=== PATIENT | female | born 1995 | race African-American/Black ===

== ENCOUNTER 2022-04-14 11:13 | Emergency (ER) | payer OTHER, SELFPAY ==
[2022-04-14] VITALS (8 sets, daily range): BP systolic 106–123; BP diastolic 63–79; PULSE 63–99; RESP 12–20; TEMP 37; O2SAT 98–100
--- NOTE | ~2022-04-14 | CT_ITS ---
EXAMINATION: CT brain wo con INDICATION: Head injury COMPARISON: None TECHNIQUE: Standard unenhanced head CT. The dose-length product (DLP) was 605.33 mGy-cm. The mA was a djusted according to patient size. Iterative reconstruction technique was employed. FINDINGS: There is no intracranial hemorrhage, acute infarction, or abnormal mass lesion. The ventric les are normal. There is no abnormal mass effect or midline shift. The jett-white matter differentiat ion is normal. The basal cisterns are patent. The orbits are normal. The paranasal sinuses, mastoids and calvarium are normal. IMPRESSION: 1. No acute intracranial abnormality. Reviewed, dictated and finalized at location A.
--- NOTE | ~2022-04-14 | XR_ITS ---
EXAMINATION: XR hip BI 2V w AP pelvis DATE: 04/14/2022 14:53 INDICATION: Pelvic pain post fall TECHNIQUE: Anteroposterior view of the pelvis and anteroposterior and frog-leg lateral views of the l eft hip and anteroposterior and frog-leg lateral views of the right hip and were obtained. COMPARISON: None. FINDINGS: Bone alignment is normal. Sacral arches are intact. No fracture. Joint spaces are normal. Soft tissue s are unremarkable. IMPRESSION: 1. Negative pelvis and bilateral hip radiographs. Reviewed, dictated and finalized at location B.
--- NOTE | ~2022-04-14 | XR_ITS ---
EXAMINATION: XR chest 2V DATE: 04/14/2022 14:53 INDICATION: Fall TECHNIQUE: frontal and lateral views of the chest were obtained. COMPARISON: None FINDINGS: The lungs are clear with no focal airspace opacities, pulmonary edema, pleural effusion or pneumothor ax. The cardiomediastinal silhouette is normal. Visualized bones and soft tissues are unremarkable. IMPRESSION: 1. Normal chest radiograph. Reviewed, dictated and finalized at location B. IMPRESSION: 1. Normal chest radiograph.
--- NOTE | ~2022-04-14 | CT_ITS ---
EXAMINATION: CT cervical spine wo con DATE: 04/14/2022 14:43 INDICATION: Neck injury. TECHNIQUE: Computed tomography (CT) of the cervical spine was performed without intravenous contrast. Automated exposure control and iterative reconstruction technique were employed. The dose-length pro duct was 218.76 mGy-cm. COMPARISON: None FINDINGS: There is kyphosis of cervical spine. Vertebral body heights and intervertebral disc heights are normal. At C7-T1, there is mild bilateral facet joint osteoarthritis. No neural foraminal stenos is or central canal stenosis. IMPRESSION: 1. No fracture. Reviewed, dictated and finalized at location A. IMPRESSION: 1. No fracture.
--- NOTE | ~2022-04-14 | CT_ITS ---
EXAMINATION: CT thoracic lumbar wo con DATE: 04/14/2022 14:43 INDICATION: Back injury and pain. TECHNIQUE: Computed tomography (CT) of the thoracic and lumbar spine was performed without intravenou s contrast. Automated exposure control and iterative reconstruction technique were employed. The dose -length product was 1732.56 mGy-cm. COMPARISON: None FINDINGS: CT THORACIC SPINE: There is 3 degrees dextrocurvature of upper thoracic spine. There are Schmorl's no bhavana from T2-T3 through T8-T9. There is multilevel mild facet joint osteoarthritis. No neural foramina l stenosis or central canal stenosis. CT LUMBAR SPINE: Bone alignment is normal. There is mild chronic anterior wedging of T12 and L1 verte bral bodies. Intervertebral disc heights are normal. The following disc levels are specifically discu ssed: L1-L2: The disc does not extend beyond the endplate margin. There is mild bilateral facet joint osteo arthritis. There is no neural foraminal stenosis. There is no central canal stenosis. L2-L3: The disc is mildly bulging. There is mild bilateral facet joint osteoarthritis. There is mild bilateral neural foraminal stenosis. There is mild central canal stenosis. L3-L4: The disc is bulging. There is no facet joint osteoarthritis. There is mild bilateral neural fo raminal stenosis. There is mild central canal stenosis. L4-L5: The disc is bulging. There is no facet joint osteoarthritis. There is mild bilateral neural fo raminal stenosis. There is mild central canal stenosis. L5-S1: The disc is bulging. There is mild bilateral facet joint osteoarthritis. There is mild bilater al neural foraminal stenosis. There is mild central canal stenosis. IMPRESSION: 1. No acute fracture. 2. Mild thoracic and lumbar spondylosis. Reviewed, dictated and finalized at location A.
--- NOTE | 2022-04-14 12:19 | ED.GENADULT ---
HPI - General Adult General Chief complaint: Unspecified Stated complaint: bodyaches, light sensitivity (has MS) Time Seen by Provider: 04/14/22 12:00 Source: patient Mode of arrival: ambulatory Limitations: no limitations History of Present Illness HPI narrative: The patient is a 26-year-old female with a history of multiple sclerosis presenting to the emergency department for evaluation of allover body pain, myalgias following a fall 2 days ago. Patient states that she struggles with chronic myalgias and body pain that she believes is secondary to her MS diagnosis. Patient is followed with neurology at [facility], has recently been referred to Dr. Michelle Rodrigues, neurologist at [facility] for her multiple sclerosis. Patient states that 2 days ago she fell after tripping over her dog in her house, causing her to fall backwards. She does not recall if there is specific head trauma or loss of consciousness. Patient reports that she has chronic headache but does have a history of migraine headache. She has been taking sumatriptan with some improvement in her symptoms. She also did initiate Tylenol the past 2 mornings which has mildly improved her symptoms. Patient reports pain throughout her entire spine, in the center of the spine described as aching, worse with movement. She has had difficulty ambulating secondary to the pain. She reports chest wall pain and hip pain. She denies frontal chest pain, shortness of breath, palpitations, prodromal symptoms prior to the fall. She denies bruising, deformities. She has been ambulatory with a cane which is her baseline. She does report headache over her forehead without vision changes. She does report mild light sensitivity, denies nausea or vomiting. Related Data Home Medications Medication Instructions Recorded Confirmed acetaminophen 500 mg capsule 500 mg PO Q6H PRN Pain 10/07/21 10/07/21 cholecalciferol (vitamin D3) 50 50 mcg PO DAILY 10/07/21 10/07/21 mcg (2,000 unit) capsule cyclobenzaprine 5 mg tablet 5 mg PO TID PRN Pain 10/07/21 10/07/21 dimethyl fumarate 240 mg 240 mg PO BID 10/07/21 10/07/21 capsule,delayed release (Tecf[employer]) gabapentin 300 mg capsule 300 mg PO DAILY 10/07/21 10/07/21 nortriptyline 25 mg capsule 25 mg PO QHS 10/07/21 10/07/21 sumatriptan succinate 100 mg tablet mg PO 04/14/22 Allergies Allergy/AdvReac Type Severity Reaction Status Date / Time dimethyl fumarate Allergy Intermediate hot flashes Verified 04/14/22 11:38 [From [facility]] Review of Systems Review of Systems: CONSTITUTIONAL: Denies fever, chills, or sweats. EYES: Denies visual changes, redness, or discharge. Reports light sensitivity ENT: Denies rhinorrhea, congestion, sore throat, or otalgia. CARDIOVASCULAR: Reports chest wall pain on the right side of her chest worse with movement, denies palpitations or edema RESPIRATORY: Denies cough or dyspnea. GASTROINTESTINAL: Denies abdominal pain, nausea, vomiting, or diarrhea. GENITOURINARY: Denies dysuria or hematuria. SKIN: Denies rash or itching. MUSCULOSKELETAL: Reports back and shoulder pain, reports hip pain, reports myalgias NEUROLOGIC: Reports headache without focal numbness, reports chronic extremity weakness PMFSH Past Medical History Medical History (Updated 04/14/22 @ 15:22 by Yocasta Yanez MD) Anxiety Headache Hypertension Social History Social History (Updated 04/14/22 @ 12:22 by Yocasta Yanez MD) Smoking status: Never smoker Alcohol intake: never Substance use: never Living arrangements: with family Gender identity (if verbalized by the patient): Female Exam Narrative: GENERAL: Awake, alert, conversant HEAD: Normocephalic, atraumatic. EYES: PERRLA and EOMI. ENT: Nares clear, no rhinorrhea or epistaxis. Mucous membranes moist. NECK: Supple. CHEST: No respiratory distress, breathing even and non labored HEART: Regular rate, sinus rhythm ABDOMEN:Non
[2022-04-14] MEDS: SODIUM CHLORIDE 0.9% IV 1,000 ML 999 ML IV CONT (12:45)
[2022-04-14] MEDS: ACETAMINOPHEN 500 MG TABLET 1000 MG PO (12:45)
[2022-04-14 13:13] LABS: Anion Gap 6 mmol/L (8-16); Blood Urea Nitrogen 5 mg/dL (7-17); Calcium 8.9 mg/dL (8.4-10.2); Carbon Dioxide 27 mmol/L (22-30); Chloride 104 mmol/L (98-107); Estimated CRCL calculation 113 ml/min; Estimated Glomerular Filt Rate > 60; Glucose 89 mg/dL (65-110); Potassium 4.1 mmol/L (3.4-5.0); Sodium 137 mmol/L (137-145)
[2022-04-14 13:17] LABS: CRP < 0.5 mg/dL (<1.0); Creatine Kinase 59 U/L (30-135)
[2022-04-14 13:38] LABS: Basophils Absolute Auto 0.1 K/mm3 (0.0-0.1); Basophils Percent Auto 0.7 % (0.2-1.2); Eosinophils Absolute Auto 0.2 K/mm3 (0-0.3); Hematocrit 38.9 % (37.0-47.0); Hemoglobin 12.6 g/dL (12.0-15.0); Immature Granulocyte Absolute 0.02 K/mm3 (0.00-0.031); Immature Granulocyte Percent A 0.3 % (0-0.5); Lymphocytes Absolute Auto 1.67 K/mm3 (0.9-3.2); Lymphocytes Percent Auto 22.3 % (18.3-44.2); Mean Corpuscular HGB Conc 32.4 g/dl (32-36); Mean Corpuscular Hemoglobin 30.4 pg (26-34); Mean Platelet Volume 8.8 fl (7.4-10.4); Monocytes Absolute Auto 0.6 K/mm3 (0.1-0.6); Monocytes Percent Auto 7.5 % (2.6-8.5); Neutrophils Absolute Auto 5.1 K/mm3 (1.3-6.7); Neutrophils Percent Auto 67.2 % (45.5-73.1); Platelet Count Result 386 k/mm3 (150-375); Red Blood Count 4.14 M/mm3 (4.2-5.4); Red Cell Distribution Width 12.2 % (11.5-14.5); White Blood Count 7.5 K/mm3 (4.5-10.0)
[2022-04-14 13:43] LABS: Erythrocyte Sedimentation Rate 18 mm/hr (0-20)
== END 2022-04-14 17:25 | disposition home or self-care (01) ==
PROVIDERS: Emergency Provider Emergency Medicine; PCP Family Medicine
DX: M79.10 Myalgia, unspecified site (principal); M47.816 Spondylosis without myelopathy or radiculopathy, lumbar region; G35 Multiple sclerosis; M47.814 Spondylosis without myelopathy or radiculopathy, thoracic region; I10 Essential (primary) hypertension; F41.9 Anxiety disorder, unspecified
CPT/HCPCS: 36415; 70450; 71046; 72125; 72128; 72131; 73521; 80048; 81025; 82550; 85025; 85652; 86140; 96360; 99284; A9270; J7030

== ENCOUNTER 2022-05-16 10:01 | Emergency (ER) | payer OTHER, SELFPAY ==
--- NOTE | ~2022-05-16 | XR_ITS ---
EXAMINATION:XR_[id number] DATE: 05/16/2022 11:58 INDICATION: Neck pain TECHNIQUE: AP, lateral, and odontoid views of the cervical spine are provided. COMPARISON: None FINDINGS: Alignment is normal. The odontoid is intact. No fracture is identified. Vertebral body heig hts and disk spaces are normal. Prevertebral soft tissues are normal. IMPRESSION: 1. No acute osseous abnormality. Reviewed, dictated and finalized at location A. ING ANALYST
[2022-05-16 10:05] VITALS: BP 105/66; PULSE 87; RESP 12; TEMP 37.2; O2SAT 100
--- NOTE | 2022-05-16 11:54 | ED.GENADULT ---
HPI - General Adult General Chief complaint: Back Pain/Injury Stated complaint: unresolved pain Time Seen by Provider: 05/16/22 10:58 History of Present Illness HPI narrative: 26-year-old female history of multiple sclerosis say likely try to try who sees our neurologist at [facility] and an MS specialist through [facility] presents to the emergency room with unresolving neck and mid back pain stemming from ground-level fall 5 weeks ago. Patient was seen here in the emergency room on April 14 after tripping over her dog causing her to fall backwards. Reports had extensive imaging performed at that time which showed no acute bony abnormalities. Patient states that she has been experiencing pain since an injury and has not followed up with her neurologist or her MS specialist. Patient states her pain is primarily located in her neck that radiates into her shoulders, worsening with movement. Denies any vision changes. Denies any changes to her baseline weakness. Has been taking her nortriptyline and Flexeril with minimal relief. Related Data Home Medications Medication Instructions Recorded Confirmed acetaminophen 500 mg capsule 500 mg PO Q6H PRN Pain 10/07/21 10/07/21 cholecalciferol (vitamin D3) 50 50 mcg PO DAILY 10/07/21 10/07/21 mcg (2,000 unit) capsule cyclobenzaprine 5 mg tablet 5 mg PO TID PRN Pain 10/07/21 10/07/21 dimethyl fumarate 240 mg 240 mg PO BID 10/07/21 10/07/21 capsule,delayed release (Tecf[employer]a) gabapentin 300 mg capsule 300 mg PO DAILY 10/07/21 10/07/21 nortriptyline 25 mg capsule 25 mg PO QHS 10/07/21 10/07/21 sumatriptan succinate 100 mg tablet mg PO 04/14/22 Allergies Allergy/AdvReac Type Severity Reaction Status Date / Time dimethyl fumarate Allergy Intermediate hot flashes Verified 05/16/22 11:17 [From [employer]] Review of Systems Review of Systems: CONSTITUTIONAL: Denies fever, chills, or sweats. EYES: Denies visual changes, redness, or discharge. ENT: Denies rhinorrhea, congestion, sore throat, or otalgia. CARDIOVASCULAR: Denies chest pain, palpitations, or edema. RESPIRATORY: Denies cough or dyspnea. GASTROINTESTINAL: Denies abdominal pain, nausea, vomiting, or diarrhea. GENITOURINARY: Denies dysuria or hematuria. SKIN: Denies rash or itching. MUSCULOSKELETAL: Reports neck and back pain, myalgias NEUROLOGIC: Denies headache, numbness, dizziness, or weakness. PSYCHIATRIC: Denies anxiety or depression. [facility] Past Medical History Medical History Anxiety Headache Hypertension Social History Social History Smoking status: Never smoker Alcohol intake: never Substance use: never Gender identity (if verbalized by the patient): Female Exam Narrative: GENERAL: Well-appearing, well-nourished, no physical limitations, and in no acute distress. HEAD: Normocephalic, atraumatic. EYES: Conjunctivae normal, PERRLA and EOMI. ENT: External nose normal, Nares clear, no rhinorrhea or epistaxis. Mucous membranes moist. Oropharynx without tonsillar hypertrophy exudate or other lesions. External ears normal, bilateral TMs normal bilaterally NECK: Supple. No meningeal signs. No adenopathy or masses. No carotid bruits or JVD CHEST: Clear to auscultation. No respiratory distress. No wheezes rales or rhonchi. No tenderness. HEART: Regular rate and rhythm. No murmur heard. Normal peripheral pulses. BACK: Midline cervical/thoracic/lumbar tenderness, no step-offs, no bony abnormalities, full range of motion. MS: Tenderness to bilateral trap muscles with noted muscle spasms SKIN: Warm, dry, no rash. No noted wounds NEURO: No focal deficits. Alert and oriented x3. MAEW. CN's II-XI intact bilaterally, normal gait PSYCH: Cooperative. Normal mood and affect. Course Vital Signs Vital signs: Vital Signs Temperature 37.2 C 05/16/22 10:05 Pulse Rate 87 05/16/22 1
[2022-05-16 12:16] LABS: Basophils Absolute Auto 0.1 K/mm3 (0.0-0.1); Basophils Percent Auto 0.7 % (0.2-1.2); Eosinophils Absolute Auto 0.1 K/mm3 (0-0.3); Eosinophils Percent Auto 1.6 % (0-4.4); Hematocrit 37.5 % (37.0-47.0); Hemoglobin 12.5 g/dL (12.0-15.0); Immature Granulocyte Absolute 0.02 K/mm3 (0.00-0.031); Immature Granulocyte Percent A 0.3 % (0-0.5); Lymphocytes Absolute Auto 1.85 K/mm3 (0.9-3.2); Lymphocytes Percent Auto 24.5 % (18.3-44.2); Mean Corpuscular HGB Conc 33.3 g/dl (32-36); Mean Corpuscular Hemoglobin 30.4 pg (26-34); Mean Corpuscular Volume 91.2 fl (80-100); Mean Platelet Volume 8.8 fl (7.4-10.4); Monocytes Absolute Auto 0.5 K/mm3 (0.1-0.6); Monocytes Percent Auto 6.6 % (2.6-8.5); Neutrophils Percent Auto 66.3 % (45.5-73.1); Platelet Count Result 375 k/mm3 (150-375); Red Blood Count 4.11 M/mm3 (4.2-5.4); Red Cell Distribution Width 11.9 % (11.5-14.5); White Blood Count 7.6 K/mm3 (4.5-10.0)
[2022-05-16 12:26] VITALS: BP 106/64; PULSE 84; RESP 18; O2SAT 100
[2022-05-16 12:26] LABS: Anion Gap 10 mmol/L (8-16); Blood Urea Nitrogen 3 mg/dL (7-17); Calcium 8.9 mg/dL (8.4-10.2); Carbon Dioxide 28 mmol/L (22-30); Chloride 101 mmol/L (98-107); Estimated CRCL calculation 114 ml/min; Estimated Glomerular Filt Rate > 60; Glucose 85 mg/dL (65-110); Potassium 3.9 mmol/L (3.4-5.0); Sodium 139 mmol/L (137-145)
[2022-05-16 13:29] VITALS: BP 101/74; PULSE 86; RESP 17; O2SAT 100
== END 2022-05-16 13:31 | disposition home or self-care (01) ==
PROVIDERS: Emergency Provider Nurse Practitioner Family; PCP Family Medicine
DX: M54.2 Cervicalgia (principal); G35 Multiple sclerosis; M79.10 Myalgia, unspecified site; I10 Essential (primary) hypertension; W01.0XXA Fall on same level from slipping, tripping and stumbling without subsequent striking against object, initial encounter
CPT/HCPCS: 36415; 72040; 80048; 85025; 99283

== ENCOUNTER 2023-02-28 16:04 | Emergency (ER) | payer OTHER, SELFPAY ==
[2023-02-28] VITALS (9 sets, daily range): BP systolic 93–112; BP diastolic 70–81; PULSE 90; RESP 18; O2SAT 98–100
--- NOTE | ~2023-02-28 | XR_ITS ---
EXAMINATION: XR chest 2V DATE: 02/28/2023 16:43 INDICATION: Chest pain TECHNIQUE: frontal and lateral views of the chest were obtained. COMPARISON: Chest radiograph dated 04/14/2022 FINDINGS: The lungs remain clear with no focal airspace opacities, pulmonary edema, pleural effusion or pneumot horax. The cardiomediastinal silhouette is normal. Visualized bones and soft tissues are unremarkable . IMPRESSION: 1. No acute cardiopulmonary disease. Reviewed, dictated and finalized at location A.
--- NOTE | 2023-02-28 16:10 | ECG_ITS ---
Measurements Intervals [place] Rate: 100 P: 54 IL: 137 QRS: 15 QRSD: 83 T: 8 QT: 320 QTc: 413 Interpretive Statements SINUS TACHYCARDIA NONSPECIFIC T-WAVE ABNORMALITY ABNORMAL ECG NO PREVIOUS ECG AVAILABLE FOR COMPARISON Electronically Signed On 03-01-2023 11:57:52 CDT by Dave Lutz M.D.
[2023-02-28 16:44] LABS: Basophils Absolute Auto 0.1 K/mm3 (0.0-0.1); Basophils Percent Auto 0.7 % (0.2-1.2); Eosinophils Absolute Auto 0.1 K/mm3 (0-0.3); Eosinophils Percent Auto 1.5 % (0-4.4); Hematocrit 38.8 % (37.0-47.0); Hemoglobin 12.7 g/dL (12.0-15.0); Immature Granulocyte Absolute 0.01 K/mm3 (0.00-0.031); Immature Granulocyte Percent A 0.1 % (0-0.5); Lymphocytes Absolute Auto 2.72 K/mm3 (0.9-3.2); Lymphocytes Percent Auto 33.5 % (18.3-44.2); Mean Corpuscular HGB Conc 32.7 g/dl (32-36); Mean Corpuscular Hemoglobin 29.3 pg (26-34); Mean Corpuscular Volume 89.6 fl (80-100); Mean Platelet Volume 8.9 fl (7.4-10.4); Monocytes Absolute Auto 0.6 K/mm3 (0.1-0.6); Monocytes Percent Auto 6.8 % (2.6-8.5); Neutrophils Absolute Auto 4.7 K/mm3 (1.3-6.7); Neutrophils Percent Auto 57.4 % (45.5-73.1); Platelet Count Result 448 k/mm3 (150-375); Red Blood Count 4.33 M/mm3 (4.2-5.4); Red Cell Distribution Width 12.6 % (11.5-14.5); White Blood Count 8.1 K/mm3 (4.5-10.0)
[2023-02-28 16:57] LABS: Partial Thromboplastin Time 29.1 SECONDS (22.3-36.8); Prothrombin Time 14.1 Seconds (11.1-14.7)
[2023-02-28 16:58] LABS: Alanine Aminotransferase 14 U/L (6-35); Albumin Level 4.3 g/dL (3.5-5.1); Alkaline Phosphatase 60 U/L (38-126); Anion Gap 8 mmol/L (8-16); Aspartate Amino Transferase 21 U/L (14-36); Bilirubin,Total 0.3 mg/dL (0.2-1.3); Blood Urea Nitrogen 2 mg/dL (7-17); Calcium 9.1 mg/dL (8.4-10.2); Carbon Dioxide 23 mmol/L (22-30); Chloride 108 mmol/L (98-107); Estimated Glomerular Filt Rate > 60; Glucose 94 mg/dL (65-110); Lipase 70 U/L (23-300); Potassium 3.6 mmol/L (3.4-5.0); Sodium 139 mmol/L (137-145)
[2023-02-28 17:09] LABS: Troponin I < 0.012 ng/mL (0.000-0.034)
[2023-02-28] MEDS: ASPIRIN 81 MG CHEWABLE TABLET 324 MG PO (17:13)
--- NOTE | 2023-02-28 17:45 | ED.CHESTPAIN ---
HPI - Chest Pain General Chief Complaint: Chest Pain Stated Complaint: cp x 2 months Time Seen by Provider: 02/28/23 16:16 History of Present Illness HPI narrative: Patient is a 27-year-old female who presents ER with chest pain. Ongoing for 2 months. Last 5 minutes at a time. Aching and central. Occasionally sharp. No exertional component. She does not believe it is related to anxiety. She has been seen by her PCP and referred to a cfa. She has had no additional testing for this. She does struggle with a mass in is undergoing a lot of testing next week. This has increased her anxiousness but she does not feel necessarily that that is causing her chest discomfort. No fevers or chills or sweats. No productive cough. Cannot identify any alleviating factors Related Data Home Medications Medication Instructions Recorded Confirmed acetaminophen 500 mg capsule 500 mg PO Q6H PRN Pain 10/07/21 10/07/21 cholecalciferol (vitamin D3) 50 50 mcg PO DAILY 10/07/21 10/07/21 mcg (2,000 unit) capsule cyclobenzaprine 5 mg tablet 5 mg PO TID PRN Pain 10/07/21 10/07/21 dimethyl fumarate 240 mg 240 mg PO BID 10/07/21 10/07/21 capsule,delayed release (Tecf[employer]) gabapentin 300 mg capsule 300 mg PO DAILY 10/07/21 10/07/21 nortriptyline 25 mg capsule 25 mg PO QHS 10/07/21 10/07/21 sumatriptan succinate 100 mg tablet mg PO 04/14/22 Allergies Allergy/AdvReac Type Severity Reaction Status Date / Time dimethyl fumarate Allergy Intermediate hot flashes Verified 05/16/22 11:17 [From [employer]] Review of Systems Review of Systems: All systems reviewed & are unremarkable except as noted in HPI and below Constitutional: Constitutional: Denies chills, Denies fatigue and Denies fever(s) ENT: Denies nasal congestion and Denies sore throat Cardiovascular: Cardiovascular: Reports chest pain, Denies rapid heart rate and Denies radiating jaw, neck or arm pain Respiratory: Respiratory: Denies cough, Denies dyspnea and Denies wheezing Gastrointestinal: Gastrointestinal: Denies abdominal pain, Denies diarrhea, Denies nausea and Denies vomiting Genitourinary: Genitourinary: Denies dysuria and Denies flank pain Neurologic: Reports system reviewed and no additional complaints, except as documented Psychiatric: Psychiatric: Denies anxiety and Denies depression [facility] Past Medical History Medical History (Updated 02/28/23 @ 17:57 by Jaden Coello MD) Anxiety Headache Hypertension Multiple sclerosis Surgical History Surgical History (Updated 02/28/23 @ 17:57 by Jaden Coello MD) No history of previous surgery Social History Social History Smoking status: Never smoker Alcohol intake: never Substance use: never Living arrangements: with family Gender identity (if verbalized by the patient): Female Exam Narrative: GENERAL: Well-appearing, well-nourished, and in no acute distress. HEAD: Normocephalic, atraumatic. ENT: Mucous membranes moist. NECK: Supple. CHEST: Clear to auscultation. No respiratory distress. HEART: Regular rate and rhythm. Normal peripheral pulses. ABDOMEN: Soft, nontender, nondistended. EXTREMITIES: Normal range of motion. No edema. SKIN: Warm, dry, no rash. NEURO: Alert and oriented x3. PSYCH: Normal mood and affect but with pressured speech. MDM - Chest Pain MDM Narrative Medical decision making narrative: -Presentation: 47-year-old female presented ER with chest pain x2 months. -DDX includes but is not limited to: ACS, anxiety, pneumonia -Co-morbidities complicating care: MS -Social determinants of health: None -External Chart Review: None -Hx from independent Sources: Patient -Independent interpretation of studies: Negative troponin. Renal function electrolytes normal. Normal CBC and coagulation studies. Chest x-ray without acute process. EKG with nonspecific T wave changes without ST elevat
== END 2023-02-28 18:19 | disposition home or self-care (01) ==
PROVIDERS: Emergency Medicine; Emergency Provider Emergency Medicine; PCP Family Medicine
DX: R07.89 Other chest pain (principal); I10 Essential (primary) hypertension
CPT/HCPCS: 36415; 71046; 80053; 83690; 84484; 85025; 85610; 85730; 93005; 99284; A9270

== ENCOUNTER 2023-06-04 18:26 | Emergency (ER) | payer OTHER, SELFPAY ==
--- NOTE | ~2023-06-04 | CT_ITS ---
EXAMINATION: CT brain wo con DATE: 06/04/2023 21:33 INDICATION: Pain with extraocular movements TECHNIQUE: Computed tomography (CT) of the head was performed without intravenous contrast. Sagittal and coronal reconstructions were performed. The mA was adjusted according to patient size. Iterative reconstruction technique was employed. The dose-length product was 605.33 mGy-cm. COMPARISON: head CT dated 04/14/2022 FINDINGS: No acute intracranial hemorrhage, acute infarction or abnormal extra axial fluid collection. Ventricl es are normal and symmetric. No mass/mass effect. The orbits, paranasal sinuses and mastoid air cells are normal. IMPRESSION: 1. Normal head CT. Reviewed, dictated and finalized at location A. TION CLERK IMPRESSION: 1. Normal head CT.
[2023-06-04 18:29] VITALS: BP 99/66; PULSE 108; RESP 18; TEMP 37.5; O2SAT 99
--- NOTE | 2023-06-04 21:04 | ED.GENADULT ---
HPI - General Adult General Chief complaint: Headache Stated complaint: migrane Time Seen by Provider: 06/04/23 20:49 Source: patient Mode of arrival: ambulatory Limitations: no limitations History of Present Illness HPI narrative: This is a 27-year-old female with PMH of MS, migraines who presents to the ED with chief complaint of headache onset yesterday. Reports that this headache is more severe than her normal migraines. Reports the headache is diffuse. She reports that she has had intermittent feelings of paresthesias in all 4 extremities as well as body aches throughout the body. endorses nausea but no vomiting. Endorses pain with eye movements, bilaterally. Denies any recent illness. Denies fevers, chills, syncope, vision change, speech change, seizure, abdominal pain, chest pain, shortness of breath, cough, sore throat, UA. Related Data Home Medications Medication Instructions Recorded Confirmed acetaminophen 500 mg capsule 500 mg PO Q6H PRN Pain 10/07/21 10/07/21 cholecalciferol (vitamin D3) 50 50 mcg PO DAILY 10/07/21 10/07/21 mcg (2,000 unit) capsule cyclobenzaprine 5 mg tablet 5 mg PO TID PRN Pain 10/07/21 10/07/21 dimethyl fumarate 240 mg 240 mg PO BID 10/07/21 10/07/21 capsule,delayed release (Tecf[employer]) gabapentin 300 mg capsule 300 mg PO DAILY 10/07/21 10/07/21 nortriptyline 25 mg capsule 25 mg PO QHS 10/07/21 10/07/21 sumatriptan succinate 100 mg tablet mg PO 04/14/22 Allergies Allergy/AdvReac Type Severity Reaction Status Date / Time dimethyl fumarate Allergy Intermediate hot flashes Verified 05/16/22 11:17 [From [employer]] Review of Systems Review of Systems: All systems as dictated in [facility] Past Medical History Medical History (Updated 06/04/23 @ 22:50 by Tonio Baldwin PA-C) Anxiety Headache Hypertension Multiple sclerosis Surgical History Surgical History (Updated 02/28/23 @ 17:57 by Jaden Coello MD) No history of previous surgery Social History Social History Smoking status: Never smoker Alcohol intake: never Substance use: never Living arrangements: with family Gender identity (if verbalized by the patient): Female Exam Narrative: GENERAL: Well-appearing, well-nourished, and in no acute distress. HEAD: Normocephalic, atraumatic. EYES: PERRLA and EOMI. ENT: Nares clear, no rhinorrhea or epistaxis. Mucous membranes moist. Oropharynx without tonsillar hypertrophy exudate or other lesions. NECK: Supple. No adenopathy or masses. CHEST: No respiratory distress. Clear to auscultation. No wheezes rales or rhonchi HEART: Regular rate and rhythm. No murmur heard. Normal peripheral pulses. ABDOMEN: Soft, nontender, nondistended, normal active bowel sounds. MSK: Normal range of motion. No edema. SKIN: Warm, dry, no rash. NEURO: Alert and oriented x4. No focal deficits. PSYCH: Normal mood and affect. Course Vital Signs Vital signs: Vital Signs Temperature 99.5 F 06/04/23 18:29 Pulse Rate 108 H 06/04/23 18:29 Respiratory Rate 18 06/04/23 18:29 Blood Pressure 99/66 L 06/04/23 18:29 Pulse Oximetry 99 06/04/23 18:29 Oxygen Delivery Room Air 06/04/23 18:29 Temperature 99.5 F 06/04/23 18:29 Pulse Rate 108 H 06/04/23 18:29 Respiratory Rate 18 06/04/23 18:29 Blood Pressure 99/66 L 06/04/23 18:29 Pulse Oximetry 99 06/04/23 18:29 Oxygen Delivery Room Air 06/04/23 18:[address] [facility] Narrative Medical decision making narrative: This is a 27-year-old female who presents to the ED with chief complaint of body aches and headache for the past 2 days. Vitals show initial slight tachycardia but hemodynamically stable. Mild temperature of 99.5? F. lab work is overall unremarkable. Urinalysis negative. Head CT negative. Viral swabs positive for COVID. Symptoms consistent with viral syndrome due to COVID. Pt will be discharged
[2023-06-04] MEDS: ONDANSETRON INJ 4 MG/2 ML VIAL IV PUSH (21:43)
[2023-06-04] MEDS: KETOROLAC 15 MG/ML VIAL (*BKC) IV PUSH (21:43)
[2023-06-04 21:51] LABS: Basophils Absolute Auto 0.1 K/mm3 (0.0-0.1); Basophils Percent Auto 0.5 % (0.2-1.2); Eosinophils Percent Auto 0.1 % (0-4.4); Hemoglobin 11.6 g/dL (12.0-15.0); Immature Granulocyte Absolute 0.03 K/mm3 (0.00-0.031); Immature Granulocyte Percent A 0.3 % (0-0.5); Lymphocytes Percent Auto 5.1 % (18.3-44.2); Mean Corpuscular HGB Conc 33.1 g/dl (32-36); Mean Corpuscular Hemoglobin 29.8 pg (26-34); Mean Platelet Volume 9.1 fl (7.4-10.4); Monocytes Absolute Auto 1.1 K/mm3 (0.1-0.6); Monocytes Percent Auto 11.6 % (2.6-8.5); Neutrophils Absolute Auto 8.1 K/mm3 (1.3-6.7); Neutrophils Percent Auto 82.4 % (45.5-73.1); Platelet Count Result 356 k/mm3 (150-375); Red Blood Count 3.89 M/mm3 (4.2-5.4); Red Cell Distribution Width 12.7 % (11.5-14.5); White Blood Count 9.8 K/mm3 (4.5-10.0)
[2023-06-04 21:56] LABS: Influenza A QL RT-PCR Negative (Negative); Influenza B QL RT-PCR Negative (Negative); RSV RNA, RT-PCR Negative (Negative); SARS-CoV-2 RNA PCR Positive (Negative)
[2023-06-04 21:56] LABS: Appearance Urine Clear (Clear); Bilirubin Urine Negative (Negative); Blood Urine Negative (Negative); Color Urine Yellow (Yellow); Glucose Urine UA Negative (Negative); Ketones Urine Negative (Negative); Leukocyte Esterase Ur Negative LEU/UL (Negative); Nitrate Urine Negative (Negative); Protein Urine Negative (Negative); Specific Grav Ur 1.003 (1.001-1.035); Urobilinogen Urine 0.2 mg/dL (<2.0); pH Urine 6.5 (5.0-9.0)
[2023-06-04 22:02] LABS: Alanine Aminotransferase 12 U/L (6-35); Albumin Level 4.2 g/dL (3.5-5.1); Alkaline Phosphatase 63 U/L (38-126); Anion Gap 12 mmol/L (8-16); Aspartate Amino Transferase 21 U/L (14-36); Bilirubin,Total 0.4 mg/dL (0.2-1.3); Blood Urea Nitrogen 4 mg/dL (7-17); Calcium 9.1 mg/dL (8.4-10.2); Carbon Dioxide 20 mmol/L (22-30); Chloride 102 mmol/L (98-107); Estimated CRCL calculation 131 ml/min; Estimated Glomerular Filt Rate > 60; Glucose 99 mg/dL (65-110); Potassium 3.5 mmol/L (3.4-5.0); Sodium 134 mmol/L (137-145)
[2023-06-04 22:03] LABS: Add Urine Microscopic? NO
[2023-06-04] MEDS: ACETAMINOPHEN 500 MG TABLET 1000 MG PO (22:42)
== END 2023-06-04 23:18 | disposition home or self-care (01) ==
PROVIDERS: Emergency Provider Physician Assistant; PCP Family Medicine
DX: U07.1 COVID-19 (principal); G35 Multiple sclerosis; I10 Essential (primary) hypertension; F41.9 Anxiety disorder, unspecified
CPT/HCPCS: 36415; 70450; 80053; 81003; 85025; 87637; 96374; 96375; 99284; A9270; J1885; J2405

== ENCOUNTER 2024-09-18 17:13 | Emergency (ER) | payer OTHER, SELFPAY ==
[2024-09-18 17:23] VITALS: BP 104/68; PULSE 86; RESP 16; TEMP 36.7; O2SAT 100
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
[2024-09-18 17:46] LABS: EDCOVIDSCREEN Negative (Negative); EDINFLUASCREEN Negative (Negative); EDINFLUBSCREEN Negative (Negative)
== END 2024-09-18 18:29 | disposition home or self-care (01) ==
PROVIDERS: Emergency Provider Nurse Practitioner Family; PCP Family Medicine
DX: J06.9 Acute upper respiratory infection, unspecified (principal); Z20.822 Contact with and (suspected) exposure to COVID-19; G35 Multiple sclerosis; I10 Essential (primary) hypertension
CPT/HCPCS: 87426; 87804; 99213; G0463

== ENCOUNTER 2024-09-23 01:11 | Emergency (ER) | payer OTHER, SELFPAY ==
--- OUTSIDE RECORDS SUMMARY | 2024-09-23 01:14 | XMS_ITS | Encounter Summary ---
Author Organization [facility] Address [address] [place] [address] Care Team Providers Care Seo Coordinator Name Role Phone Unavailable Primary Care Provider Unavailabl e Encounter Details Date Type Department Care Team (Late st Contact Info) Description 03/10/2023 Abstract [facility] Neurology [place] [id number] [place] [address] Alba Pappas Social History Tobacco Use Types Packs/Day Years Used Date Smoking Tobacco: Never Smokeless Tobacco: Never Alcohol Use Standard Drinks/Week Comments Never 0 (1 standard drink = 0.6 oz pur e alcohol) Comments Unknown Sex and Gender Information Value Date Recorded Sex Assigned at Not on file Legal Sex Female 12:01 PM CDT Gender Identity Not on file Sexual Orientation Not on file documented as of this encounter Plan of Treatment Not on file documented as of this encounter Visit Diagnoses Not on filedocumented in this encounter
--- OUTSIDE RECORDS SUMMARY | 2024-09-23 01:14 | XMS_ITS | Clinical Summary ---
Author Organization [facility] [employer] Address [address] [place] [address] Care Team Providers Care Release And Technical Records Clerk Name Role Phone Romeo Mcqueen MD Primary Care Provider [phone] Source Comments [facility] [employer],non-owned Affiliates and Associated Physician Practices is amultiple site organization consisting of ambulatory clinics and hospital sitesin [place], [place], [place] and [place]. This disclosure is being madepursuant to the Care Everywhere program and may not contain all information available regarding this patient. Last updated 18.[facility] [employer] Allergies Active Allergy Reactions Criticality Noted Date Comments Glatiramer Rash Medium 02/15/2023 Medications * Be aware that medications may not be up to date on this document. Alwaysverify current medications with the patient. Medication Sig Dispensed Refills Start Date End Date Status VITAMIN D PO Active TECFIDERA kitIndications:M S (multiple sclerosis) (FORMERLY [facility]) Take 1 (one) kit by mouth as directed Take one 120 mg capsule twice daily for 7 days then take one 240 mg capsule twice daily thereafter. 1 kit 2 Active Additional Information Patient not taking.Reported on 03/10/2022 cyclobenzaprine (FLEXERIL) 5 MG tabletIndication s:Intractable migraine without aura and without status migrainosus Take 1 (one) tablet by mouth once daily as needed (Muscle spasms) 30 tablet 5 2 Active Additional Information Patient not taking.Reported on 07/23/2023 Tecfidera 240 MG capsuleIndicatio ns:MS (multiple sclerosis) (HCC) Take 1 (one) capsule by mouth 2 times daily 60 capsule 11 3 Active Additional Information Patient not taking.Reported on 06/07/2023 clindamycin (Cleocin) 1 % lotionIndication s:Other acne Apply to affected areas on face once daily. 30 day supply. 60 mL 3 3 Active onabotulinumtoxi n A (BOTOX) 100 units injectionIndicat ions:Migraine Inject 200 (two hundred) Units into muscle Every 90 days Reasons: Migraine Headache 2 Each 3 3 Active Additional Information Patient not taking.Reported on 06/07/2023 DULoxetine (Cymbalta) 30 MG capsule Take 1 (one) capsule by mouth 2 times daily 60 capsule 13 3 Active acetaminophen (Tylenol) 500 MG tablet Take 2 (two) tablets by mouth Active Linzess 145 MCG capsule 3 Active mupirocin (Bactroban) 2 % ointmentIndicati ons:Wound of skin Apply to affected area three times daily until lesion resolves. 30 ds. 15 g 4 Active Atogepant (Qulipta) 60 MG TABSIndications: Intractable chronic migraine without aura and without status migrainosus Take 1 (one) tablet by mouth once daily 30 tablet 5 4 Active Ajovy 225 MG/1.5ML injectionIndicat ions:Intractable chronic migraine without aura and without status migrainosus INJECT 225 MG SUBCUTANEOUSLY EVERY 30 DAYS 1.5 mL 2 4 Active indomethacin (Indocin) 50 MG capsule Take 1 (one) capsule by mouth 2 times daily 4 Active Kesimpta 20 MG/0.4ML SOAJ Inject 1 mg every month by subcutaneous route. 4 Active 27-1 MG TABS 4 Active tretinoin (Retin-A) 0.025 % creamIndications :Other acne APPLY A PEA SIZED AMOUNT TO ENTIRE FACE AT NIGHT. 45 g 4 4 Active ketoconazole (Nizoral) 2 % shampoo APPLY TO WET HAIR, LEAVE ON FOR THREE MINUTES, THEN RINSE, THREE TIMES WEEKLY. 120 mL 2 5 Active clobetasol (Temovate) 0.05 % solution APPLY TO SCALP DAILY NEEDED FOR ITCHING. 50 mL 2 5 Active ciclopirox (Loprox) 1 % shampooIndicatio ns:Other seborrheic dermatitis WASH AND RINSE TWICE WEEKLY 120 mL 1 5 Active clobetasol (Temovate) 0.05 % solution APPLY TO SCALP DAILY NEEDED FOR ITCHING. 50 mL 2 4 08/29/19 25 Discontinued ciclopirox (Loprox) 1 % shampooIndicatio ns:Other seborrheic dermatitis WASH AND RINSE TWICE WEEKLY 120 mL 1 5 09/14/19 25 Discontinued Active Problems Problem Noted Date Diagnosed Date Thoracic compression fracture 07/27/2023 Overview (09/08/2023): Last Assessment & Plan: Given ongoign pain in the Ts will get updated XR. Chronic migraine with aura w ithout status migrainosus, not intractable 07/12/2023 09/08/2023 Dizziness 03/18/2023 06/07/2023 Shortness of breath 03/18/2023 06/07/2023 Class 1 obesity due to exces s calories without serious comorbidity with body mass index (BMI) of 32.0 to 32.9 in adult 02/19/2023 03/05/2023 Overview (03/05/2023): Last Assessment & Plan: Recommended aggressive Lifestyle modification and weight loss for improving overall weight related health conditions. Follow up in 1 or 3 months for continuing Lifestyle Medicine education and management visit. Recommend Lifestyle Seminar on Wednesdays @ 5pm. Abnormal weight gain 01/07/2023 03/05/2023 Low TSH level 01/07/2023 03/05/2023 Chronic midline low back pain without sciatica 0 10/16/2022 11/20/2022 Overview (11/20/2022): Last Assessment & Plan: Ordered MRI. Added baclofen. Following with neuro as well. Referred to PT. Numbness and tingling of right arm 10/16/2022 11/20/2022 Overview (11/20/2022): Last Assessment & Plan: Possibly related to multiple sclerosis. Given positive tinels and ulnar dist numbness will get EMG. Increase notriptyline. Lumbar spondylosis 10/16/2022 03/05/2023 Overview (03/05/2023): MRI 12/2022 Last Assessment & Plan: Consider MBB but facetogenic pain seems lesser issue - more diffuse sx. Other seborrheic dermatitis 10/09/2022 Other acne 10/09/2022 Neoplasm of uncertain behavior of skin Dysfunction of both eustachian tubes 05/06/2021 Overview (07/23/2021): Last Assessment & Plan: Overall Condition: New Acute Problem Treatment: New Medication: Prednisone Follow up PRN HARMONIC ANALYST demyelination 02/18/2021 Acute vaginitis 02/12/2021 Tonsillitis 01/28/2021 Overview (02/10/2021): Last Assessment & Plan: Overall Condition New Acute Problem. Treatment: New Medication: as prescribed. Follow up in 6 months High risk heterosexual behavior 10/24/2020 03/05/2023 Overview (03/05/2023): High risk heterosexual behavior; Progress: Stable Added By: Stephania Macias Add to Current Problems: NO ProblemStatus: Resolve Acute recurrent pansinusitis 09/30/2020 Overview (10/11/2020): Last Assessment & Plan: Overall Condition Chronic Condition: Uncontrolled. Treatment: New Medication: Recommend Claritin. Flonase and Netipot Follow up PRN Dysuria 09/11/2020 03/05/2023 Overview (03/05/2023): Dysuria; Progress: Stable Added By: Michelle Saleem Add to Current Problems: NO ProblemStatus: Resolve Dysuria; Progress: Stable Added By: Michelle Saleem Add to Current Problems: NO ProblemStatus: Resolve Pain 09/11/2020 03/05/2023 Overview (03/05/2023): Lower abdominal pain, unspecified; Progress: Stable Added By: Michelle Saleem Add to Current Problems: NO ProblemStatus: Resolve Hallucinations 07/20/2020 Encounter for annual health examination 04/17/20 20 Abnormal brain MRI 04/10/2020 Headache 04/10/2020 Overview (06/03/2020): Last Assessment & Plan: Overall Condition: New Acute Problem and unclear diagnosis Treatment: New Medication: T3. Acylovir per hospital recommedation till 04/24. and Referral: neurology Follow up PRN Female genital symptoms 06/06/2017 03/05/20 Overview (03/05/2023): pelvic pain; Location: None Progress: Stable Added By: Yaa Long Add to Current Problems: YES ProblemStatus: Resolve; Start Date : 09/24/2014 Pelvic pain; Location: None Progress: Stable Added By: Maria Esther White Add to Current Problems: YES ProblemStatus: Resolve Pelvic pain; Location: None Progress: Stable Added By: Cynthia Trujillo Add to Current Problems: YES ProblemStatus: Resolve; Start Date : 07/07/2016 pelvic pain; Location: None Progress: Stable Added By: Yaa Long Add to Current Problems: YES ProblemStatus: Resolve; Start Date : 09/24/2014 Pelvic pain; Location: None Progress: Stable Added By: Maria Esther White Add to Current Problems: YES ProblemStatus: Resolve Pelvic pain; Location: None Progress: Stable Added By: Cynthia Trujillo Add to Current Problems: YES ProblemStatus: Resolve; Start Date : 07/07/2016 Abdominal pain 06/06/2017 03/05/2023 Overview (03/05/2023): Abdominal pain, NOS; Location: None Progress: Stable Added By: Maria Esther White Add to Current Problems: YES ProblemStatus: Resolve Abdominal pain, NOS; Location: None Progress: Stable Added By: Maria Esther White Add to Current Problems: YES ProblemStatus: Resolve Pelvic and perineal pain 07/06/2016 023 Overview (03/05/2023): Pelvic and perineal pain; Progress: Stable Added By: Nadeen Elliott Add to Current Problems: NO ProblemStatus: Resolve Pelvic and perineal pain; Progress: Stable Added By: Nadeen Elliott Add to Current Problems: NO ProblemStatus: Resolve Menorrhagia 06/25/2016 03/05/2023 Overview (03/05/2023): Menorrhagia; Location: None Progress: Stable Added By: Navya King Add to Current Problems: YES ProblemStatus: Resolve Menorrhagia; Location: None Progress: Stable Added By: Navya King Add to Current Problems: YES ProblemStatus: Resolve Follicular cyst of ovary 09/24/2014 023 Overview (03/05/2023): Ovarian cyst; Location: None Progress: Stable Added By: Loni Boss Add to Current Problems: YES ProblemStatus: Current Ovarian cyst; Progress: Stable Added By: Loni Boss Add to Current Problems: NO ProblemStatus: Resolve Ovarian cyst; Location: None Progress: Stable Added By: Loni Boss Add to Current Problems: YES ProblemStatus: Current Ovarian cyst; Progress: Stable Added By: Loni Boss Add to Current Problems: NO ProblemStatus: Resolve Presence of subdermal contraceptive implant 05/0503/05/2023 Overview (03/05/2023): Patient with subdermal contraceptive implant (Norplant); Location: None Progress: Stable Added By: Kayla Gonzalez Add to Current Problems: YES ProblemStatus: Resolve Abnormal uterine bleeding 07/30/20132022 Overview (03/05/2023): Abnormal uterine bleeding; Progress: Stable Added By: Eric Maldonado Add to Current Problems: NO ProblemStatus: Resolve Abnormal uterine bleeding; Progress: Stable Added By: Eric Maldonado Add to Current Problems: NO ProblemStatus: Resolve Resolved Problems Problem Noted Date Diagnosed Date Resolved Date Constipation 04/12/2022 08/17/2022 Overview (07/20/2022): Last Assessment & Plan: Acute-started on 17 g of Miralax in 8 oz of beverage of choice daily until BMs are soft and start to lose form, then advised to cut back to every other day or PRN if stools become too loose. Recommended follow-up with PCP if constipation persists, ER if abdominal discomfort worsens, or notices blood in stool, blood with wiping, painful BMs, fever, lethargy, or loss of appetite. Encounters Date Type Department Care Team Description 09/12/2024 Refill [facility] - Dermatology [facility] [facility], [place] [phone] Nga Mccullough MD Refill Request 09/08/2024 1:44 PM MARKETING AUTOMATION MANAGER - 09/08/2024 11:59 PM MARKETING AUTOMATION MANAGER Hospital Encounter [facility] [address] [place] [address] Kelly Stafford MD Discharge Disposition: Home or Self Care 09/08/2024 1:23 PM MARKETING AUTOMATION MANAGER - 09/08/2024 1:43 PM MARKETING AUTOMATION MANAGER Hospital Encounter [facility] - Laboratory [address] [place] [address] Kelly Stafford MD Strzembosz, Andre S, MD Discharge Disposition: Home or Self Care 08/29/2024 Refill [facility] - Dermatology [address] [place] [address], [place] [address] Nga Mccullough MD Refill Request 08/03/2024 Refill [facility] - Dermatology [address] [place] [address], [place] [address] Nga Mccullough MD Refill Request 07/07/2024 Refill [facility] - General Dermatology [address] [facility] [address] [place] [address] Nga Mccullough MD MEDICATION REFILL 07/06/2024 Refill [facility] - Dermatology [address] [place] [address], [place] [address] Nga Mccullough MD Refill Request from Last 3 Months Immunizations Name Administration Dates Next Due DTP HIB, HISTORIC VACCINE 1997 DTaP VACCINE IM (6wk-6yrs) 01/02/2002,12/23/2000 ,04/23/2000 HEP A PEDS 2 DOSE 12/31/2005,04/21/2005 HEP B VACCINE, PED/ADOL 12/23/2000,1997 HIB Hep B 04/23/2000 Human Papilloma Virus Nineva lent Vaccine 08/07/2015 Human Papilloma Virus Emy valent Vaccine 09/03/2014 MENINGOCOCCAL CONJUGATE (MCV4P) 01/08/2014 MMR 01/02/2002,04/23/2000 POLIO IPV 01/02/2002, 1,12/23/2000,04/23,1997 TDAP (7yrs+) 01/09/2019,08/07/2015 VARICELLA 08/07/2015,04/23/2000 Family History Medical History Relation Name Comments Hypertension Paternal Grandmother Glaucoma Neg Hx Macular Degeneration Neg Hx Relation Name Status Comments Paternal Grandmother Social History Tobacco Use Types Packs/Day Years Used Date Smoking Tobacco: Never Smokeless Tobacco: Never Tobacco Cessation:Counseling Given: Not Answered Alcohol Use Standard Drinks/Week Comments No 0 (1 standard drink = 0.6 oz pur e alcohol) AUDIT-C Answer Date Recorded Q1: How often do you have a drink containing alc ohol? Never 08/01/2021 Average Number of Drinks Not on file 022 Frequency of Binge Drinking Not on file 07/06 PHQ-2 Answer Date Recorded PHQ2 TOTAL SCORE 4 09/03/2021 Sex and Gender Information Value Date Recorded Sex Assigned at Not on file Gender Identity Not on file Sexual Orientation Not on file Last Filed Vital Signs Vital Sign Reading Time Taken Comments Blood Pressure 116/80 09/08/2023 1:06 PM MARKETING AUTOMATION MANAGER Pulse 80 09/08/2023 1:06 PM MARKETING AUTOMATION MANAGER Temperature 36.1 C (97 F) 06/07/2023 11:12 AM MARKETING AUTOMATION MANAGER Respiratory Rate 14 08/11/2023 11:57 AM MARKETING AUTOMATION MANAGER Oxygen Saturation 100% 08/11/2023 11:57 AM MARKETING AUTOMATION MANAGER Inhaled Oxygen Concentration - - Weight 80.6 kg (177 lb 9.6 oz) 09/08/2023 1:06 P M MARKETING AUTOMATION MANAGER Height 154.9 cm (5' 1 ) 01/12/2024 12:59 PM CDT Body Mass Index 33.56 09/08/2023 1:06 PM MARKETING AUTOMATION MANAGER Plan of Treatment Upcoming Encounters Date Type Department Care Team (Late st Contact Info) Description 04/20/2025 9:00 AM CDT Office Visit [facility] - Dermatology [address] [place] [address], [place] [phone] Nga Mccullough MD [address] [place] [address] [address] [place] [phone] Health Maintenance Due Date Last Done Comments PAP SMEAR 1997 HPV VACCINE (3 - 3-dose series) 10/30/2015 08/07/2015, 09/03/2014 COVID-19 VACCINE ( season) 2024 INFLUENZA VACCINE (#1) 2024 DEPRESSION SCREENING 07/05/2024 12/08/2021 DTAP/TDAP/TD VACCINES (7 - Td or Tdap) 01/09/2029 01/09/2019, 08/07/2015, 01/02/2002, Additional history exists ZOSTER VACCINE (1 of 2) 2047 HIB VACCINE Completed 04/23/2000, 1997 HEPATITIS B VACCINE Completed 12/23/2000, 04/23/2000, 1997 MENINGOCOCCAL GROUPS A/C/Y/W VACCINE Completed 01/08/2014 HEPATITIS C SCREENING Completed 11/07/2020 HIV SCREENING Completed 11/07/2020, 07/05, 02/28/2014 MENINGOCOCCAL (Group B) VACCINE SHARED DECISION-MAKING Aged Out No longer eligible based on patient's age to complete this topic PNEUMOCOCCAL VACCINE Aged Out No long er eligible based on patient's age to complete this topic Procedures Procedure Name Priority Date/Time Associated Diagnosis Comments FL HYSTEROSALPINGOGRAM Routine 3:11 PM MARKETING AUTOMATION MANAGER Female infertility HCG BLOOD QUALITATIVE STAT 09/08/2024 1:24 PM MARKETING AUTOMATION MANAGER Female infertility HEPATITIS C ANTIBODY Routine 11/07/2020 12:13 PM CDT HARMONIC ANALYST demyelination Encephalitis Need for hepatitis C screening test HIV-1 HIV-2 ANTIGEN/ANTIBODY Routine 11/07/2020 12:13 PM CDT Abnormal brain MRI HARMONIC ANALYST demyelination Encephalitis from Last 3 Months or Most Recently Relevant to Health Maintenance Results * [place] HYSTEROSALPINGOGRAM [id number] (09/08/2024 3:11 PM MARKETING AUTOMATION MANAGER) Anatomical Region Laterality Modality Abdomen, Pelvis Computed Radiogr aphy 09/08/2024 5:06 PM MARKETING AUTOMATION MANAGER Impressions 09/08/2024 5:08 PM MARKETING AUTOMATION MANAGER IMPRESSION: NORMAL HYSTEROSALPINGOGRAM. THERE IS BILATERAL FALLOPIAN TUBE PATENCY. NO ENDOMETRIAL CAVITY CONTOUR ABNORMALITIES ARE SEEN. > Interpreting Provider: Zane Sykes MD on 09/08/2024 5:08 PM Narrative 09/08/2024 5:08 PM MARKETING AUTOMATION MANAGER PROCEDURE: FL HYSTEROSALPINGOGRAM, DATE/TIME OF EXAM: 09/08/2024 3:14 PM, LOCATION [facility] INDICATION: N97.9: Female infertility ADDITIONAL CLINICAL INFORMATION: Ordering Provider Reason For Exam: Technologist Note: Additional: COMPARISON: None. HYSTEROSALPINGOGRAM FLUOROSCOPY DOSE: 12.28 mGy Reference air kerma (ka,r). 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 She states her last menses began about 9 days ago. Serum test this afternoon was negative. TECHNIQUE: The examination was performed by Dr. Sykes. The procedure was explained to Ms. Tejeda, and all of her questions were answered. A time out was performed. With a speculum in place, the vagina and cervix were prepped with a Betadine solution. The balloon tipped catheter was flushed, and then passed through the cervix, into the uterine cavity. 1 cc of air was injected into the balloon catheter and it was gently retracted against the cervix. About 6 cc of Isovue-300 were injected under fluoroscopic monitoring. After bilateral fallopian tube patency was confirmed, images to evaluate the uterine contour were made in different obliquities. The balloon was then deflated and images were made as the catheter was withdrawn. . FLUOROSCOPY DOSE: 1 2.28 mGy Reference air kerma (ka,r). FINDINGS: The uterine cavity is normal. There is no evidence of intraluminal filling defect or mass. Patency of both fallopian tubes is confirmed. I do not see any evidence of hydrosalpinx or obstruction. There is free peritoneal spill, bilaterally. The images were reviewed with the patient, in the examination room, at the completion of the examination. Procedure Note Zane Sykes MD - 09/08/2024 PROCEDURE: FL HYSTEROSALPINGOGRAM, DATE/TIME OF EXAM: 09/08/2024 3:14PM, LOCATION [facility] INDICATION: N97.9: Female infertility ADDITIONAL CLINICAL INFORMATION: Ordering Provider Reason For Exam: Technologist Note: Additional: COMPARISON: None. HYSTEROSALPINGOGRAM FLUOROSCOPY DOSE: 12.28 mGy Reference air kerma (ka,r). 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 She states her last menses began about 9 days ago. Serum test this afternoonwas negative. TECHNIQUE: The examination was performed by Dr. Sykes. Theprocedure was explained to Ms. Tejeda, and all of her questions were answered. Atime out was performed. With a speculum in place, the vagina and cervix were prepped with a Betadine solution. The balloon tipped catheter was flushed, and then passed through the cervix, into the uterine cavity. 1 cc of air was injected into the balloon catheter and it was gently retracted againstthe cervix. About 6 cc of Isovue-300 were injected under fluoroscopic monitoring.After bilateral fallopian tube patency was confirmed, images to evaluate the uterine contour were made in different obliquities. The balloon was then deflated and images were made as the catheter was withdrawn. . FLUOROSCOPY DOSE: 1 2.28 mGy Reference air kerma (ka,r). FINDINGS: The uterine cavity is normal. There is no evidence of intraluminal filling defect or mass. Patency of both fallopian tubes is confirmed. I do not see any evidenceof hydrosalpinx or obstruction. There is free peritoneal spill, bilaterally. The images were reviewed with the patient, in the examination room, atthe completion of the examination. IMPRESSION: NORMAL HYSTEROSALPINGOGRAM. THERE IS BILATERAL FALLOPIANTUBE PATENCY. NO ENDOMETRIAL CAVITY CONTOUR ABNORMALITIES ARE SEEN. > Interpreting Provider: Zane Sykes MD on 09/08/2024 5:08 PM Kelly Stafford MD FLUOROSCOPY ORDERABL ES * HCG BLOOD QUALITATIVE (09/08/2024 1:24 PM MARKETING AUTOMATION MANAGER) HCG Qual Serum Negative Negative 09/08/2024 2:06 PM MARKETING AUTOMATION MANAGER [facility] Blood BLOOD SPECIMEN / Unknown Venipuncture / Unknown 09/08/2024 1:24 PM MARKETING AUTOMATION MANAGER 09/08/2024 1:33 PM MARKETING AUTOMATION MANAGER Zane Sykes MD LAB - CHEMISTRY OR DERABLES [facility] [address] [place], [place] [address] * HIV-1 HIV-2 ANTIGEN/ANTIBODY (11/07/2020 12:13 PM CDT) HIV Antigen/Antibod y 1 & 2 Non-reacti ve Non-react luis e 11/07/2020 2:06 PM CDT [facility] Comment:Neither HIV-1 p24 An tigen nor HIV-1/HIV-2 Antibodies are detected. Blood BLOOD SPECIMEN / Unknown Lab Venipuncture / Unknown 11/07/2020 12:13 PM CDT 11/07/2020 1:18 PM CDT Dustin Espinal MD LAB - HEMATOLOGY ORDERABLES [address] [address], [place] [phone] * HEPATITIS C ANTIBODY (11/07/2020 12:13 PM CDT) Hepatitis C Antibody Non-react luis e Non-reac tive 11/07/2020 2:06 PM CDT [facility] Comment:Hepatitis C Antibody screen indicates no serologic evidence of past or current infection with Hepatitis C Virus. Patients with unexplained liver disease who are immunocompromised or suspected of having acute Hepatitis C infection may benefit from Nucleic Acid Test (KELLI) for Hepatitis C Viral RNA to confirm Hepatitis C status. Blood BLOOD SPECIMEN / Unknown Lab Venipuncture / Unknown 11/07/2020 12:13 PM CDT 11/07/2020 1:18 PM CDT Dustin Espinal MD LAB - CHEMISTRY ORDERABLES [address] [address], [place] [phone] from Last 3 Months or Most Recently Relevant to Health Maintenance Advance Directives * Full Code (Latest Code Status on File) Date Activated Date Inactivated Comments 07/20/2020 7:14 AM 07/21/2020 12:19 PM Care Teams Release And Technical Records Clerk Relationship Specialty Start Date End Date Romeo Mcqueen MD [address] [facility] [address] [place] [address] [place] [phone] PCP - General Family Medicine 11/20/22
--- OUTSIDE RECORDS SUMMARY | 2024-09-23 01:14 | XMS_ITS | Encounter Summary ---
Author Organization [facility] Healthcare Address [address] [place] [address] Care Team Providers Care Emergency Medical Service Manager Name Role Phone Romeo Mcqueen MD Primary Care Provider [phone] Car Romero MD Unavailable [phone] Evans Mota MD Unavailable Nolna Robbins MD Unavailable Encounter Details Date Type Department Care Team (Late st Contact Info) Description 08/25/2024 Results Follow-Up [facility] Gastroenterology at [address] [place] [address] Nabil Newman MD [address] [place] [address] [address] [place] [address] Social History Tobacco Use Types Packs/Day Years Used Date Smoking Tobacco: Never Smokeless Tobacco: Never Alcohol Use Standard Drinks/Week Comments Never 0 (1 standard drink = 0.6 oz pur e alcohol) AUDIT-C Answer Date Recorded Q1: How often do you have a drink containing alcohol? Never 03/08/2024 Q2: How many drinks containi ng alcohol do you have on a typical day when you are drinking? Patient does not drink Q3: How often do you have si x or more drinks on one occasion? Never 03/08/2024 PHQ-2 Answer Date Recorded PHQ-2 Total Score (If total score is 3 or more points, staff should administer the PHQ-9) 0 01/25/2024 Hunger Vital Sign Answer Date Recorded Within the past 12 months, y ou worried that your food would run out before you got the money to buy more. Never true 03/08/20 24 Within the past 12 months, t he food you bought just didn't last and you didn't have money to get more. Never true 03/08/2024 PHQ-9 Answer Date Recorded PHQ-9 Total Score 0 01/25/2024 Personal Safety Answer Date Recorded Have you ever been in or are you currently in a harmful physical or emotional relationship or is someone making you feel afraid or unsafe? 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 Author CCM Chronic Pain Care Plan Chronic Care Management No change(03/08 9:32 AM CDT) No Kelly Fuentes RN Note: Problem: Chronic Pain Goals: 1. Minimize further functional decline 2. Maximize quality of life 3. Control pain Strategies: - Activity/exercise program recommendation - Conservative stepwise pain medicine strategy with multi-disciplinary approach - Recommend healthy lifestyle strategies and compensatory methods as needed documented as of this encounter Visit Diagnoses Not on filedocumented in this encounter Care Teams Emergency Medical Service Manager Relationship Specialty Start Date End Date Romeo Mcqueen MD PCP - General Family Medicine 02/16/22 Car Romero MD [address] [place] [address] Consulting Physician Pain Management 10/17/23 Evans Mota MD [address] [place] [address] Consulting Physician Neurology 01/25/24 Nolan Robbins MD [address] [facility] [address] [place] [address] Consulting Physician Neurology 01/25/24 documented as of this encounter
--- OUTSIDE RECORDS SUMMARY | 2024-09-23 01:14 | XMS_ITS | Encounter Summary ---
Author Organization [facility] Healthcare Address [address] [place] [address] Care Team Providers Care Staff Physical Therapist Name Role Phone Romeo Mcqueen MD Primary Care Provider [phone] Car Romero MD Unavailable [phone] Evans Mota MD Unavailable Nolan Robbins MD Unavailable Encounter Details Date Type Department Care Team (Late st Contact Info) Description 08/24/2024 Results Follow-Up [facility] Medical Group Cardiology [address] [place] [address] Debbie Flores MD [address] [facility] [address], [place] [address] Social History Tobacco Use Types Packs/Day Years [...] on file 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
--- OUTSIDE RECORDS SUMMARY | 2024-09-23 01:14 | XMS_ITS | Clinical Summary ---
Author Organization [facility] Address [address] [place] [address] Care Team Providers Care Seater Grinder Name Role Phone None, Provider MD Primary Care Provider Unavaila ble Allergies No known active allergies Medications acetaminophen CR (ARTHRITIS PAIN) 650 MG Tab CR 8 hr tablet Take 650 mg by mouth as needed. Active QULIPTA tablet 4 Active Ciclopirox 1 % Shampoo 4 Active clindamycin (CLEOCIN T) 1 % lotion Apply 1 Application topically 2 (two) times daily. 3 Active clobetasol (TEMOVATE) 0.05 % external solution APPLY TOPICALLY TO THE AFFECTED AREA DAILY NEEDED FOR DRYNESS OR PAIN 4 Active DULoxetine (CYMBALTA) 30 MG capsule Take 1 capsule (30 mg total) by mouth 2 (two) times daily. 3 Active fluticasone propionate (FLONASE) 50 MCG/ACT nasal spray 2 sprays by Each Nostril route daily. 4 Active AJOVY 225 MG/1.5ML Solution Prefilled Syringe 3 Active indomethacin (INDOCIN) 50 MG capsule 4 Active ketoconazole (NIZORAL) 2 % shampoo 4 Active LINZESS 145 MCG capsule 3 Active loratadine (CLARITIN) 10 MG tablet TAKE 1 TABLET BY MOUTH DAILY NEEDED FOR ALLERGIES 4 Active mupirocin (BACTROBAN) 2 % ointment Apply to affected area see administration instructions. 4 Active trimethoprim-p olymyxin b (POLYTRIM) ophthalmic solution 3 Active tretinoin (RETIN-A) 0.025 % cream APPLY PEA SIZED AMOUNT TOPICALLY TO FACE AT NIGHT 3 Active acetaminophen (TYLENOL) 500 MG tablet Take 2 tablets (1,000 mg total) by mouth every 6 (six) hours as needed. Active Cholecalcifero l (VITAMIN D-3) 25 MCG (1000 UT) Cap Active Active Problems Problem Noted Date Diagnosed Date Headache 04/10/2020 Abnormal brain MRI 04/10/2020 Immunizations Name Administration Dates Next Due Tdap (Boostrix) 01/09/2019 Family History Medical History Relation Comments None Father None Mother Relation Status Comments Father Alive Mother Alive Social History Tobacco Use Types Packs/Day Years Used Date Smoking Tobacco: Never Passive Smoke Exposure: Past Smokeless Tobacco: Never Tobacco Cessation:Counseling Given: Not Answered Alcohol Use Standard Drinks/Week Comments No 0 (1 standard drink = 0.6 oz pur e alcohol) Humiliation, Afraid, Rape, and Kick questionnair e Answer Date Recorded Within the last year, have y ou been afraid of your partner or ex-partner? No 04/11/2020 Within the last year, have y ou been humiliated or emotionally abused in other ways by your partner or ex-partner? No Within the last year, have y ou been kicked, hit, slapped, or otherwise physically hurt by your partner or ex-partner? No 04/11/2020 Within the last year, have y ou been raped or forced to have any kind of sexual activity by your partner or ex-partner? No 04/11/2020 Social Connection and Isolat ion Panel [NHANES] Answer Date Recorded In a typical week, how many times do you talk on the phone with family, friends, or neighbors? More than three times a week 04/11/2020 How often do you get togethe r with friends or relatives? Never 04/11/2020 How often do you attend chur ch or gnosticism services? Never 04/11/2020 Do you belong to any clubs o r organizations such as voodoo groups, unions, fraternal or athletic groups, or school groups? No 04/11/2020 How often do you attend meet ings of the clubs or organizations you belong to? Never 04/11/2020 Are you , , di vorced, , never , or living with a partner? Never 04/11/2020 Overall Financial Resource Strain (CARDIA) Answe r Date Recorded How hard is it for you to pa y for the very basics like food, housing, medical care, and heating? Somewhat hard 04/11/2020 [facility] Answer Date Recorded Do you feel stress - tense, restless, nervous, or anxious, or unable to sleep at night because your mind is troubled all the time - these days? Rather much 04/11/2020 Exercise Vital Sign Answer Date Recorde d On average, how many days pe r week do you engage in moderate to strenuous exercise (like a brisk walk)? 4 days 04/11/2020 On average, how many minutes do you engage in exercise at this level? 10 min 04/11/2020 Hunger Vital Sign Answer Date Recorded Within the past 12 months, y ou worried that your food would run out before you got the money to buy more. Often true Within the past 12 months, t he food you bought just didn't last and you didn't have money to get more. Sometimes true 02/2020 PRAPARE - Transportation Answer Date Re corded In the past 12 months, has l ack of transportation kept you from medical appointments or from getting medications? Yes 02/2020 In the past 12 months, has l ack of transportation kept you from meetings, work, or from getting things needed for daily living? Yes 04/11/2020 Comments No Sex and Gender Information Value Date Recorded Sex Assigned at Female 04/11/2020 12:42 AM CDT Legal Sex Female 6:31 PM CDT Gender Identity Female 04/11/2020 12:42 AM CDT Sexual Orientation Straight 04/11/2020 12 :42 AM CDT Last Filed Vital Signs Vital Sign Reading Time Taken Comments Blood Pressure 108/69 12/28/2023 11:55 AM CDT Pulse 83 12/28/2023 11:55 AM CDT Temperature 36.3 C (97.3 F) 12/28/2023 11:55 AM CDT Respiratory Rate 16 12/28/2023 11:55 AM CDT Oxygen Saturation 98% 12/28/2023 11:55 AM CDT Inhaled Oxygen Concentration - - Weight 77.1 kg (170 lb) 12/28/2023 11:55 AM CDT Height 154.9 cm (5' 1 ) 12/28/2023 11:55 AM CDT Body Mass Index 32.12 12/28/2023 11:55 AM CDT Plan of Treatment Health Maintenance Due Date Last Done Comments Cervical Cancer Screening Pap Smear (Age 21 to 29) Every 3 Years 1997 Cervical Cancer Screening 1997 Annual Physical 2000 Hepatitis C 2015 HPV Vaccines (3 - 3-dose series) 10/30/2015 08/07/2015, 09/03/2014 COVID-19 Vaccine ( season) 2024 Influenza Adult (#1) 2024 DTaP, Tdap and Td Vaccines (6 - Td or Tdap) 01/09/2029 01/09/2019, 08/07/2015, 01/02/2002, Additional history exists Hepatitis B Vaccines Completed 12/23/2000, 04/23/2000, 1997 Meningococcal Vaccine Completed 01/08/2014 Chlamydia Screening Females ages 16-24 Discontinued 12/28/2023, 09/24/2016 Meningococcal B Vaccine Aged Out No l onger eligible based on patient's age to complete this topic Pneumococcal Vaccine: Pediatrics (0 to 5 Years) and At-Risk Patients (6 to 64 Years) Aged Out No longer eligible based on patient's age to complete this topic RSV Immunizations Under 20 Months Aged Out No longer eligible based on patient's age to complete this topic Goals Goal Patient Goal Type Associated Problems Recent Progress Patient-Stated? Author Health - patient able to perform ADLs independently General No Lilli Levy, ADDRESSING MACHINE OPERATOR Procedures Procedure Name Priority Date/Time Associated Diagnosis Comments CHLAMYDIA GC RNA STAT 12/28/2023 12:1 5 PM CDT from Last 3 Months or Most Recently Relevant to Health Maintenance Results * CHLAMYDIA GC RNA (12/28/2023 12:15 PM CDT) SPEC DESCRIPTION VAGINAL SPECIMEN 12/28/2023 2:34 PM CDT [facility] CHLAMYDIA RNA TMA NEGATIVE NEGATIVE 024 12:14 AM CDT [facility] Comment:PERFORMED BY NUCLEIC ACID AMPLIFICATION N.GONORRHOEAE RNA TMA NEGATIVE NEGATIVE 12/30/2023 12:14 AM CDT [facility] Comment:PERFORMED BY NUCLEIC ACID AMPLIFICATION VAGINAL STRUCTURE / Unknown 12/28/2023 12:15 PM CDT Katy Hernandez [facility] - GENERAL VIDYA CASTANEDA Final Result [facility] [address] [place] [address], [facility] [address] [place] [address], [place] [phone] from Last 3 Months or Most Recently Relevant to Health Maintenance Insurance [place] Advance Directives * Full Code (Latest Code Status on File) Date Activated Date Inactivated Comments 04/11/2020 12:24 AM 04/15/2020 9:39 PM Care Teams Seater Grinder Relationship Specialty Start Date End Date None, Provider, PCP - General 04/10/20
--- OUTSIDE RECORDS SUMMARY | 2024-09-23 01:14 | XMS_ITS | Clinical Summary ---
Author Organization [facility] Address [address] [place] [address] Phone Care Team Providers Care Vp Of Marketing Name Role Phone Unavailable Primary Care Provider Unavailabl e Allergies Active Allergy Reactions Criticality Noted Date Comments Glatiramer Acetate Rash Low 02/15/2023 Medications cholecalciferol , Vitamin D3, (Vitamin D3) 50 mcg (2,000 unit) Tablet 08/05/19 21 Active onabotulinumtox Kelley (BOTOX) 200 unit Recon Soln 11/21/19 23 Active Back Brace 1 Units by Other route. 12/19/19 23 Active ketoconazole (NIZORAL) 2 % Shampoo 04/06/20 22 Active clobetasoL (TEMOVATE) 0.05 % Solution 04/06/20 22 Active clindamycin phosphate (CLEOCIN) 1 % Lotion Apply to affected areas on face once daily. 30 day supply. 10/10/19 23 Active ciclopirox (LOPROX) 1 % Shampoo 10/10/19 23 Active acetaminophen (TYLENOL) 500 mg tablet Take 1,000 mg by mouth one time as needed. Active DULoxetine (CYMBALTA) 30 mg Capsule, Delayed Release(E.C.) Take 30 mg by mouth 2 times daily. 04/23/20 23 Active Ajovy Syringe 225 mg/1.5 mL Syringe Inject 225 mg by subcutaneous injection every 30 days. 06/07/20 23 Active fremanezumab-vf rm (Ajovy Autoinjector) 225 mg/1.5 mL Auto-Injector Inject 225 mg by subcutaneous injection every 30 days. 06/07/20 Active linaCLOtide (LINZESS) 145 mcg capsule Take 145 mcg by mouth one time as needed for Pain (Constipation). 05/27/20 Active tretinoin (RETIN-A) 0.025 % Cream Apply to affected area daily. 05/27/20 Active mupirocin (BACTROBAN) 2 % Ointment Apply to affected area see administration instructions. 07/23/19 24 Active Qulipta 60 mg Tablet Take 60 mg by mouth daily. 09/08/19 24 Active indomethacin (INDOCIN) 50 mg capsule Take 50 mg by mouth 2 times daily. 11/17/19 24 Active ofatumumab (Kesimpta Pen) 20 mg/0.4 mL Pen InjectorIndicat ions:Multiple sclerosis, relapsing-remit ting (CMS/HCC) Inject 0.4 mL (20 mg) under the skin once a month 1.2 mL 02/15/20 24 Active walkerIndicatio ns:Multiple sclerosis, relapsing-remit ting (CMS/HCC),Gait abnormality Wheeled walker with seat (I.g. rollator or similar type) 1 Each 02/15/20 24 Active lidocaine (LIDODERM) 5 % Adhesive Patch, Medicated PLACE 1 PATCH ON THE SKIN DAILY REMOVE & DISCARD PATCH WITHIN 12 HOURS OR DIRECTED BY MD. MUST BE PATCH FREE FOR 12 HOURS BEFORE RE-APPLYING NEW PATCH. 02/16/20 24 Active Active Problems Problem Noted Date Diagnosed Date Multiple sclerosis, relapsing-remitting 11/11/19 24 Encounters Date Type Department Care Team Description 09/09/2024 External Device Data STL ABSTRACTION Provider, Abstract 09/08/2024 External Device Data STL ABSTRACTION Provider, Abstract 09/06/2024 External Device Data STL ABSTRACTION Provider, Abstract 08/22/2024 External Device Data STL ABSTRACTION Provider, Abstract 08/14/2024 Telephone [facility] [address] [facility] [address] [place] [address] Nolan Robbins MD Medication Authorization 08/01/2024 External Device Data STL ABSTRACTION Provider, Abstract 07/27/2024 Telephone [facility] [address] [facility] [address] [place] [address] Liliam Duong RN Carter- Jason Adverse Event Report 07/26/2024 External Device Data STL ABSTRACTION Provider, Abstract 07/26/2024 External Device Data STL ABSTRACTION Provider, Abstract 07/24/2024 Telephone [facility] [address] [facility] [address] [place] [address] Nolan Robbins MD Appointment Notification 07/24/2024 Results Follow-Up [facility]rology - [address] [place] [address] Nolan Robbins MD CBC WITH DIFFERENTIAL, DNA AUTOABS DOUBLE STRANDED, SEDIMENTATION RATE 07/10/2024 Telephone [facility] [address] [place] [address] Nolan Robbins MD NEW BLOOD ORDER from Last 3 Months Social History Tobacco Use Types Packs/Day Years Used Date Smoking Tobacco: Never Smokeless Tobacco: Never Tobacco Cessation:Counseling Given: Not Answered Alcohol Use Standard Drinks/Week Comments Never 0 (1 standard drink = 0.6 oz pur e alcohol) Comments Unknown Sex and Gender Information Value Date Recorded Sex Assigned at Not on file Legal Sex Female 12:01 PM CDT Gender Identity Not on file Sexual Orientation Not on file Last Filed Vital Signs Vital Sign Reading Time Taken Comments Blood Pressure 100/74 03/30/2024 9:15 AM CDT Pulse 76 03/30/2024 9:15 AM CDT Temperature - - Respiratory Rate - - Oxygen Saturation 99% 02/15/2023 11: 21 AM CDT Inhaled Oxygen Concentration - - Weight 80.6 kg (177 lb 11.1 oz) 12/24/2023 8:39 AM CDT pt reported Height 154.9 cm (5' 1 ) 12/24/2023 8:39 AM CDT Body Mass Index 33.57 12/24/2023 8:39 AM CDT Plan of Treatment Health Maintenance Due Date Last Done Comments HPV VACCINES (3 - 3-dose series) 10/30/2015 08/07/2015, 08/07/2015, 09/03/2014, Additional history exists PAP SMEAR 2018 INFLUENZA VACCINE (#1) 2024 DTAP/TDAP/TD VACCINES (7 - T d or Tdap) 01/09/2029 01/09/2019, 08/07/2015, 01/02/2002, Additional history exists HEPATITIS B VACCINES Completed 12/23/2000, 12/23/2000, 04/23/2000, Additional history exists Procedures Procedure Name Priority Date/Time Associated Diagnosis Comments SEDIMENTATION RATE Routine 07/21/2024 12 :20 PM HOMICIDE SQUAD COMMANDING OFFICER Rash DNA AUTOABS DOUBLE STRANDED Routine 07/21/2024 12:20 PM HOMICIDE SQUAD COMMANDING OFFICER Rash CBC WITH DIFFERENTIAL Routine 07/21/2024 12:20 PM HOMICIDE SQUAD COMMANDING OFFICER Relapsing-remittin g multiple sclerosis (CMS/HCC) Bruises easily KARLENE SCREEN W/REFLEX Routine 07/21/2024 1 2:20 PM HOMICIDE SQUAD COMMANDING OFFICER Rash from Last 3 Months Results * DNA AUTOABS DOUBLE STRANDED (07/21/2024 12:20 PM HOMICIDE SQUAD COMMANDING OFFICER) Pathologist [facility] DNA AUTOABS DOUBLE STRANDED <1 IU/mL [facility] Comment: IU/mL Interpretation < or = 4 Negative 5-9 Indeterminate > or = 10 Positive Test Performed at: [facility] [address] [place] [address] Rimma Chaparro MD Blood 07/21/2024 12:2 0 PM HOMICIDE SQUAD COMMANDING OFFICER 07/21/2024 12:20 PM HOMICIDE SQUAD COMMANDING OFFICER us Nolan Robbins MD CHEMISTRY ORDERABLES Final Resul t [facility] [phone] [facility] [address] [place] [address] * (ABNORMAL) CBC WITH DIFFERENTIAL (07/21/2024 12:20 PM HOMICIDE SQUAD COMMANDING OFFICER) WBC 8.1 3.8 - 10.8 Thousand/ uL [facility] RBC 4.12 3.80 - 5.10 Million/u L [facility] HEMOGLOBIN 12.2 11.7 - 15.5 g/dL [facility] HEMATOCRIT 37.8 35.0 - 45.0 % [facility] MCV 91.7 80.0 - 100.0 fL [facility] MCH 29.6 27.0 - 33.0 pg [facility] MCHC 32.3 32.0 - 36.0 g/dL [facility] Comment: For adults, a slight decrease in the calculated MCHC value (in the range of 30 to 32 g/dL) is most likely not clinically significant; however, it should be interpreted with caution in correlation with other red cell parameters and the patient's clinical condition. RDW 13.1 11.0 - 15.0 % [facility] PLATELETS 479(H) 140 - 400 Thousand/ uL [facility] MPV 9.5 7.5 - 12.5 fL [facility] NEUTROPHIL ABSOLUTE 5,524 1,500 - 7,800 cells/uL [facility] LYMPHOCYTE ABSOLUTE 1,693 850 - 3,900 cells/uL [facility] MONOCYTE ABSOLUTE 543 200 - 950 cells/uL [facility] EOSINOPHIL ABSOLUTE 267 15 - 500 cells/uL [facility] BASOPHILS ABSOLUTE 73 0 - 200 cells/uL [facility] NEUTROPHIL 68.2 % [facility] LYMPHOCYTES 20.9 % [facility] MONOCYTE 6.7 % [facility] EOSINOPHILS 3.3 % [facility] BASOPHILS 0.9 % [facility] Comment: Test Performed at: [facility] [address] [place] [address] Rimma Mariano Vo Blood 07/21/2024 12:2 0 PM HOMICIDE SQUAD COMMANDING OFFICER 07/21/2024 12:20 PM HOMICIDE SQUAD COMMANDING OFFICER us Nolan Robbins MD HEMATOLOGY ORDERABLES Final Resu lt [facility] [phone] [facility] [place] [address] [place] [address] * SEDIMENTATION RATE (07/21/2024 12:20 PM HOMICIDE SQUAD COMMANDING OFFICER) ESR (SEDIMENTATION RATE) 14 < OR = 20 mm/h [facility] Comment: Test Performed at: [facility] [address] [address] Rimma Chaparro Blood 07/21/2024 12:2 0 PM HOMICIDE SQUAD COMMANDING OFFICER 07/21/2024 12:20 PM HOMICIDE SQUAD COMMANDING OFFICER us Nolan Robbins MD HEMATOLOGY ORDERABLES Final Resu lt [facility] [phone] [place] [address] [place] [address] * (ABNORMAL) KARLENE SCREEN W/REFLEX (07/21/2024 12:20 PM HOMICIDE SQUAD COMMANDING OFFICER) KARLENE SCREEN POSITIVE( A) NEGATIVE [facility] Comment: KARLENE IFA is a first line screen for detecting the presence of up to approximately 150 autoantibodies in various autoimmune diseases. A positive KARLENE IFA result is suggestive of autoimmune disease and reflexes to titer and pattern. Further laboratory testing may be considered if clinically indicated. For additional information, please refer to http://education.HealthLok/faq/XVS531 (This link is being provided for informational/ educational purposes only.) KARLENE TITER 1:80(H) titer [facility] Comment: A low level KARLENE titer may be present in pre-clinical autoimmune diseases and normal individuals. Reference Range <1:40 Negative 1:40-1:80 Low Antibody Level >1:80 Elevated Antibody Level KARLENE PATTERN Cytoplasm ic(A) [facility] Comment: The presence of cytoplasmic fluorescence was noted on the HEp-2 slide. Other reactivities (e.g., anti- mitochondrial antibodies or anti-smooth muscle antibodies) may be responsible for this fluorescence. The clinical significance of this finding is uncertain. Clinical correlation is recommended. AC-15 to AC-23: Cytoplasmic International Consensus on KARLENE Patterns (https://doi.org/10.1515/enfv-3705-3600) Test Performed at: [facility] [address], [place] [address] Rimma Chaparro MD Blood 07/21/2024 12:2 0 PM HOMICIDE SQUAD COMMANDING OFFICER 07/21/2024 12:20 PM HOMICIDE SQUAD COMMANDING OFFICER us Nolan Robbins MD CHEMISTRY ORDERABLES Final Resul t [facility] [phone] [facility] [address] [place] [id number] from Last 3 Months Insurance [facility] MEDICAID
--- OUTSIDE RECORDS SUMMARY | 2024-09-23 01:14 | XMS_ITS | Data Portability ---
Author Organization [facility] [employer] , 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, [address] [place] [address], [address], 09/18/2024 13:36:20 test, urine 2023 024 [email or web address] [facility], [address] [place], [address], 03/27/2024 11:25:57 testoster one, free + total, serum 2023 024 [facility], [address] [place], [address], 02/03/2024 18:13:47 lipid panel, serum 2023 024 [facility], [address] [place], [address], 02/03/2024 18:13:44 hemoglobi n A1c, QN, blood 2023 024 [facility], [address] [place] [address], [address], 02/02/2024 12:16:52 insulin, serum 2023 024 [facility], [address] [place], [address], 02/03/2024 18:13:46 CMP, serum or plasma 2023 [facility], [address] [place], [address], 02/03/2024 18:13:45 bacterial vaginosis + vaginitis panel, vaginal 2023 024 [facility], [address] [place] [address], [address], 02/04/2024 12:33:33 unlisted lab - STD screening ([facility]) 2023 024 [facility], [address] [place] [address], [address], 01/12/2024 13:59:53 bacterial vaginosis + vaginitis panel, vaginal 2023 024 [facility], [address] [place] [address], [address], 01/12/2024 15:53:52 unlisted lab - anti-adrián erian hormone (amh), female 2023 024 [facility], [address] [place], [address], 01/15/2024 02:23:55 prolactin , serum 2023 024 [facility], [address] [place], [address], 01/15/2024 02:23:56 TSH, serum, reflex free T4 2023 024 [facility], [address] [place], [address], 01/12/2024 12:42:24 estradiol , serum 2023 024 [facility], [address] [place], [address], 01/14/2024 13:56:47 lh + FSH, serum 2023 024 [facility], [address] [place], [address], 01/13/2024 11:51:58 progester one, serum 2023 024 [facility], [address] [place], [address], 02/03/2024 18:13:46 Referral None recorded. Procedures None recorded. Surgeries None recorded. Imaging US, transvagi nal 2023 024 [email or web address] Not available 03/29/2024 04:37:18 US, transvagi nal 2023 024 ANNA Not available 01/31/2024 14:33:48 Medication Orders vit 122-irma us fumarate 27 mg iron-foli c acid 800 mcg tablet 2023 024 ezzai - how to [facility], [employer], [address] [facility] [address], [place], [address], 09/18/2024 17:29:23 Patient TargetsNo targets recorded. Patient InstructionsNo instructions recorded. Reason for Referral None Reported. Results Created Date Observation Date Name Description Value Unit Range Abnormal Flag Note LastModifiedBy Organization Detail LastModifiedTime 01/14/20 24 01/14/2024 ESTRA DIOL estradiol 36 pg/mL normal Refer ence Range Folli cular Phase : 19-14 4 Mid-C ycle: 64-35 7 Lutea l Phase : 56-21 4 Postm enopa usal: < or = 31 Refer ence range estab lishe d on post- puber sheyla patie nt popul ation . No pre-p ubert al refer ence range estab lishe d using this assay . For any patie nts for whom low Estra diol level s are antic ipate d (e.g. males , pre-p ubert al child chris and hypog onada l/pos t-men opaus al femal es), the [facility] Estra diol, Ultra sensi tive, LCMSM S assay is recom gaurav d (orde r code 39315 ). Eduardo lima note: patie nts being treat ed with the drug fulve stran t (Fasl odex( R)) have demon strat ed signi fican t inter feren ce in immun oassa y metho ds for estra diol measu remen t. The cross react ivity could lead to false ly eleva tiny estra diol test resul ts leadi ng to an inapp ropri ate clini francisca asses sment of estro gen statu s. [facility] order code [id number] -Estr adiol , Ultra sensi tive LC/MS /MS demon strat es negli gible cross react ivity with fulve stran t. NO COLLE CTION DATE RECEI YESIKA. WE HAVE USED THE DATE THE SPECI MEN WAS RECEI YESIKA BY THIS LABOR ATORY THE COLLE CTION DATE. IF THIS IS INCOR RECT, PLEBUDDY [place] CONTA CT CLIEN T SERVI WILLIAMS. PHONE NUMBE R: [phone] Not Available [facility] [address] [address], [place], [address], 01/14/2024 13:56:47 01/11/20 24 01/12/2024 TSH W/ REFLE X TO FREE, T4 TSH 0.68 mIU/L 0.55 - 4.78 normal Refer ence Range Femal e aged 18-Ad ult: 0.55- 4.78 Pregn jossy Refer ence Range s First Trime ster 0.26- 2.66 Secon d Trime ster 0.55- 2.73 Third Trime ster 0.43- 2.91 Not Available [address], [address], 01/12/2024 12:42:24 01/11/20 24 01/12/2024 STD SCREE RICARDO ([facility] ) hep BS Ag Non-Re active non-re active normal Not Available [address], [address], 01/12/2024 13:59:53 01/11/20 24 01/12/2024 STD SCREE RICARDO ([facility] ) hep C Ab Non-Re active non-re active normal Not Available [address], [address], 01/12/2024 13:59:53 01/11/20 24 01/12/2024 STD SCREE RICARDO ([facility] ) HIV 1/2 Ag/Ab Non-Re active non-re active normal Not Available [address], [address], 01/12/2024 13:59:53 01/11/20 24 01/12/2024 STD SCREE RICARDO ([facility] ) syphilis Ab Non-Re active non-re active normal Not Available [address], [address], 01/12/2024 13:59:53 01/11/20 24 01/12/2024 VAGIN ITIS PLUS STD PANEL bacterial vaginosis BV POS negati ve abnormal Not Available [address], [address], 01/12/2024 15:53:52 01/11/20 24 01/12/2024 VAGIN ITIS PLUS STD PANEL kulwinder species C. spp neg negati ve normal Not Available [address], [address], 01/12/2024 15:53:52 01/11/20 24 01/12/2024 VAGIN ITIS PLUS STD PANEL kulwinder glabrata C. gla neg negati ve normal Not Available [facility] [address] [place] [address], [address], 01/12/2024 15:53:52 01/11/20 24 01/12/2024 VAGIN ITIS PLUS STD PANEL trichomonas vaginalis CV/TV TRICH neg negati ve normal Not Available [address], [address], 01/12/2024 15:53:52 01/11/20 24 01/12/2024 VAGIN ITIS PLUS STD PANEL chlamydia trachomatis CT neg negati ve normal This repor t is inten ded for us in clini francisca monit oring and manag ement of patie nts. It is not inten ded for use in medic al-le gal appli catio n. Not Available [address], [address], 01/12/2024 15:53:52 01/11/20 24 01/12/2024 VAGIN ITIS PLUS STD PANEL neisseria gonorrhoeae GC neg negati ve normal This repor t is inten ded for us in clini francisca monit oring and manag ement of patie nts. It is not inten ded for use in medic al-le gal appli catio n. Not Available [address], [address], 01/12/2024 15:53:52 01/11/20 24 01/13/2024 FSH AND LH FSH 6.5 mIU/m L Refer ence Range s are for femal es aged 18 years - Adult Mariana l Menst ruati ng Femal e: Folli cular phase : 2.5-1 0.2 mIU/m L Mid-C ycle Peak: 3.4-3 3.4 mIU/m L Lutea l phase : 1.5-9 .1 mIU/m L Pregn ant: <0.3 mIU/m L Post- menop ausal : 23.0- 116.6 mIU/m L Not Available [address], [address], 01/13/2024 11:51:58 01/11/20 24 01/13/2024 FSH AND LH LH 15.40 U/L Refer ence Range s are for femal es aged 18 years - Adult Mariana l Menst ruati ng Femal e: Folli cular phase : 1.9-1 2.5 mIU/m L Mid-C ycle Peak: 8.7-7 6.3 mIU/m L Lutea l phase : 0.5-1 6.9 mIU/m L Pregn ant: <0.1- 1.5 mIU/m L Post- menop ausal : 15.9- 54.0 mIU/m L Contr acept julissa: 0.7-5 .6 mIU/m L Not Available [address], [address], 01/13/2024 11:51:58 01/11/20 24 01/15/2024 ANTI- MULLE LUPE HORMO NE (AMH) , FEMAL E anti-mulleri an hormone (amh), female 8.88 NG/mL 0.69-1 3.39 Not Available [facility] [address] [place], [address], 01/15/2024 02:23:55 01/11/20 24 01/15/2024 PROLA CTIN prolactin 7.0 NG/mL normal Refer ence Range Femal es Non-p regna nt 3.0-3 0.0 Pregn ant 10.0- 209.0 Postm enopa usal 2.0-2 0.0 Not Available [facility] [address] [place], [address], 01/15/2024 02:23:56 01/31/20 24 02/02/2024 HEMOG LOBIN A1C hemoglobin A1C 4.8 % <5.7 normal The refer ence range for HbA1c is indic ated in the table below . Sugge sted Diagn osis =6.5% Consi stent with diabe ritu 5.7 6.4% Consi stent with incre ased risk for diabe ritu (pred iabet ic) <5.7% Consi stent with the absen ce of diabe ritu Not Available [facility] [address] [place], [address], 02/02/2024 12:16:52 01/31/20 24 02/03/2024 LIPID PANEL , STAND GILMA cholesterol, total 234 mg/dL <200 high Not Available [place] [address] [place], [address], 02/03/2024 18:13:44 01/31/20 24 02/03/2024 LIPID PANEL , STAND GILMA HDL cholesterol 50 mg/dL > or = 50 normal Not Available [place] [address] [place], [address], 02/03/2024 18:13:44 01/31/20 24 02/03/2024 LIPID PANEL , STAND GILMA triglyceride s 60 mg/dL <150 normal Not Available [facility] [place] [address] [place], [address], 02/03/2024 18:13:44 01/31/20 24 02/03/2024 LIPID PANEL , STAND GILMA LDL-choleste rol 169 mg/dL _(francisca c) high Refer ence range : <100 Cristobal able range <100 mg/dL for prima ry preve ntion ; <70 mg/dL for patie nts with CHD or diabe tic patie nts with > or = 2 CHD risk facto rs. LDL-C is now calcu lated using the Joselyn n-Hop kins justinu jeanine n, which is a valid ated novel ramana kat than the Fried giuliana equat ion in the estim ation of LDL-C . Joselyn feldman SS et al. PATEL. 2013; 310(1 9): 2061- 2068 (http ://ed ucati on.Qu estDi mirthaos tics. com/f aq/FA Q164) Not Available [facility] [address] [place], [address], 02/03/2024 18:13:44 01/31/20 24 02/03/2024 LIPID PANEL , STAND GILMA chol/HDLC ratio 4.7 (calc ) <5.0 normal Not Available [address], [address], 02/03/2024 18:13:44 01/31/20 24 02/03/2024 LIPID PANEL , STAND GILMA non HDL cholesterol 184 mg/dL _(francisca c) <130 high For patie nts with diabe ritu plus 1 major ASCVD risk facto r, treat ing to a non-H DL-C goal of <100 mg/dL (LDL- C of <70 mg/dL ) is candy ly optio n. Not Available [address], [address], 02/03/2024 18:13:44 01/31/20 24 02/03/2024 COMPR EHENS ALEXUS METAB OLIC PANEL glucose 74 mg/dL 65-99 normal Fasti ng refer ence inter josé antonio Not Available [address], [address], 02/03/2024 18:13:45 01/31/20 24 02/03/2024 COMPR EHENS ALEXUS METAB OLIC PANEL urea nitrogen (BUN) 8 mg/dL 7-25 normal Not Available [address], [address], 02/03/2024 18:13:45 01/31/20 24 02/03/2024 COMPR EHENS ALEXUS METAB OLIC PANEL creatinine 0.70 mg/dL 0.50-0 .96 normal Not Available [address], [address], 02/03/2024 18:13:45 01/31/20 24 02/03/2024 COMPR EHENS ALEXUS METAB OLIC PANEL eGFR 122 mL/mi n/1.7 3m2 > or = 60 normal Not Available [address], [address], 02/03/2024 18:13:45 01/31/20 24 02/03/2024 COMPR EHENS ALEXUS METAB OLIC PANEL BUN/creatini ne ratio SEE NOTE: (calc ) 6-22 Not Repor tiny: BUN and Creat inine are withi n refer ence range . Not Available [address], [address], 02/03/2024 18:13:45 01/31/20 24 02/03/2024 COMPR EHENS ALEXUS METAB OLIC PANEL sodium 138 mmol/ L 135-14 6 normal Not Available [address], [address], 02/03/2024 18:13:45 01/31/20 24 02/03/2024 COMPR EHENS ALEXUS METAB OLIC PANEL potassium 4.0 mmol/ L 3.5-5. 3 normal Not Available [address], [address], 02/03/2024 18:13:45 01/31/20 24 02/03/2024 COMPR EHENS ALEXUS METAB OLIC PANEL chloride 103 mmol/ L 98-110 normal Not Available [address], [address], 02/03/2024 18:13:45 01/31/20 24 02/03/2024 COMPR EHENS ALEXUS METAB OLIC PANEL carbon dioxide 25 mmol/ L 20-32 normal Not Available [address], [address], 02/03/2024 18:13:45 01/31/20 24 02/03/2024 COMPR EHENS ALEXUS METAB OLIC PANEL calcium 9.8 mg/dL 8.6-10 .2 normal Not Available [address], [address], 02/03/2024 18:13:45 01/31/20 24 02/03/2024 COMPR EHENS ALEXUS METAB OLIC PANEL protein, total 8.1 g/dL 6.1-8. 1 normal Not Available [address], [address], 02/03/2024 18:13:45 01/31/20 24 02/03/2024 COMPR EHENS ALEXUS METAB OLIC PANEL albumin 4.5 g/dL 3.6-5. 1 normal Not Available [address], [address], 02/03/2024 18:13:45 01/31/20 24 02/03/2024 COMPR EHENS ALEXUS METAB OLIC PANEL globulin 3.6 g/dL_ (calc ) 1.9-3. 7 normal Not Available [address], [address], 02/03/2024 18:13:45 01/31/20 24 02/03/2024 COMPR EHENS ALEXUS METAB OLIC PANEL albumin/glob ulin ratio 1.3 (calc ) 1.0-2. 5 normal Not Available [address], [address], 02/03/2024 18:13:45 01/31/20 24 02/03/2024 COMPR EHENS ALEXUS METAB OLIC PANEL bilirubin, total 0.4 mg/dL 0.2-1. 2 normal Not Available [address], [address], 02/03/2024 18:13:45 01/31/20 24 02/03/2024 COMPR EHENS ALEXUS METAB OLIC PANEL alkaline phosphatase 59 U/L 31-125 normal Not Available [address], [address], 02/03/2024 18:13:45 01/31/20 24 02/03/2024 COMPR EHENS ALEXUS METAB OLIC PANEL AST 18 U/L 10-30 normal Not Available [facility] [address], [address], 02/03/2024 18:13:45 01/31/20 24 02/03/2024 COMPR EHENS ALEXUS METAB OLIC PANEL ALT 13 U/L 6-29 normal Not Available [address], [address], 02/03/2024 18:13:45 01/31/20 24 02/03/2024 INSUL IN insulin 6.9 uIU/m L normal Refer ence Range < or = 18.4 Risk: Optim al < or = 18.4 Moder ate NA High >18.4 Adult cardi ovasc ular event risk categ ory cut point s (opti mal, moder ate, high) are based on Insul in Refer ence Inter josé antonio studi es perfo rmed at [facility] in 2021. Not Available [facility] [address], [address], 02/03/2024 18:13:45 01/31/20 24 02/03/2024 PROGE STERO NE progesterone 0.9 NG/mL normal Refer ence Range s Femal e Folli cular Phase < 1.0 Lutea l Phase 2.6-2 1.5 Post menop ausal < 0.5 Pregn jossy 1st Trime ster 4.1-3 4.0 2nd Trime ster 24.0- 76.0 3rd Trime ster 52.0- 302.0 Not Available [facility] [address], [address], 02/03/2024 18:13:46 01/31/2002/03/2024 TESTO STERO NE, FREE (DIAL YSIS) AND TOTAL ,MS testosterone , total, MS 60 NG/dL 2-45 high For addit ional infor eduardo marcial e refer to https ://ed ucati on.qu estdi DiaDerm[employer] BVs. com/f aq/FA Q165 (This link is being provi ded for infor matio nal/e ducat ional purpo ses only. ) (Note ) This test was devel oped and its rodrigo tical perfo rmanc e bryan cteri stics have been deter mined by [employer]. It has not been clear ed or appro yesika by the FDA. This assay has been valid ated pursu ant to the CLIA regul ation s and is used for clini francisca purpo ses. Not Available [facility] [address] [place], [address], 02/03/2024 18:13:46 01/31/20 24 02/03/2024 TESTO STERO NE, FREE (DIAL YSIS) AND TOTAL ,MS testosterone , free 7.1 pg/mL 0.1-6. 4 high (Note ) This test was devel oped and its rodrigo tical perfo rmanc e bryan cteri stics have been deter mined by [employer]. It has not been clear ed or appro yesika by the FDA. This assay has been valid ated pursu ant to the CLIA regul ation s and is used for clini francisca purpo ses. MDF med fusio n [address] [facility] [address] [facility] [address] [phone] Obed Hatfield MD, PhD Not Available [facility] [address] [place], [address], 02/03/2024 18:13:46 01/31/20 24 02/04/2024 VAGIN ITIS PLUS STD PANEL bacterial vaginosis BV neg negati ve normal Not Available [facility] [address] [place], [address], 02/04/2024 12:33:33 01/31/20 24 02/04/2024 VAGIN ITIS PLUS STD PANEL kulwinder species C. spp neg negati ve normal Not Available [facility] [address] [place], [address], 02/04/2024 12:33:33 01/31/20 24 02/04/2024 VAGIN ITIS PLUS STD PANEL kulwinder glabrata C. gla neg negati ve normal Not Available [address], [address], 02/04/2024 12:33:33 01/31/20 24 02/04/2024 VAGIN ITIS PLUS STD PANEL trichomonas vaginalis CV/TV TRICH neg negati ve normal Not Available [address], [address], 02/04/2024 12:33:33 01/31/20 24 02/04/2024 VAGIN ITIS PLUS STD PANEL chlamydia trachomatis CT neg negati ve normal This repor t is inten ded for us in clini francisca monit oring and manag ement of patie nts. It is not inten ded for use in medic al-le gal appli catio n. Not Available [address], [address], 02/04/2024 12:33:33 01/31/20 24 02/04/2024 VAGIN ITIS PLUS STD PANEL neisseria gonorrhoeae GC neg negati ve normal This repor t is inten ded for us in clini francisca monit oring and manag ement of patie nts. It is not inten ded for use in medic al-le gal appli catio n. Not Available [address], [address], 02/04/2024 12:33:33 03/27/20 24 03/27/2024 pregn jossy test, urine HCG negati ve Not Available [facility] [address] [place], [address], 03/27/2024 10:54:00 07/27/19 25 07/28/2024 SURES WAB(R ) ADVAN LIBORIO VAGIN ITIS PLUS, TMA sureswab(R) adv bacterial vaginosis (bv), tma POSITI VE negati ve abnormal Not Available [facility] [place] [address] [place], [address], 07/28/2024 18:24:50 07/27/19 25 07/28/2024 SURES WAB(R ) ADVAN LIBORIO VAGIN ITIS PLUS, TMA kulwinder species NOT DETECT ED not detect ed normal Not Available [facility] [place] [address] [address] [place], [address], 07/28/2024 18:24:50 07/27/19 25 07/28/2024 SURES WAB(R ) ADVAN LIBORIO VAGIN ITIS PLUS, TMA kulwinder glabrata NOT DETECT ED not detect ed normal Opal da speci es C. albic ans, C. tropi calis , C. parap debby is, and/o r C. dubli niens is can be detec tiny, but not diffe renti ated, in the Opal da spp. resul t. Not Available [facility] [address] [address] [place], [address], 07/28/2024 18:24:50 07/27/19 25 07/28/2024 SURES WAB(R ) ADVAN LIBORIO VAGIN ITIS PLUS, TMA trichomonas vaginalis (TV), tma NOT DETECT ED not detect ed normal Not Available [facility] [address] [address] [place], [address], 07/28/2024 18:24:50 07/27/19 25 07/28/2024 SURES WAB(R ) ADVAN LIBORIO VAGIN ITIS PLUS, TMA chlamydia trachomatis RNA, tma, urogenital NOT DETECT ED not detect ed normal Not Available [facility] [address] [address] [place], [address], 07/28/2024 18:24:50 07/27/19 25 07/28/2024 SURES WAB(R ) ADVAN LIBORIO VAGIN ITIS PLUS, TMA neisseria gonorrhoeae RNA, tma, urogenital NOT DETECT ED not detect ed normal For addit ional infor eduardo marcial refer to https ://ed ucati on.qu irineomacarena mirthaSafeShot Technologies. com/f aq/FA Q154 (This link is being provi ded for infor bladimir feldman/ damion hopkins purpo ses only. ) Not Available [facility] [address] [address], [place], [address], 07/28/2024 18:24:50 01/31/20 24 01/31/2024 US, trans vagin al No observ ation record ed. [email or web address] [facility] [address], [place], [address], 01/31/2024 15:13:31 03/27/20 24 03/27/2024 US, trans vagin al No observ ation record ed. [email or web address] [facility] [address], [place], [address], 03/27/2024 13:55:06 09/09/19 25 09/08/2024 XR, hyste hali pingo gram No observ ation record ed. [email or web address] [facility] [address] [facility], [place], [address], 09/10/2024 10:42:35 Result Notes None recorded. Problems Name Problem SNOMED Code Status Onset Date Resolution Date Notes Provider Name and Address Organization Details Recorded Time Syphilis test finding [id number] Completed 201508/25/2016 Encounte r for screenin g for infectio ns with a predomin antly sexual mode of transmis liane; Severity : Moderate Progress : Stable Added By: Navya King Add to Current Problems : NO ProblemS tatus: Resolve Tahmina tipton ON LICENSE OF [facility] IV 4 09:15:51 Abnormal uterine bleeding [id number] 100 Completed 201305/02/2014 Abnormal uterine bleeding ; Progress : Stable Added By: Eric Maldonado Add to Current Problems : NO ProblemS tatus: Resolve Not Available [facility] 2 21:03:14 Pain Completed 202002/12/2021 Lower abdomina l pain, unspecif ied; Progress : Stable Added By: Michelle Saleem Add to Current Problems : NO ProblemS tatus: Resolve Not Available [facility] 2 21:03:15 Sampling of vagina for Papanico laou smear Completed 201902/12/2021 Encounte r for gynecolo gical examinat ion (general ) (routine ) without abnormal findings ; Progress : Stable Added By: Katja Arrington Add to Current Problems : NO ProblemS tatus: Resolve Not Available [facility] 2 21:03:15 Dysfunct ional uterine bleeding Completed 201609/05/2016 Dysfunct ional uterine bleeding ; Progress : Stable Added By: Kayla Cotto Add to Current Problems : NO ProblemS tatus: Resolve DUB; Location : None Progress : Stable Added By: Liliam Ramirez Add to Current Problems : YES ProblemS tatus: Resolve; Start Date : 09/25/19 15 DUB; Location : None Progress : Stable Added By: Loni Boss Add to Current Problems : YES ProblemS tatus: Resolve; Start Date : 07/23/19 15 Not Available [facility] 2 21:03:15 Female genital organ symptoms [id number] Completed 201603/09/2018 pelvic pain; Location : None Progress : Stable Added By: Yaa Garber Add to Current Problems : YES ProblemS tatus: Resolve; Start Date : 09/25/19 15 Pelvi c pain; Location : None Progress : Stable Added By: Maria Esther Stubbs Add to Current Problems : YES ProblemS tatus: Resolve Pelvic pain; Location : None Progress : Stable Added By: Cynthia Espitia Add to Current Problems : YES ProblemS tatus: Resolve; Start Date : 07/07/19 17 Not Available [facility] 2 21:03:14 Menorrha harjinder [id number] Completed 201508/25/2016 Menorrha harjinder; Location : None Progress : Stable Added By: Navya King Add to Current Problems : YES ProblemS tatus: Resolve Not Available [facility] 2 21:25:11 Oral contrace ptive prescrib ed Completed 201412/28/2014 Initiati on of control pills; Location : None Progress : Stable Added By: Yaa Garber Add to Current Problems : YES ProblemS tatus: Resolve Not Available [facility] 2 21:03:16 Follicul ar cyst of ovary [id number] Completed 201403/08/2020 Ovarian cyst; Location : None Progress : Stable Added By: Loni Boss Add to Current Problems : YES ProblemS tatus: Current Ovarian cyst; Progress : Stable Added By: Loni Boss Add to Current Problems : NO ProblemS tatus: Resolve Not Available [facility] 2 21:03:16 Subcutan eous contrace ptive implant present [id number] Completed 201307/23/2014 Patient with subderma l contrace ptive implant (Norplan t); Location : None Progress : Stable Added By: Kayla Aguilar Add to Current Problems : YES ProblemS tatus: Resolve Not Available [facility] 2 21:03:14 Dysuria [id number] Completed 202002/12/2021 Dysuria; Progress : Stable Added By: Michelle Saleem Add to Current Problems : NO ProblemS tatus: Resolve Not Available [facility] 2 21:03:13 Abdomina l pain [id number] Completed 201603/09/2018 Abdomina l pain, NOS; Location : None Progress : Stable Added By: Maria Esther Stbubs Add to Current Problems : YES ProblemS tatus: Resolve Not Available [facility] 2 21:03:16 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 behavior [id number] 9101 Completed 202002/12/2021 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 behavior ; Progress : Stable Added By: Sada Macias Add to Current Problems : NO ProblemS tatus: Resolve Not Available [facility] 2 21:03:13 Injectio n given [id number] Completed 201309/24/2014 Follow-u p visit for Depo Provera injectio n; Location : None Severity : Moderate Progress : Stable Added By: Aydee Muro Add to Current Problems : NO ProblemS tatus: Resolve Not Available [facility] 19:09:54 At high risk of sexually transmit tiny infectio n [id number] Completed 201508/25/2016 STD Screenin g; Severity : Moderate Progress : Stable Added By: Navya King Add to Current Problems : NO ProblemS tatus: Resolve Not Available [facility] [facility]54 Finding of regulari ty of menstrua l cycle Completed 201609/05/2016 Irregula r menstrua tion, unspecif ied; Progress : Stable Added By: Kayla Cotto Add to Current Problems : NO ProblemS tatus: Resolve Not Available [facility] 2 21:03:[address] Concept Completed 202002/12/2021 Encounte r for follow-u p examinat ion after complete d treatmen t for conditio ns other than malignan t neoplasm ; Progress : Stable Added By: Sada Macias Add to Current Problems : NO ProblemS tatus: Resolve Not Available [facility] 2 21:03:15 Family planning educatio n done [id number] Completed 201307/14/2014 Family planning advice; Location : None Severity : Moderate Progress : Stable Added By: Navya King Add to Current Problems : YES ProblemS tatus: Resolve Not Available [facility] 19:09:55 Acute vaginiti s [id number] Completed 201607/15/2021 Acute vaginiti s; Severity : Moderate Progress : Stable Added By: Marcin Galarza Add to Current Problems : YES ProblemS tatus: Current Bacteria l vaginosi s; Location : None Severity : Moderate Progress : Stable Added By: Nicci Dee Add to Current Problems : YES ProblemS tatus: Resolve Tahmina tipton [facility] 4 09:15:48 Pelvic and perineal pain [id number] Completed 201602/12/2021 Pelvic and perineal pain; Progress : Stable Added By: Nadeen Elliott Add to Current Problems : NO ProblemS tatus: Resolve Not Available [facility] 2 21:03:16 Endocrin e/met[place] lic screenin g Completed 201609/05/2016 Encounte r for screenin g for other suspecte d endocrin e disorder ; Progress : Stable Added By: Kayla Cotto Add to Current Problems : NO ProblemS tatus: Resolve Not Available [facility] 2 21:03:14 Syphilis test finding [id number] Completed 202012/28/2023 Encounte r for screenin g for infectio ns with a predomin antly sexual mode of transmis liane; Progress : Stable Added By: Sada Macias Add to Current Problems : YES ProblemS tatus: Current STD Screenin g; Location : None Progress : Stable Added By: Navya King Add to Current Problems : YES ProblemS tatus: Resolve; Start Date : 06/26/20 16 Tahmina Britsch null, [place] [facility] 4 09:15:51 Family planning surveill ance Completed 201309/24/2014 Follow-u p visit for Depo Provera injectio n; Location : None Progress : Stable Added By: Aydee Muro Add to Current Problems : NO ProblemS tatus: Resolve Not Available [facility] 2 21:03:14 Acute vaginiti s 16479485 Completed 202012/28/2023 Acute vaginiti s; Progress : Stable Added By: Marcin Galarza Add to Current Problems : YES ProblemS tatus: Current Bacteria l vaginosi s; Location : None Progress : Stable Added By: Nicci Dee Add to Current Problems : YES ProblemS tatus: Resolve; Start Date : 06/10/20 17 Tahmina Britsch null[place] [facility] 4 09:15:48 Finding of fertilit y Completed 202012/28/2023 Female infertil ity, unspecif ied; Progress : Stable Added By: Nadeen Elliott Add to Current Problems : YES ProblemS tatus: Current Tahmina Britsch null, [place] [facility] 4 09:15:45 Screenin g for malignan t neoplasm of cervix Completed 201902/12/2021 Encounte r for screenin g for malignan t neoplasm of cervix; Progress : Stable Added By: Katja Arrington Add to Current Problems : NO ProblemS tatus: Resolve Not Available [facility] 2 21:25:11 Problem Notes None recorded. Procedures Surgical History Date Name Laterality Status Provider Name and Address Organization Details Recorded Time 06/10/2022 Date of Last Pap Smear completed Elisabet Le [facility] 12/17/2022 09:59:36 Imaging Results Imaging Date Name Status LastModified by Organization Details LastModified Time 01/31/2024 US, transvaginal completed [email or web address] [address], [place], [address], 01/31/2024 15:13:31 03/27/2024 US, transvaginal completed [email or web address] [address], [place], [address], 03/27/2024 13:55:06 09/08/2024 XR, hysterosalpingogram completed [email or web address] [address] [facility], [place], [address], 09/10/2024 10:42:35 Procedure Notes None recorded. Medical Equipment None Reported. Allergies No known drug allergies Medications Name Sig Start Date Stop Date Status Note LastModified by Organization Details LastModified Time celecoxib 200 mg capsule TAKE 1 CAPSULE BY MOUTH TWICE DAILY 06/10 completed Not Available Not Available Not Available cyclobenz aprine 10 mg tablet 07/16 completed Not Available Not Available Not Available gabapenti n 600 mg tablet 06/10 completed Not Available Not Available Not Available naproxen 375 mg tablet TAKE 1 TABLET BY MOUTH TWICE DAILY 03/23 completed Not Available Not Available Not Available ketoconaz ole 2 % shampoo active Not Available Not Available Not Available ibuprofen 800 mg tablet Take 1 tablet(s ) by mouth q 8hrs as needed 11/23 completed Ibuprofe n 800mg Tablet RxNorm: 436521 Allow Substitu tion: True Refill Denied: No For Problem: Ovarian cyst Not Available Not Available Not Available fluconazo le 150 mg tablet 01/10 completed Not Available Not Available Not Available sumatript an 100 mg tablet 02/24 completed Not Available Not Available Not Available tretinoin 0.025 % topical cream APPLY PEA SIZED AMOUNT TOPICALL Y TO FACE AT NIGHT active Not Available Not Available No t Available prednison e 20 mg tablet 06/10 completed Not Available Not Available Not Available metronida zole 500 mg tablet take 1 tablet (500 mg) by oral route 2 times per day 2024 active Not Available Not Available Not Avai lable phentermi ne 37.5 mg tablet 02/24 completed Not Available Not Available Not Available tramadol 50 mg tablet 1 p.o. q4-6h PRN 11/23 completed Tramadol 50mg Tablet RxNorm: 983273 Allow Substitu tion: True Refill Denied: No For Problem: Ovarian cyst Not Available Not Available Not Available acetamino phen 500 mg tablet TAKE ONE TABLET BY MOUTH EVERY 4 HOURS NEEDED FOR PAIN OR FEVER 06/10 completed Not Available Not Available Not Available nortripty line 25 mg capsule TAKE 1 CAPSULE BY MOUTH AT BEDTIME 03/23 completed Not Available Not Available Not Available amoxicill in 875 mg tablet 01/10 completed Not Available Not Available Not Available Depo-Prov era 150 mg/mL intramusc ular suspensio n 1 injectio n IM q3mos. Please fill and bring to office prior to appt. 09/24 completed Depo-Pro vera 150mg/1m l Injectio n RxNorm: 3557438 Allow Substitu tion: True Refill Denied: No For Problem: Family planning advice Not Available Not Available Not Available baclofen 10 mg tablet 02/24 completed Not Available Not Available Not Available nortripty line 75 mg capsule 02/24 completed Not Available Not Available Not Available cephalexi n 500 mg capsule 12/17 completed Not Available Not Available Not Available polymyxin B sulfate 10,000 unit-trim ethoprim 1 mg/mL eye drops 03/23 completed Not Available Not Available Not Available ibuprofen 400 mg tablet TAKE 1 TABLET BY MOUTH THREE TIMES DAILY FOR 10 DAYS NEEDED FOR FEVER OR PAIN 06/10 completed Not Available Not Available Not Available indometha stefano 50 mg capsule active Not Available Not Available Not Available gabapenti n 300 mg capsule TAKE 1 CAPSULE BY MOUTH THREE TIMES DAILY. START AT 300 MG AT NIGHT THEN GRADUALL Y OVER A WEEK. INCREASE TO 3 TIMES A DAY 06/10 completed Not Available Not Available Not Available estradiol 2 mg tablet 1 po at hs 01/07 completed Estradio l 2mg Tablet RxNorm: 781172 Allow Substitu tion: True Refill Denied: No For Problem: Abnormal uterine bleeding Not Available Not Available Not Available ibuprofen 600 mg tablet TAKE ONE TABLET BY MOUTH EVERY 6 HOURS NEEDED FOR PAIN 06/10 completed Not Available Not Available Not Available polyethyl garcia glycol 3350 17 gram/dose oral powder DISSOLVE 17 GRAM IN LIQUID AND DRINK DAILY NEEDED FOR CONSTIPA TION 02/28 completed Not Available Not Available Not Available propranol ol 20 mg tablet 01/10 completed Not Available Not Available Not Available clobetaso l 0.05 % scalp solution APPLY TOPICALL Y TO THE AFFECTED AREA DAILY NEEDED FOR DRYNESS OR PAIN active Not Available Not Available No t Available fluticaso ne propionat e 50 mcg/actua tion nasal spray,adonay pension SHAKE LIQUID AND USE 2 SPRAYS IN EACH NOSTRIL DAILY active Not Available Not Available No t Available itraconaz ole 100 mg capsule TAKE 2 CAPSULES BY MOUTH DAILY WITH FOOD FOR 14 DAYS 02/24 completed Not Available Not Available Not Available loratadin e 10 mg tablet TAKE 1 TABLET BY MOUTH DAILY NEEDED FOR ALLERGIE S active Not Available Not Available No t Available nortripty line 50 mg capsule TAKE 1 CAPSULE BY MOUTH AT BEDTIME 02/24 completed Not Available Not Available Not Available Topamax 15 mg sprinkle capsule take 1 capsule (15 mg) by oral route 2 times per day in the morning and evening 02/12 completed Topamax 15 mg oral Capsule, Sprinkle RxNorm: 454509 Allow Substitu tion: False Refill Denied: No Refill DateOccu rred: 09/13/19 21 Edited by: Marcin Figueroa ) on 02/13/20 Stopped by: shania lemos(Marcin Murphy ) on 02/13/20 Not Available Not Available Not Available clindamyc in 1 % lotion APPLY TOPICALL Y TO THE AFFECTED AREA OF FACE EVERY DAY 09/21 completed Not Available Not Available Not Available Bactrim DS 800 mg-160 mg tablet take 1 tablet by oral route every 12 hours for 5 days 09/20 completed Bactrim DS 800-160 mg oral tablet RxNorm: 181178 Allow Substitu tion: True Refill Denied: No Edited by: Katja Gardner ) on 09/21/19 Stopped by: Katja Gardner ) on 09/21/19 Not Available Not Available Not Available Sprintec (28) 0.25 mg-0.035 mg tablet one po daily, may substitu te for an equivale nt pill as insuranc e dictates 02/19 completed Sprintec 35mcg/0. 25mg Tablet Allow Substitu tion: True Refill Denied: No For Problem: Ovarian cyst Not Available Not Available Not Available cyclobenz aprine 5 mg tablet TAKE 1 TABLET BY MOUTH EVERY DAY NEEDED FOR MUSCLE SPASMS 02/24 completed Not Available Not Available Not Available ciclopiro x 1 % shampoo 02/28 completed Not Available Not Available Not Available topiramat e 50 mg tablet TAKE 1 TABLET BY MOUTH TWICE DAILY 07/16 completed Not Available Not Available Not Available duloxetin e 30 mg capsule,d elayed release active Not Available Not Available Not Available pregabali n 50 mg capsule 02/24 completed Not Available Not Available Not Available ferrous sulfate 06/26 completed Ferrous Sulfate Allow Substitu tion: True Refill Denied: No Refill DateOccu rred: 09/25/19 15 Not Available Not Available Not Available Vitamin D active Not Available Not Rosalinda ilable Not Available Tylenol active Not Available Not Avail able Not Available nortripty line 07/15 completed Nortript yline Refill Denied: No Refill DateOccu rred: 02/13/20 Edited by: Kerline Figueroayne ) on 02/13/20 21 Stopped by: [email or web address](Knuckl es, Taryne ) on Not Available Not Available Not Available Nexplanon 07/23 completed Nexplano n Allow Substitu tion: True Refill Denied: No Refill DateOccu rred: 07/31/19 14 Not Available Not Available Not Available Linzess 145 mcg capsule active Not Available Not Available Not Available Tecfidera 120 mg (14)-240 mg (46) capsule,d elayed release 06/10 completed Not Available Not Available Not Available Tecfidera 240 mg capsule,d elayed release 09/21 completed Not Available Not Available Not Available glatirame r 40 mg/mL subcutane ous syringe 06/10 completed Not Available Not Available Not Available vit 122-irma us fumarate 27 mg iron-foli c acid 800 mcg tablet Take 1 tablet every day by oral route. 2023 active Not Available Not Available Not Avai lable Ajovy Syringe 225 mg/1.5 mL subcutane ous 01/10 completed Not Available Not Available Not Available Nurtec ODT 75 mg disintegr ating tablet 02/24 completed Not Available Not Available Not Available Kesimpta Pen 20 mg/0.4 mL subcutane ous pen injector Inject 1 mg every month by subcutan eous route. active Not Available Not Available No t Available Qulipta 60 mg tablet active Not Available Not Available Not Available Vitals Date Recorded Body height Body mass index (BMI) Body weight Systolic blood pressure Diastolic blood pressure Provider Name and Address Organization Details Last Updated DateTime 01/11/2024 165.1 cm 29.3 kg/m2 01060.2 6 g 122 mm[Hg] 80 mm[Hg] Jeri Aguayo [employer] [facility] 4 10:41:35 Date Recorded Body height Body mass index (BMI) Body weight Systolic blood pressure Diastolic blood pressure Provider Name and Address Organization Details Last Updated DateTime 01/31/2024 165.1 cm 29.3 kg/m2 15157.2 6 g 90 mm[Hg] 48 mm[Hg] Jeri Aguayo [employer] [facility] 4 11:13:56 Date Recorded Body height Body mass index (BMI) Body weight Systolic blood pressure Diastolic blood pressure Provider Name and Address Organization Details Last Updated DateTime 02/29/2024 165.1 cm 29.9 kg/m2 62147.91 g 100 mm[Hg] 60 mm[Hg] Hua Hope [facility] [employer] [facility] 4 12:28:58 Date Recorded Body height Body mass index (BMI) Body weight Systolic blood pressure Diastolic blood pressure Provider Name and Address Organization Details Last Updated DateTime 03/27/2024 165.1 cm 30.5 kg/m2 26511.4 g 98 mm[Hg] 50 mm[Hg] Jeri Olivier [facility] [employer] [facility] 4 10:51:55 Date Recorded Body height Body mass index (BMI) Body weight Systolic blood pressure Diastolic blood pressure Provider Name and Address Organization Details Last Updated DateTime 07/27/2024 165.1 cm 31.7 kg/m2 71936.27 g 106 mm[Hg] 62 mm[Hg] Stephanie Prosper [facility] [employer] [facility] 5 11:47:03 Social History Question Answer Notes LastModified by Organizat ion Details LastModified Time Tobacco Smoking Status Never [facility] [employer] 06/10/2022 16:13:41 What Is Your Level Of Alcohol Consumption? None [email or web address] Information not available 06/10/2022 Are You Blind Or Do You Have Difficulty Seeing? No [email or web address] Information not available 06/10/2022 Are You Currently Employed? No Information not available 05/19/2023 Are You Deaf Or Do You Have Serious Difficulty Hearing? No [email or web address] Information not available 06/10/2022 What Type Of Diet Are You Following? VEGAN [email or web address] Information not available 06/10/2022 Do You Or Have You Ever Used E-cigarettes Or Vape? Never Used Electronic Cigarettes [email or web address] Information not available 06/10/2022 What Is The Highest Grade Or Level Of School You Have Completed Or The Highest Degree You Have Received? [id number] [email or web address] Information not available 05/19/2023 How Many Children Do You Have? 0 Information not available 12/28/2023 What Is Your Relationship Status? Single Information not available 07/15/2021 Are You Sexually Active? Yes Information not available 07/15/2021 Do You Use Any Illicit Or Recreational Drugs? No [email or web address] Information not available 06/10/2022 Do You Or Have You Ever Used Any Other Forms Of Tobacco Or Nicotine? No Information not available 12/28/2023 Sex: Female Functional Status Question Answer Note LastModified by Organizat ion Details LastModified Time What is your exercise level? Occasional Information not available 06/10/2022 Mental Status None recorded. Family History Relationship Description Onset Age of this Age Resolved Age Notes LastModified by Organization Details LastModified Time Father No current problems or disability [email or web address] Not available 05/2022 22:47:45 Mother No current problems or disability [email or web address] Not available 05/2022 22:47:45 Medical History Condition Response Anemia Y Multiple Sclerosis Y Headaches/migraines Y Gynecological History Statement/Question Response Flow Moderate Date of last HPV 06/10/2022 Date of LMP 07/03/2024 HPV Vaccine N Duration of Flow (days) 5 Most Recent Mammogram Current Control Method None Age at Menarche 13 Date of Last Colonoscopy Most Recent Bone Density Date of Last Pap Smear 06/10/2022 Obstetrics History GPAL:G 0 P 0 0 0 0 Past Encounters Encounter ID Performer Location Encounter Start Date Encounter Closed Date Diagnosis/Indication Diagnosis SNOMED-CT Code Diagnosis ICD10 Code Diagnosis Note [id number] Hugo Dee DO [facility] [address] [place] [address] 07/16/2021 13:46:45 07/21/2021 13:35:49 Dysmenorrhea 178145387 N94.6 observatio n/ menstrual diary Secondary dysmenorrhea 08922920 N94.5 [id number] Liliam Alvarenga CNM [facility] [address] [place] [address] 06/10/2022 15:57:12 06/11/2022 10:24:04 Gynecologic examination 94192533 Z01.419 Patient wishes to conceive. Recommende d talking to doctor she sees for her MS prior. Daily vitamins. Depression screening 171 083030 Z13.31 [id number] MARYSE ARAGON, [facility] [address] [place] [address] 12/17/2022 14:38:09 12/17/2022 17:19:46 Missed period 12591715 N92.5 Abnormal u terine bleeding 4116825192 9100 N93.9 Screening for disorder 247991581 Z11.3 N89.9 Trying to conceive 37610 9001 Z31.9 -- Pt is Trying to Conceive. Education given.-- Reviewed normal fecundity, peak fertility around time of ovulation, and monitoring menses. -- She is not tracking her menses, she will start tracking.- - Discussed intercours e during ovulation Q other day.-- Recommende d starting PNV.-- Discussed following up within 2-4 weeks of first pos UPT and in 1 year if pt has not had positive UPT. [id number] Liliam Alvarenga CNM [facility] [address] [place] [address] 02/24/2023 12:47:41 02/26/2023 13:48:22 Pain in pelvis 37401297 R10.2 Urine dip/UPT negative today. Followup for TVUS. Keep appointmen t as scheduled with GI. Miralax for constipati on detection examination 77145047 Z32.00 [id number] Liliam Alvarenga CNM [facility] [address] [place] [address] 03/23/2023 11:04:20 03/24/2023 11:41:02 Pain in pelvis 66267136 R10.2 Reviewed ultrasound findings. Small free fluid- discussed most likely represents ruptured cyst. Pain is improving. Has GI visit scheduled. [id number] DAISHA JO [facility] [address] [place] [address] 05/19/2023 10:56:42 05/19/2023 15:16:14 Venereal disease screening 075014785 Z11.3 Pt educated on importance of condom use for protection against STD's. Samples collected and sent. Further POC pending lab result review. Pt states understand ing of POC. [id number] ELIZABETH RPUETT [facility] h [address] [place] [address] 09/22/2023 10:40:45 09/22/2023 15:47:59 Gynecologic examination 29131362 Z01.419 Screening for malignant neoplasm of cervix 793211714 Z12.4 ASCCP guidelines reviewed with patient. No pap collected today. Pt states understand ing and is amenable to POC. Screening for malignant neoplasm of breast 836334518 Z12.39 Pt educated on breast cancer screening guidelines . Denies any concerns with breast at this time. Denies any lumps, bumps, nipple discharge or unusual soreness. Pt states understand ing of POC. Venereal d isease screening 966680320 Z11.3 Conduct a full panel STD test, including tests for BV, yeast, gonorrhea, chlamydia, trichomona s, HIV, syphilis, hepatitis B, and hepatitis C. Inform the patient of the results as soon as they are available. Depression screening 171 602393 Z13.31 PHQ9: 0. Pt educated on normal scoring, and discussed depression precaution s and when to notify HCP/go to ER. Unprotecte d sexual intercourse 9667120 Z72.51 LMP 09/19/2023 Assess the impact of stress and environmen sheyla factors on the patient's menstrual cycle. If the patient's period is more than 90 days late, further investigat ion and workup will be necessary. Dyspareunia 73701125 N94 .10 Address the potential overuse issue and recommend reducing the frequency of intercours e to alleviate discomfort . Monitor the patient's symptoms and provide further evaluation if necessary. [id number] ELIZABETH BANKSDAISHA John [facility] h [address] [place] [address] 01/11/2024 10:27:28 01/11/2024 12:39:59 Reproductive care management 962608527 Z31.81 Pt is Trying to Conceive. Education given.--Kahlil early has been TTC since July 2022, has not had any +UPT--Has been tracking cycles, but has not been tracking ovulation. -- Reviewed normal fecundity, peak fertility around time of ovulation, and monitoring menses.-- Pt reports menses come every month, but is varying if it will be in the beginning or end of the month and last around 5 days.-- Discussed intercours e during ovulation Q other day.-- Recommende d starting PNV.-- Lab work today, will RTC for day 3 of cycle blood work, day 21 of cycle blood work and TVUS. PA case sent for TVUS for irregular cycle. Greater than thirty minutes spent with patient in consultati on (>50% face-to-fa ce). Patient labs and notes were reviewed. Patient questions were answered. Additional patient care was coordinate d. Venereal d isease screening 276425353 Z11.3 Conduct a full panel STD test, including tests for BV, yeast, gonorrhea, chlamydia, trichomona s, HIV, syphilis, hepatitis B, and hepatitis C. Inform the patient of the results as soon as they are available. [id number] DAISHA JO [facility] [address] [place] [address] 01/31/2024 10:26:16 01/31/2024 11:52:49 Reproductive care management 244674972 Z31.81 Pt is Trying to Conceive. Education given.--Kahlil early has been TTC since July 2022, has not had any +UPT--Has been tracking cycles, but has not been tracking ovulation. -- Reviewed normal fecundity, peak fertility around time of ovulation, and monitoring menses.-- Pt reports menses come every month, but is varying if it will be in the beginning or end of the month and last around 5 days.-- Discussed intercours e during ovulation Q other day.-- Recommende d starting PNV.-- TVUS today shows multiple peripheral follicles in right ovary, right ovarian cyst measuring 2.38x2.05x 1.09, small mount of FF seen in CDS.--21 day progestero ne today along with PCOS work up.--Pt denies any pain today. Will RTC in 8 weeks for repeat US.--POC pending results. Irregular periods 666483 07 N92.6 -Will do PCOS work up today Acute vaginitis 07982838 N76.0 [id number] Kelly Stafford MD [facility] [address] [place] [address] 02/29/2024 11:43:32 02/29/2024 14:03:03 Infertility study 05440665 Z31.41 Discussed HSG, Tracking period, Taking vitamin, Referral to [facility] for preconcept ion counseling due to patient's medical comorbidit ies. We discussed ovulation predictor kits and how to track periods. 30 minutes spent reviewing history, counseling and documentat ion of today's patient visit. Preconcept ion consultation 0198239718 Z31.69 [id number] DAISHA JO [address] [address] 03/27/2024 10:03:42 03/27/2024 13:06:39 Cyst of right ovary [id number] 6211734 N83.201 -Last US 01/31/2024 right ovarian simple cyst measuring 2.05 at greatest diameter.- I have reviewed TVUS today and discussed with patient. TVUS today shows: Uterus and ovaries WNL, previous cyst no longer visualized . Antral follicular count right ovary 32<10, left ovary 35<10 Missed period 48872000 N 92.6 LMP: 02/15/2024W aiting for cycle so that she can get HSG completed. -I discussed with patient possible causes of amenorrhea including , thyroid issues, increased stress, anovulatio n, PCOS, increased prolactin. -UPT negative today in office.-Wi ll continue to track cycles, has a repeat appointmen t with MFM on 03/30/2024 due to being sick at last visit. MFM note mentioned referral to [facility].-Pt will call scheduling when she starts her cycle for HSG.-RTC PRN or next WWE [id number] Kelly Stafford MD [facility] [address] [place] [address] 07/27/2024 11:27:13 07/27/2024 12:42:40 Vaginal discharge 731624787 N89.8 Pt educated on exam findings, and discussed POC. Vaginal cx collected and sent. Discussed use of boric acid suppositor ies to help alleviate symptoms. Pt advised to avoid fragrant soaps/laun dry detergents , use of baking soda soaks, having partner change soaps, etc. Further POC pending lab result review. The patient was initially evaluated by DAISHA Jo, who completed the history examinatio n, and preliminar y assessment . I, Kelly Stafford MD, entered the room to review and discuss the care plan with the patient. After reviewing the specific findings and documentat ion provided by Elizabeth, I confirmed the diagnosis and care plan, addressing any additional concerns or questions raised by the patient. The final plan of care was developed collaborluanne felder and has been documented accordingl y. Venereal d isease screening 583146172 Z11.3 Pt educated on importance of condom use for protection against STD's. Samples collected and sent. Further POC pending lab result review. Pt states understand ing of POC. Infertility study [id number] [id number] Z31.41 Discussed HSG, Tracking period, Taking vitamin, MFM telemed scheduled early aug. will call to schedule HSG with first day of next menses. Health Concerns Section Related Observation LastModified by Organization Detai ls LastModified Time None Recorded Concern Status LastModified by Organization Details LastModified Time None Recorded Advance Directives Directive None Recorded Payers Encounter Date Sequence Insurance Name Policy Number Policy Ornelas Covered Member ID Ornelas Member ID Guarantor Name 01/11/2024 1 [facility] ON OR AFTER 01/02/21 (MEDICAID REPLACEMENT - HMO) Alexsander Tejeda [id number] Alexsander Tejeda 01/31/2024 1 [facility] ON OR AFTER 01/02/21 (MEDICAID REPLACEMENT - HMO) Alexsander Tejeda [id number] Alexsander Tejeda 02/29/2024 1 [facility] ON OR AFTER 01/02/21 (MEDICAID REPLACEMENT - HMO) Alexsander Tejeda [id number] Alexsander Tejeda 03/27/2024 1 [facility] ON OR AFTER 01/02/21 (MEDICAID REPLACEMENT - HMO) Alexsander Tejeda [id number] Alexsander Tejeda 07/27/2024 1 [facility] ON OR AFTER 01/02/21 (MEDICAID REPLACEMENT - HMO) Alexsander Tejeda [id number] Alexsander Tejeda Notes Date Note Type Note Provider Name and Address Organization Details Recorded Time 01/11/2024 text/html Patient is here today because she has been trying for over a year to get . She just wants to assure that everything is okay, she also requests STD screening both swab and serum today. DAISHA JO Formerly [facility], [facility] [place], [address], [facility] [employer] IV 01/11/2024 12:34:47 01/31/2024 text/html Patient is here for a follow up on her US for infertility, she had labs at last visit and is supposed to do labs tomorrow as well due to missing a appt. I advised patient I would follow up on this and they may be drawn today if possible. Patient would like to be re tested for BV to assure it is all cleared up. Patient also very fatigue, tired, weak this morning and dizzy when sitting up. Her B/P runs 120/80's usually and is very low at 90/48 today. DAISHA JO Formerly [facility], [facility] [place], [address], [facility] [employer] IV 01/31/2024 11:41:20 02/29/2024 text/html Alexsander 28 y/o G0 is here to discuss ovulation medication. She had seen Elizabeth on 01/31/24 for trying to conceive. She had day 21 progesterone drawn on 01/30 and resulted .9 indicating she didn't ovulate. She reports she has been actively trying for about 1 yr. She reports normal, monthly cycles. She has no other concerns. Kelly Stafford MD [address] [place] [address], [address], [facility] [employer] IV 03/03/2024 11:54:15 03/27/2024 text/html Pt presents for ovarian cyst follow up. Pt denies any pelvic pain for the last 5 days . Patient is not interested in HMB to help control ovarian cyst due to seeking . Pt is questioning if she may be has had no cycle since February 14. LMP: 02/15/24. DAISHA JO Formerly [facility], [facility] [place], [address], [facility] [employer] IV 03/27/2024 11:26:05 07/27/2024 text/html Alexsander 29 y/o here with c/o vaginal discharge whitish in color and foul odor , states better now but would like checked out, denies any pelvic pain or irregular periods, LMP 07/03/2024, Last pap 06/2022. Patient also has questions concerning getting her HSG scheduled. States she talked with her MS specialist and they told her it is ok to stay on medication until 2nd trimester. Patient states she is not sure she ovulated last cycle, but has been tracking cycles. Patient has also been working on lifestyle changes and has gotten her weight down some. States periods have improved. Kelly Stafford MD Former[facility], [facility], [place], [address], [facility] [employer] IV 07/27/2024 14:50:17 OBGyn Episode No OBEpisode recorded.
--- OUTSIDE RECORDS SUMMARY | 2024-09-23 01:14 | XMS_ITS | Data Portability ---
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 Plan of Treatment Reminders Order Date Submit Date Provider Last Modified By Organization Details Last Modified Time Details Appointments None recorded. Lab None recorded. Referral None recorded. Procedures None recorded. Surgeries None recorded. Imaging None recorded. Medication Orders azelastine 137 mcg (0.1 %) nasal spray 2023 [employer], [address], [address], [place], [address], 4 12:56:44 montelukast 10 mg tablet 2023 [employer], [address], [address], [place], [address], 5 17:29:23 Patient TargetsNo targets recorded. Patient InstructionsNo instructions recorded. Reason for Referral None Reported. Medical Equipment None Reported. Allergies No known drug allergies Medications Name Sig Start Date Stop Date Status Note LastModified by Organization Details LastModified Time celecoxib 200 mg capsule TAKE 1 CAPSULE BY MOUTH TWICE DAILY active Not Available Not Available No t Available naproxen 375 mg tablet active Not Available Not Available No t Available ketoconazole 2 % shampoo active Not Available Not Available Not Available fluconazole 150 mg tablet active Not Available Not Available Not Available sumatriptan 100 mg tablet active Not Available Not Available Not Available tretinoin 0.025 % topical cream APPLY PEA SIZED AMOUNT TOPICALLY TO FACE AT NIGHT active Not Available Not Available No t Available metronidazol e 500 mg tablet TAKE 1 TABLET BY MOUTH TWICE DAILY active Not Available Not Available No t Available phentermine 37.5 mg tablet active Not Available Not Available Not Available nortriptylin e 25 mg capsule active Not Available Not Available Not Available amoxicillin 875 mg tablet active Not Available Not Available Not Available baclofen 10 mg tablet active Not Available Not Available No t Available nortriptylin e 75 mg capsule active Not Available Not Available Not Available lidocaine 5 % topical patch active Not Available Not Available Not Available polymyxin B sulfate 10,000 unit-trimeth oprim 1 mg/mL eye drops active Not Available Not Available Not Available ibuprofen 400 mg tablet TAKE 1 TABLET BY MOUTH THREE TIMES DAILY FOR 10 DAYS NEEDED FOR FEVER OR PAIN active Not Available Not Available No t Available indomethacin 50 mg capsule active Not Available Not Available Not Available montelukast 10 mg tablet TAKE 1 TABLET BY MOUTH EVERY DAY 2024 active Not Available Not Available Not Avai lable bisacodyl 5 mg tablet,delay ed release TAKE 2 TABLETS BY MOUTH DAILY DIRECTED active Not Available Not Available Not Available azelastine 137 mcg (0.1 %) nasal spray INSTILL 2 SPRAYS BY INTRANASAL ROUTE EVERY DAY 2024 active Not Available Not Available Not Avai lable polyethylene glycol 3350 17 gram/dose oral powder DISSOLVE 17 GRAM IN LIQUID AND DRINK DAILY NEEDED FOR CONSTIPATIO N active Not Available Not Available No t Available propranolol 20 mg tablet active Not Available Not Available Not Available clobetasol 0.05 % scalp solution APPLY TOPICALLY TO THE AFFECTED AREA DAILY NEEDED FOR DRYNESS OR PAIN active Not Available Not Available No t Available fluticasone propionate 50 mcg/actuatio n nasal spray,suspen liane SHAKE LIQUID AND USE 2 SPRAYS IN EACH NOSTRIL DAILY active Not Available Not Available No t Available itraconazole 100 mg capsule TAKE 2 CAPSULES BY MOUTH DAILY WITH FOOD FOR 14 DAYS active Not Available Not Available Not Available loratadine 10 mg tablet TAKE 1 TABLET BY MOUTH DAILY NEEDED FOR ALLERGIES active Not Available Not Available No t Available nortriptylin e 50 mg capsule TAKE 1 CAPSULE BY MOUTH AT BEDTIME active Not Available Not Available No t Available clindamycin 1 % lotion APPLY TOPICALLY TO THE AFFECTED AREA OF FACE EVERY DAY active Not Available Not Available No t Available cyclobenzapr ine 5 mg tablet TAKE 1 TABLET BY MOUTH EVERY DAY NEEDED FOR MUSCLE SPASMS active Not Available Not Available No t Available ciclopirox 1 % shampoo active Not Available Not Available No t Available duloxetine 30 mg capsule,octaviano yed release active Not Available Not Available Not Available pregabalin 50 mg capsule active Not Available Not Available Not Available cholecalcife rol (vitamin D3) 1,250 mcg (50,000 unit) capsule TAKE ONE CAPSULE BY MOUTH ONCE WEEKLY active Not Available Not Available No t Available FeroSul 325 mg (65 mg iron) tablet TAKE 1 TABLET BY MOUTH TWICE DAILY active Not Available Not Available No t Available Linzess 145 mcg capsule active Not Available Not Available Not Available Tecfidera 240 mg capsule,octaviano yed release active Not Available Not Available Not Available Vitamins Plus Low Iron 27 mg iron-1 mg tablet active Not Available Not Available Not Available Ajovy Syringe 225 mg/1.5 mL subcutaneous active Not Available Not Available Not Available [facility] mg disintegrati ng tablet active Not Available Not Available No t Available Ajovy 225 mg/1.5 mL subcutaneous auto-injecto r active Not Available Not Available Not Available Kesimpta Pen 20 mg/0.4 mL subcutaneous pen injector active Not Available Not Available Not Available Qulipta 60 mg tablet active Not Available Not Available No t Available Vitals Date Recorded Body height Body mass index (BMI) Body weight Heart rate Oxygen saturation Oxygen saturation in Arterial blood by Pulse oximetry Body temperature Systolic blood pressure Diastolic blood pressure Provider Name and Address Organization Details Last Updated DateTime 9 157.48 cm 28.3 kg/m2 37917.8 2 g 79 /min 99 % 99 % 98.7 [degF] 116 mm[Hg] 78 mm[Hg] Danna Hernadez [facility] 9 14:55:31 Date Recorded Heart rate Respiratory rate Systolic blood pressure Diastolic blood pressure Provider Name and Address Organization Details Last Updated DateTime 03/02/2023 57 /min 18 /min 115 mm[Hg] 75 mm[Hg] Jorge George LPN [facility] 03/02/2023 10:48:34 Date Recorded Body weight Body temperature Pain severity - 0-10 verbal numeric rating [Score] - Reported Heart rate Systolic blood pressure Diastolic blood pressure Provider Name and Address Organization Details Last Updated DateTime 4 60982.3 7 g 98 [degF] 0 80 /min 122 mm[Hg] 72 mm[Hg] Brandon Toussaint [place] - [facility] 4 12:30:04 Social History Question Answer Notes LastModified by Organizat ion Details LastModified Time Tobacco Smoking Status Never Smoker Danna [place], [place] - [facility] 07/21/2018 14:55:39 What Was The Date Of Your Most Recent Tobacco Screening? 07/21/2018 Information n ot available 01/26/2019 Sex: Unknown Functional Status None recorded. Mental Status None recorded. Family History Nothing Reported. Medical History No medical history recorded. Gynecological HistoryNo gynecological history recorded. Obstetrics History GPAL:G 0 P 0 0 0 0 Immunizations Vaccine Type Date Status Note Provider Nam e and Address Organization Details Recorded Time DTaP, unspecified formulation 8 completed KARY [place], [place] [facility] 11/08/2018 10:49:04 DTaP, unspecified formulation 0 [place] [facility] 11/08/2018 10:49:10 DTaP, unspecified formulation 1 [place] [facility] 11/08/2018 10:49:16 DTaP, unspecified formulation 2 completed [place] [facility] 11/08/2018 10:49:20 Hib, unspecified formulation 8 completed [place] [facility] 11/08/2018 10:49:32 Hib, unspecified formulation 0 completed [place] [facility] 11/08/2018 10:49:39 Hep A, unspecified formulation 5 completed [place] [facility] 11/08/2018 10:49:54 Hep A, unspecified formulation 6 completed [place] [facility] 11/08/2018 10:49:58 Hep B, unspecified formulation 8 completed [place] [facility] 11/08/2018 10:50:44 Hep B, unspecified formulation 0 completed [place] [facility] 11/08/2018 10:50:50 Hep B, unspecified formulation 1 completed [place] [facility] 11/08/2018 10:50:57 HPV, unspecified formulation 5 completed [place] [facility] 11/08/2018 10:51:12 HPV, unspecified formulation 6 completed [place] [facility] 11/08/2018 10:51:16 MMR 0 completed [place] [facility] 11/08/2018 10:51:27 MMR 2 completed [place] [facility] 11/08/2018 10:51:44 meningococcal ACWY, unspecified formulation 4 completed [place] [facility] 11/08/2018 10:51:55 polio, unspecified formulation 8 completed [place] [facility] 11/08/2018 10:52:06 polio, unspecified formulation 0 completed [place] [facility] 11/08/2018 10:52:10 polio, unspecified formulation 1 completed [place] [facility] 11/08/2018 10:52:18 polio, unspecified formulation 1 completed [place] [facility] 11/08/2018 10:52:23 polio, unspecified formulation 2 completed [place] [facility] 11/08/2018 10:52:32 Tdap 6 completed [place] [facility] 11/08/2018 10:52:43 varicella 0 completed [place] [facility] 11/08/2018 10:52:55 varicella 6 completed [place] [facility] 11/08/2018 10:53:00 Past Encounters Encounter ID Performer Location Encounter Start Date Encounter Closed Date Diagnosis/Indication Diagnosis SNOMED-CT Code Diagnosis ICD10 Code Diagnosis Note [id number] Maribell 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 no restrictio ns indicated. denies asthma, heart disease and sickle cell. [id number] Martin Fowler MD [facility] [address] [place] [address] 03/02/2023 10:32:09 03/03/2023 14:56:42 Temporomandibular joint disorder 97466943 M26.609 soft diet Amygdalolith 8370442 J35 .8 use Waterpik to clear follow back if she has further difficulti es [id number] Martin Fowler MD [facility] [address] [place] [address] 04/24/2024 12:22:27 04/24/2024 12:39:29 Chronic rhinitis 46318721 J31.0 follow back that is not improving continue Flonase and antihistam lizeth Health Concerns Section Related Observation LastModified by Organization Detai ls LastModified Time None Recorded Concern Status LastModified by Organization Details LastModified Time None Recorded Advance Directives Directive None Recorded Payers Encounter Date Sequence Insurance Name Policy Number Policy Ornelas Covered Member ID Ornelas Member ID Guarantor Name 07/21/2018 1 [facility] PRIOR TO 01/02/2021 (MEDICAID REPLACEMENT - HMO) Alexsander Glen Ullin [id number] Alexsander Glen Ullin 03/02/2023 1 [facility] ON OR AFTER 01/02/21 (MEDICAID REPLACEMENT - HMO) Alexsander Tejeda [id number] Alexsander Tejeda 04/24/2024 1 [facility] ON OR AFTER 01/02/21 (MEDICAID REPLACEMENT - HMO) Alexsander Tejeda [id number] Alexsander Tejeda Notes Date Note Type Note Provider Name and Address Organization Details Recorded Time 07/21/2018 text/html Pt presents to clinic requesting employment physical. She denies nausea, vomiting, fever, chills, rash, diarrhea, constipation and dysuria. 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 She says she gets debris in Them and they gets uncomfortable. She also has ear pain that seems to come and go. Martin Fowler MD [address], [place], [address], [facility] 03/02/2023 11:01:24 04/24/2024 text/html patient complaining of nasal congestion and drainage. She has thick secretions in her throat. She complains of popping and pressure in her ears. She does have a history of tonsil stones but does well with a water pick. Martin Fowler MD [address], [place], [address], [facility] 04/24/2024 12:39:02 OBGyn Episode No OBEpisode recorded.
--- OUTSIDE RECORDS SUMMARY | 2024-09-23 01:14 | XMS_ITS | Referral Summary ---
Author Organization [facility] Address [facility] [place] [address] Care Team Providers Care Corporate Accounting Manager Name Role Phone Roemo Mcqueen MD Primary Care Provider Car Romero MD Unavailable [phone] Evans Mota MD Unavailable Nolan Robbins MD Unavailable Encounters Date Type Department Care Team Description 09/19/19 Telephone [facility] Gastroenterology at [address] [place] [address] Nabil Newman MD 09/16/19 25 Telephone [facility] Obstetrics and Gynecology [address] [facility] Outpatient Health 7th Floor [address] [place] [phone] Nicky Green CGC 09/14/19 8:06 PM CDT - 09/14/19 11:59 PM CDT Hospital Encounter [facility] [address] [place] [id number] Multiple sclerosis (HCC) Discharge Disposition: Discharge to home or self care 09/13/19 Results Follow-Up [facility] Gastroenterology at [address] [place] [phone] Nabil Newman MD 09/12/19 10:58 AM CDT Anesthesia Event [facility] [address] [place] [address] Liliam Blunt MD 09/12/19 9:30 AM CDT - 09/12/19 10:00 AM CDT Surgery [facility] [address] [place] [address] Nabil Newman MD ESOPHAGOGASTRODUODENOSCOPY BIOPSY 09/12/19 9:02 AM CDT - 09/12/19 12:12 PM CDT Hospital Encounter [facility] Lab [address] [place] [address] Nabil Newman MD Abdominal pain; Change in bowel habits; Chronic idiopathic constipation Discharge Disposition: Discharge to home or self care 09/05/19 Telephone [facility] [address] [facility] [address] [place] [phone] Kelly Sharma [facility] 09/05/19 10:30 AM NETWORK/TELECOM ENGINEER Lab [facility] Lab [address] [place] [address] Abdominal pain 09/01/19 Telephone [facility] [address] [facility] [address] [place] [address] Nael Cunningham MD 09/01/19 Telephone [facility] [address] [facility] [address] [place] [address] Raphael Cedillo MA 08/31/19 25 Orders Only [facility] Gastroenterology at [place] [address] [facility] [address] [place] [address] Nabil Newman MD Abdominal pain (Primary Dx); Change in bowel habits; Chronic idiopathic constipation 08/31/19 25 Orders Only [facility] Obstetrics and Gynecology [facility] Health 7th Floor [address] [place] [address] Nicky Green [facility] Encounter of female for testing for genetic disease carrier status for procreative management (Primary Dx) 08/31/19 25 11:00 AM NETWORK/TELECOM ENGINEER Procedure visit [facility] Obstetrics and Gynecology [address] [facility] 7th [place] [address] Genetic screening (Primary Dx) 08/31/19 10:00 AM NETWORK/TELECOM ENGINEER Clinical Support [facility] Obstetrics and Gynecology [address] [facility] 7th Floor [address] [place] [address] Encounter of female for testing for genetic disease carrier status for procreative management (Primary Dx); Encounter for preconception consultation; Encounter for procreative genetic counseling 08/28/19 Telephone [facility] [address] [facility] [address] [place] [phone] Karly Flores MD Pre Op form GI 08/25/19 Results Follow-Up [facility] Gastroenterology at [address] [place] [phone] Nabil Newman MD 08/25/19 9:00 AM NETWORK/TELECOM ENGINEER - 08/25/19 11:59 PM NETWORK/TELECOM ENGINEER Hospital Encounter [facility]) [address] [place] [address] Abdominal pain Discharge Disposition: Discharge to home or self care 08/24/19 Results Follow-Up [facility] [address] [facility] [address] [place] [address] Karly Flores MD 08/22/19 Telephone [facility] [address] [facility] [address] [place] [address] Liliam Mcbride RN 08/21/19 1:49 PM NETWORK/TELECOM ENGINEER - 08/21/19 11:59 PM NETWORK/TELECOM ENGINEER Hospital Encounter [facility] ([facility]) [address] [place] [address] Abnormal cardiovascular stress test; Other chest pain Discharge Disposition: Discharge to home or self care 08/17/19 Telephone [facility] Gastroenterology at [address] [place] [phone] Nabil Newman MD Scheduling Appointments 08/09/19 8:00 AM NETWORK/TELECOM ENGINEER Telemedicine [facility] Obstetrics and Gynecology [address] [facility] [address] [place] [address] Encounter for preconception consultation (Primary Dx); Chronic migraine without aura without status migrainosus, not intractable; Multiple sclerosis (HCC) 08/08/19 Documentation [facility] [address] [place] [address] Tabitha Haque MD 07/28/19 8:45 AM NETWORK/TELECOM ENGINEER Office Visit [facility] Gastroenterology at [address] [place] [address] Nabil Newman MD Change in bowel habits (Primary Dx); Abdominal pain; Chronic idiopathic constipation; Abnormal stress test 07/18/19 Telephone [facility] [address] [facility] Health 7th Floor [address] [place] [address] Ana West RN 07/18/19 2:00 PM NETWORK/TELECOM ENGINEER Office Visit [facility] [address] [facility] [address] [place] [address] Nael Cunningham MD Multiple sclerosis (HCC) (Primary Dx); Multiple sclerosis (HCC); Intractable chronic migraine without aura and without status migrainosus 07/11/19 Telephone [facility]iology [address] [place] [address] [place] [phone] Karly Flores MD 07/07/19 8:15 AM NETWORK/TELECOM ENGINEER Ancillary Procedure [facility] [address] [place] [address] [place] [phone] Shortness of breath; Other chest pain from Last 3 Months Allergies Active Allergy Reactions Criticality Noted Date Comments Gabapentin Syncope High 09/11/2024 Dimethyl Fumarate Hives Medium 08/09/2024 Medications ketoconazole (NIZORAL) 2 % shampoo 10/03/20 22 Active clobetasoL (TEMOVATE) 0.05 % external solution 04/06/20 22 Active tretinoin (RETIN-A) 0.025 % cream 10/10/19 23 Active ciclopirox 1 % shampoo 11/01/19 23 Active back brace miscIndications: Thoracic compression fracture, sequela 1 Units continuously TLSO Brace 1 each 12/19/19 23 Active acetaminophen (TYLENOL) 500 mg tablet Take 2 tablets (1,000 mg total) by mouth every 6 (six) hours as needed for pain Active clindamycin (CLEOCIN T) 1 % lotion Apply 1 Application topically 2 (two) times a day 05/27/20 23 Active propranoloL (INDERAL) 20 mg tabletIndication s:Chronic migraine without aura without status migrainosus, not intractable Take 1 tablet (20 mg total) by mouth 3 (three) times a day 90 tablet 11 01/05/20 24 025 Active polymyxin B-trimethoprim (POLYTRIM) ophthalmic solution 02/27/20 23 Active cholecalciferol (VITAMIN D-3) 50,000 unit capsuleIndicatio ns:Vitamin D deficiency Take 1 capsule (50,000 Units total) by mouth once a week 12 capsule 3 02/01/20 24 Active [id number] acid 27-800 mg-mcg tablet Take 1 tablet every day by oral route. 02/29/20 24 Active Qulipta 60 mg tablet Take 1 tablet by mouth daily as needed 04/12/20 24 Active Kesimpta Pen 20 mg/0.4 mL pen injector 04/27/20 24 Active Vitamin Plus Low Iron 27 mg iron- 1 mg tablet Take 1 tablet by mouth daily 04/22/20 24 Active loratadine (CLARITIN) 10 mg tabletIndication s:Non-seasonal allergic rhinitis due to pollen Take 1 tablet (10 mg total) by mouth daily as needed for allergies 90 tablet 1 04/27/20 24 025 Active ferrous sulfate 325 mg (65 mg of elemental iron) tabletIndication s:Iron Deficiency Anemia Take 1 tablet (65 mg of elemental iron total) by mouth 2 (two) times a day 180 tablet 3 04/27/20 24 Active fluticasone propionate (FLONASE) 50 mcg/actuation nasal sprayIndications :Non-seasonal allergic rhinitis due to pollen Administer 2 sprays into each nostril daily 1 each 5 04/27/20 24 025 Active lidocaine (LIDODERM) 5 %Indications:Cho ndromalacia of right patella PLACE 1 PATCH ON THE SKIN DAILY. REMOVE & DISCARD PATCH WITHIN 12 HOURS OR DIRECTED BY MD. MUST BE PATCH FREE FOR 12 HOURS BEFORE RE-APPLYING NEW PATCH. 30 patch 1 05/04/20 24 Active linaCLOtide (Linzess) 145 mcg capsuleIndicatio ns:Chronic idiopathic constipation TAKE 1 CAPSULE (145 MCG TOTAL) BY MOUTH DAILY 100 capsule 1 05/05/20 24 Active amitriptyline (ELAVIL) 25 mg tabletIndication s:Chronic migraine without aura without status migrainosus, not intractable Take 1 tablet (25 mg total) by mouth nightly 30 tablet 06/20/20 24 025 Active fremanezumab-vfr m (Ajovy Autoinjector) 225 mg/1.5 mL auto-injector subcutaneous auto-injectorInd ications:Chronic migraine without aura without status migrainosus, not intractable Inject 1.5 mL (225 mg total) under the skin every 30 (thirty) days 1 mL 5 06/20/20 24 Active montelukast (SINGULAIR) 10 mg tablet Take 1 tablet (10 mg total) by mouth nightly 07/11/19 25 Active azelastine (ASTELIN) 137 mcg (0.1 %) nasal spray Administer 2 sprays into each nostril 2 (two) times a day 07/11/[address] (CYMBALTA) 60 mg capsule Take 1 capsule (60 mg total) by mouth 2 (two) times a day 60 capsule 5 07/24/[address] (PROTONIX) 40 mg EC tabletIndication s:Abdominal pain Take 1 tablet (40 mg total) by mouth daily before breakfast 30 tablet 3 07/28/19 25 Active polyethylene glycol (MIRALAX) 17 gram/dose bulk powderIndication s:Constipation, unspecified constipation type TAKE 17 GRAMS (MIXED IN LIQUID DIRECTED) BY MOUTH DAILY NEEDED FOR CONSTIPATION 510 g 1 08/03/19 25 Active indomethacin (INDOCIN) 50 mg capsule TAKE 1 CAPSULE (50 MG TOTAL) BY MOUTH TWO TIMES A DAY WITH MEALS 180 capsule 08/21/19 25 Active bisacodyl EC (DULCOLAX EC) 5 mg EC tabletIndication s:constipation Take 2 tablets (10 mg total) by mouth daily 4 tablet 07/28/19 025 Discontin ued(Stop Taking at Discharge ) Active Problems Problem Noted Date Diagnosed Date Change in bowel habits 07/28/2024 Assessment & Plan (07/28/2024 8:56 AM NETWORK/TELECOM ENGINEER): Worsening constipation over the past few years. -Schedule colonoscopy -The risks (risks of bleeding, infection, perforation requiring surgery, missed polyps/cancer, dental injury, aspiration pneumonia, anesthesia complications such as drug reaction and cardiopulmonary complications including rare chance of ), benefits, and alternatives of the planned procedure were explained to the patient who understands and consents to having procedure done. Abnormal stress test 07/28/2024 Assessment & Plan (07/28/2024 8:57 AM NETWORK/TELECOM ENGINEER): Recent abnormal stress test, noted plans for coronary CTA. -We will request cardiac clearance prior EGD and colonoscopy Chronic migraine without aur a without status migrainosus, not intractable 11/17/2023 Overview (11/17/2023): Please see my note 11/17/2023 for details regarding headache history. Assessment & Plan (06/20/2024 1:48 PM NETWORK/TELECOM ENGINEER): The patient has chronic migraine, as well as pain complaints in her cervical and lumbar back. She reports the chronic migraines are debilitating and keeping her from being able to work. She is applying for disability. The most bothersome symptom to her currently is her allodynia. We discussed therapeutic options and we will try amitriptyline 25 mg q.h.s.. I am hoping this will also help her sleep. She has been on gabapentin before with some relief but reports did significant weight gain so we will avoid the gabapentin and Lyrica for now. Continue Qulipta 60 mg daily. Continue Inderal 20 mg 3 times a day Continue AJOVY 225 mg monthly. She will be seeing MS provider here at [facility]. Assessment & Plan (01/05/2024 1:32 PM CDT): The patient has a history of migraine headaches which has not been terribly responsive to multiple medications. We still have her on Ajovy 225 mg monthly. We will give the several more months to see if there is a significant benefit. I have added propranolol 20 mg twice a day to see if we can bring her headaches under better control. I have encouraged her to keep a headache journal to moderate the severity and frequency of her headaches. She is to communicate via my chart of any questions or problems. Assessment & Plan (11/17/2023 10:30 AM CDT): Assessment Patient has chronic migraines in his failed multiple medications past including Botox. She is currently on Qulipta and AJOVY and tolerating these medications well. She wishes to stay on these for now to see if they bring her headaches under control. She reports that she has also been having stabbing headaches. Please see separate problem regarding discussion of this issue. Patient has follow up with Ophthalmology for her floaters. She does have a history of MS. She follows with an MS specialist. I do not have access to her recent MRIs. I have asked for these to be sent to me so I can review. Plan: Continue Ajovy 225 mg monthly. Continue Qulipta 60 mg daily. Side effects reviewed. I will contact her after I have had a chance to review her recent MRIs Mid back pain 07/27/2023 Overview (12/09/2023): XR 07/2023 FINDINGS: Comparison dated 12/12/2022. There is mild upper thoracic dextrocurvature with apex at T4-T5. The previously noted Schmorl's nodes in the superior endplates of T7, T8, and T9 appears similar to the previous examination. No new fracture or compression fracture. No spondylolisthesis. No significant degenerative disc disease. Imaged portions of the lungs are clear. IMPRESSION: Unchanged femoral nodes in the superior endplates of T7-T9. No compression fracture. Assessment & Plan (03/08/2024 10:52 AM CDT): Will send referral to PT Continue current meds. Assessment & Plan (12/10/2023 9:02 AM CDT): Reviewed XR. No acute compression noted. Assessment & Plan (07/27/2023 11:23 AM NETWORK/TELECOM ENGINEER): Given ongoign pain in the Ts will get updated XR. Intractable chronic migraine without aura and without status migrainosus 07/12/2023 Assessment & Plan (07/18/2024 3:28 PM NETWORK/TELECOM ENGINEER): The patient has a long history of severe migraines. She continues to experience daily migraines. He was currently being treated with the Ajovy, Qulipta, and indomethacin. I will give her for samples of Zavzpret nasal spray for further treatment. I instructed her to use the spray when her migraine headaches became more severe to see if this decreases the intensity. If effective, this could be explored as a potential adjunct therapy for her migraine management. Dizziness 03/18/2023 Shortness of breath 03/18/2023 Class 1 obesity due to exces s calories without serious comorbidity with body mass index (BMI) of 34.0 to 34.9 in adult 02/19/2023 Assessment & Plan (04/27/2024 9:04 AM CDT): Recommended aggressive Lifestyle modification and weight loss for improving overall weight related health conditions. Follow up in 1 or 3 months for continuing Lifestyle Medicine education and management visit. Recommend Lifestyle/Nutrition/Weight Loss Seminar on every other Tuesdays @ 5pm. Assessment & Plan (01/25/2024 8:54 AM CDT): Recommended aggressive Lifestyle modification and weight loss for improving overall weight related health conditions. Follow up in 1 or 3 months for continuing Lifestyle Medicine education and management visit. Recommend Lifestyle/Nutrition/Weight Loss Seminar on every other Tuesdays @ 5pm. Assessment & Plan (02/19/2023 12:05 PM CDT): Recommended aggressive Lifestyle modification and weight loss for improving overall weight related health conditions. Follow up in 1 or 3 months for continuing Lifestyle Medicine education and management visit. Recommend Lifestyle Seminar on Wednesdays @ 5pm. Atypical chest pain 02/04/2023 Low TSH level 01/07/2023 Abnormal weight gain 01/07/2023 Numbness and tingling of right arm 10/16/2022 Overview (12/15/2022): EMG RUE 12/2022 CONCLUSION/INTERPRETATION: No findings of right median or ulnar neuropathy or right cervical radiculopathy or brachial plexopathy Assessment & Plan (10/16/2022 12:17 PM CDT): Possibly related to multiple sclerosis. Given positive tinels and ulnar dist numbness will get EMG. Increase notriptyline. Cervicalgia 10/16/2022 Overview (01/18/2023): MRI 01/2023 The previously noted apparent lesion at C4-C5 is not well seen today. The alignment of the cervical spine is normal. Vertebral bodies demonstrate normal signal intensity on all sequences. No acute fracture is identified; however, if trauma is suspected, a CT scan would be a more sensitive examination for fractures. The craniocervical junction is normal. The visualized portions of the skull base and the posterior fossa are normal. The spinal cord demonstrates normal signal intensity on all sequences. Intervertebral disks have normal height and signal intensity. There are no annular fissures identified. No soft tissue abnormality is identified. Normal signal voids are present in the vertebral arteries. There is no abnormal contrast enhancement. The disks are normal in configuration. There is no facet arthropathy. There is no uncovertebral joint disease. There is no neuroforaminal stenosis. There is no spinal canal stenosis. IMPRESSION: No definite T2 hyperintense lesions in the cervical spine. Assessment & Plan (02/22/2023 11:20 AM CDT): Unchanged - continue to monitor. Assessment & Plan (01/19/2023 2:52 PM CDT): Reviewed MRI. Essentially WNL. Assessment & Plan (12/16/2022 12:36 PM CDT): Will update MRI given new change incidentally seen on thoracic MRI. Assessment & Plan (10/16/2022 12:18 PM CDT): Reviewed prior MRI. Consider TPI. No clear area on MRI amenable to intervention. Added baclofen. Following with neuro as well. Referred to PT. Lumbar spondylosis 10/16/2022 Overview (12/16/2022): MRI 12/2022 Assessment & Plan (02/22/2023 11:19 AM CDT): Consider MBB but facetogenic pain seems lesser issue - more diffuse sx. Assessment & Plan (01/19/2023 2:52 PM CDT): Consider MBB but axial sx lesser. Assessment & Plan (12/16/2022 12:36 PM CDT): Notes some benefit from PT. Consider MBB. No specific correlate in terms of her leg sx. Potentially related to her multiple sclerosis more so. Assessment & Plan (10/16/2022 12:18 PM CDT): Ordered MRI. Added baclofen. Following with neuro as well. Referred to PT. Other seborrheic dermatitis 10/09/2022 Neoplasm of uncertain behavior of skin Other acne 10/09/2022 Constipation 04/12/2022 Assessment & Plan (07/28/2024 8:56 AM NETWORK/TELECOM ENGINEER): Chronic constipation, getting progressively worse over the past few years. Patient has failed xplh-tdt-saawiir laxatives like MiraLax. Takes Linzess p.r.n. -High-fiber diet -Recommend taking Linzess 145 mcg p.o. daily Assessment & Plan (04/12/2022 3:33 PM CDT): Acute-started on 17 g of Miralax in [...] BMs, fever, lethargy, or loss of appetite. Multiple sclerosis 12/31/2021 Overview (02/22/2023): MS medication history: RRMS Symptom onset: 2019 Tumefactive lesion with headache Diagnosis: 1. glatiramer acetate: Few months; poorly tolerated 2. Tecfidera: 08/2021- - Lidocaine infusion (01/2023) not helpful more than 3 days. Gabapentin, pregabalin, baclofen, and notriptyline all ineffective. Pain Management MRI T/Ls 12/2022 FINDINGS: THORACIC SPINE: There is a possible T2 hyperintense lesion within the cervical cord at the left C7 level, new compared to the prior MRI of the cervical spine from April 23, 2022. A small T2 hyperintense lesion is seen within the anterior cord at T3 unchanged compared to prior thoracic MRI. Small T2 hyperintense lesion is seen within the anterior cord at T6-T7, also unchanged compared to prior study. The alignment of the thoracic spine is normal. There is a T1 and T2 hyperintense, STIR hypointense lesion within the inferior endplate of the T11 vertebral body, unchanged and likely a vertebral body hemangioma. l. Multilevel disc a loss and desiccation. Schmorl's nodes are seen within the superior endplates of T7, T8 and T9, with associated mild compression fractures and mild edema, new compared to prior thoracic MRI from January 23, 2021. Mild endplate compression fractures at T4 and T5 are unchanged in comparison to 08/23/2021. Limited views of the abdomen and pelvis show no soft tissue abnormality. There are no areas of abnormal contrast enhancement. The disks are normal in configuration. There is no facet arthropathy. There is no neuroforaminal stenosis. There is no spinal canal stenosis. LUMBAR SPINE: The alignment of the lumbar spine is normal. Vertebral bodies demonstrate normal signal intensity on all sequences. There are no compression fractures. The conus medullaris terminates at the level of L1. The distal spinal cord signal intensity is normal. Mild multilevel intervertebral disc height loss and desiccation. There are no annular fissures identified. Limited views of the abdomen and pelvis show no soft tissue abnormality. Mild subcutaneous soft tissue edema is noted in the lumbar region. There are no areas of abnormal contrast enhancement. L1-L2: The disc is normal in configuration. There is no facet arthropathy. There is no neuroforaminal stenosis. There is no spinal canal stenosis. L2-L3: The disc is normal in configuration. There is no facet arthropathy. There is no neuroforaminal stenosis. There is no spinal canal stenosis. L3-L4: The disc is normal in configuration. There is mild bilateral facet arthropathy. There is no neuroforaminal stenosis. There is no spinal canal stenosis. L4-L5: Mild posterior disc bulge. There is mild bilateral facet arthropathy. There is no neuroforaminal stenosis. There is no spinal canal stenosis. L5-S1: Mild posterior disc bulge. There is mild bilateral facet arthropathy. There is no neuroforaminal stenosis. There is no spinal canal stenosis. IMPRESSION: 1. Possible T2 hyperintense lesion within the left cervical cord at the C7 level, new compared to the prior MRI from April 23, 2022. Its only seen on the axial T2's and is on the 1st slice, thus might represent artifact. 2. Unchanged T2 hyperintense lesions within the thoracic cord at T3 and T6-T7 levels. These lesions are compatible with demyelinating disease. 3. New Schmorl's nodes and mild compression fractures at T7, T8, and T9 with associated mild edema. - MRI Brain/Cs 04/2022 FINDINGS: BRAIN: There are 2 periventricular T2 such FLAIR hyperintense lesions which are unchanged from the prior examination. New Brain T2 Lesions: None T1 Hypointense ?Black Holes?: None Enhancing Brain Lesions: None The visualized portions of the optic nerves are normal. The scalp and calvarium are normal. The superior sagittal sinus demonstrates normal venous flow. The posterior fossa is unremarkable. The craniocervical junction is unremarkable. The pituitary and sella are normal. Diffusion weighted images reveal no hyperintensities to suggest acute cerebral infarction. The susceptibility weighted sequences reveal no evidence of acute or chronic hemorrhage. The ventricles are normal in size and position. The paranasal sinuses are normal. The visualized portions of the mastoids are unremarkable. The orbits appear normal. Normal flow voids are demonstrated in the carotid arteries and basilar artery. CERVICAL SPINE: There is apparent intramedullary T2 hyperintensity on the sagittal STIR sequence at the C4-C5 level (series 2 image 9) which does not persist on all sequences, indeterminate. New Spine T2 Lesions: No definite lesions. Enhancing Spine Lesions: None There is straightening of the typical cervical lordosis. Vertebral bodies demonstrate normal signal intensity on all sequences. No acute fracture is identified; however, if trauma is suspected, a CT scan would be a more sensitive examination for fractures. The craniocervical junction is normal. Intervertebral disks have normal height and signal intensity. There is congenitally narrow morphology of the visualized spinal canal. IMPRESSION: Multiple intracranial white matter lesions compatible with multiple sclerosis. Indeterminate area of apparent focal T2/STIR hyperintensity in the left cervical spinal cord at the C4-C5 level is not clearly confirmed on additional sequences but may represent focal area of demyelination, no associated enhancement. Attention on follow-up is recommended. New T2 Lesions: None Enhancing Lesions: None Assessment & Plan (07/18/2024 3:32 PM NETWORK/TELECOM ENGINEER): The patient is presenting to establish care for multiple sclerosis. She initially began having neurological symptoms in 2019 that consisted of severe migraine and general body pain. She then had an episode of hallucinations and confusion in 2020 and was diagnosed with multiple sclerosis. She was undergone serial brain and spinal MRIs that demonstrated multiple T2 hyperintense signal changes in her brain and thoracic spine. There was some suspicion about a possible cervical spinal cord lesion but is not appreciable on my evaluation of the 2022 cervical MRI the patient was undergone. Her CSF testing showed one unique oligoclonal band. Over time, her symptoms have consisted of fatigue, balance difficulties, and pain. Her most recent MRI in September, demonstrated no new or enhancing lesions. She has been on Kesimpta since February, and has been tolerating it well after the first infusion. We discussed ongoing management of her multiple sclerosis. Kesimpta is an effective disease modifying therapy for the patient and she was tolerating it without notable side effects. We will continue her on the Kesimpta. For symptomatic treatment of her diffuse pain, I will increase her Cymbalta from 30 mg twice daily to 60 mg twice daily. We will also continue amitriptyline 25 mg nightly. We will continue to monitor for an effect on her fatigue and consider treatment of her fatigue if that persists. She was following up with a disability insurance claim examiner for further evaluation of her GI issues and is working with Cardiology for further evaluation of cardiac issues. I will see her back in six months for follow up instructed her to reach out in the meantime if any questions arise. We will plan on repeating her brain and cervical MRI in 09/2024. I will also refer the patient to physical therapy for further treatment of her back pain and balance difficulties. Continue vitamin-D 20408 units weekly. We will Assessment & Plan (03/08/2024 4:56 PM CDT): Continue duloxetine. Continue to follow with neurology. Assessment & Plan (12/10/2023 9:02 AM CDT): Following Dr. Massey as well as Dr. Liu. Reports she may be switching from Dr. Liu as he may not be in network. Duloxetine remains the most helpful option. Assessment & Plan (07/27/2023 11:22 AM NETWORK/TELECOM ENGINEER): Continue dosing of duloxetine. Following with neurology. Assessment & Plan (04/23/2023 11:15 AM CDT): Cymbalta with some benefit will increase to 30mg BID. F/U 3 mos. Assessment & Plan (03/25/2023 10:14 AM CDT): Continue cymbalta - discussed it can take some time to notice a change. Assessment & Plan (02/22/2023 11:20 AM CDT): Taper off nortriptyline - 25mg QHS for a week, start duloxetine 30mg daily one week after notriptyline has been discontinued. Assessment & Plan (01/19/2023 10:23 AM CDT): Decrease Nortriptyline to 50mg. Wean off Lyrica due to sedation. Lidocaine infusion at next available. Assessment & Plan (12/16/2022 12:37 PM CDT): EMG reviewed. Ts/Ls MRI reviewed. Will update cervical MRI given new finding incidentally seen. She is following with neurology as well. Trial lyrica. Assessment & Plan (10/16/2022 12:16 PM CDT): Will trial increase in nortriptyline and add baclofen. Consider lyrica. Ordered Ts/Ls MRI today to eval her pain in Ts/Ls. Reviewed MRI Cs from late 2021 - no clear area amenable to intervention. She is going to f/u with neuro to see what the interval of f/u imaging will be. Referred to PT. BONE GRINDER demyelination 02/18/2021 Chronic tonsillitis 01/28/2021 Assessment & Plan (01/28/2021 8:59 AM CDT): Overall Condition New Acute Problem. Treatment: New Medication: as prescribed. Follow up in 6 months Acute recurrent pansinusitis 09/30/2020 Assessment & Plan (09/30/2020 2:34 PM CDT): Overall Condition Chronic Condition: Uncontrolled. Treatment: New Medication: Recommend Claritin. 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 Description sounds like primary stabbing headache. We discussed therapeutic options. We will start indomethacin 50 mg twice a day. She is to take this with food. Side effects reviewed. Assessment & Plan (04/17/2020 11:38 AM CDT): Overall Condition: New Acute Problem and unclear diagnosis Treatment: New Medication: T3. Acylovir per hospital recommedation till 04/24. and Referral: neurology Follow up PRN Abnormal brain MRI 04/10/2020 Acute vaginitis 06/09/2017 Overview (02/16/2023): Acute vaginitis; Progress: Stable Added By: Marcin Galarza Add to Current Problems: YES ProblemStatus: Current Bacterial vaginosis; Location: None Progress: Stable Added By: Nicci Dee Add to Current Problems: YES ProblemStatus: Resolve; Start Date : 06/10/2017 Acute vaginitis; Severity: Moderate Progress: Stable Added By: Marcin Galarza Add to Current Problems: YES ProblemStatus: Current Bacterial vaginosis; Location: None Severity: Moderate Progress: Stable Added By: Nicci Dee Add to Current Problems: YES ProblemStatus: Resolve Female genital symptoms 06/06/2017 Overview (02/16/2023): pelvic pain; Location: None Progress: Stable Added By: Yaa Long Add to Current Problems: YES ProblemStatus: Resolve; Start Date : 09/24/2014 Pelvic pain; Location: None Progress: Stable Added By: Maria Esther White Add to Current Problems: YES ProblemStatus: Resolve Pelvic pain; Location: None Progress: Stable Added By: Cynthia Trujillo Add to Current Problems: YES ProblemStatus: Resolve; Start Date : 07/07/2016 Abdominal pain 06/06/2017 Overview (02/16/2023): Abdominal pain, NOS; Location: None Progress: Stable Added By: Maria Esther White Add to Current Problems: YES ProblemStatus: Resolve Assessment & Plan (07/28/2024 8:55 AM NETWORK/TELECOM ENGINEER): Chronic lower abdominal pain, radiates to the upper abdomen. Somewhat improved with bowel movements. -avoid NSAIDS -Start pantoprazole 40 mg p.o. daily -Labs - CBC, CMP, lipase, celiac disease panel -We will order abdominal ultrasound -schedule EGD -The risks (risks of bleeding, infection, perforation requiring surgery, missed polyps/cancer, dental injury, aspiration pneumonia, anesthesia complications such as drug reaction and cardiopulmonary complications including rare chance of ), benefits, and alternatives of the planned procedure were explained to the patient who understands and consents to having procedure done. Pelvic and perineal pain 07/06/2016 Overview (02/16/2023): Pelvic and perineal pain; Progress: Stable Added By: Nadeen Elliott Add to Current Problems: NO ProblemStatus: Resolve Menorrhagia 06/25/2016 Overview (02/16/2023): Menorrhagia; Location: None Progress: Stable Added By: Navya King Add to Current Problems: YES ProblemStatus: Resolve Follicular cyst of ovary 09/24/2014 Overview (02/16/2023): Ovarian cyst; Location: None Progress: Stable Added By: Loni Boss Add to Current Problems: YES ProblemStatus: Current Ovarian cyst; Progress: Stable Added By: Loni Boss Add to Current Problems: NO ProblemStatus: Resolve Presence of subdermal contraceptive implant 05/05 Overview (07/12/2023): Patient with subdermal contraceptive implant (Norplant); Location: None Progress: Stable Added By: Kayla Gonzalez Add to Current Problems: YES ProblemStatus: Resolve Abnormal uterine bleeding 07/30/2013 Overview (02/16/2023): Abnormal uterine bleeding; Progress: Stable Added By: Eric Maldonado Add to Current Problems: NO ProblemStatus: Resolve Immunizations Immunization Administration Dates Next Due DTP / HiB 1997 DTaP 01/02/2002,12/23/2000,04/23/2000 HPV, Quadrivalent 09/03/2014 HPV9 08/07/2015 Hep A, Pediatric 12/31/2005,04/21/2005 Hep B / HiB 04/23/2000 Hep B, Adolescent or Pediatric 12/23/2000,1997 IPV 01/02/2002, 1,12/23/2000,04/23/2000,0 1997 Influenza, Unspecified 04/27/2024(Deferr ed: Patient decision),06/01/2023(Deferred: Patient Refused),03/05/2022(Deferred: Patient decision) MMR 01/02/2002,04/23/2000 Meningococcal MCV4P (Menactra) 01/08/2014 Tdap 01/09/2019,01/09/2019,08/07/2015 Varicella 08/07/2015,04/23/2000 Social History Tobacco Use Types Packs/Day Years Used Date Smoking Tobacco: Never Smokeless Tobacco: Never Tobacco Cessation:Counseling Given: Not Answered Alcohol Use Standard Drinks/Week Comments Never 0 (1 standard drink = 0.6 oz pur e alcohol) AUDIT-C Answer Date Recorded Q1: How often do you have a drink containing alcohol? Never 09/11/2024 Q2: How many drinks containi ng alcohol do you have on a typical day when you are drinking? Patient does not drink Q3: How often do you have si x or more drinks on one occasion? Never 09/11/2024 PHQ-2 Answer Date Recorded PHQ-2 Total Score (If total score is 3 or more points, staff should administer the PHQ-9) 0 01/25/2024 Hunger Vital Sign Answer Date Recorded Within the past 12 months, y ou worried that your food would run out before you got the money to buy more. Never true 03/08/20 Within the past 12 months, t he [...] making you feel afraid or unsafe? Denies 09/11/2024 Comments No Sex and Gender Information Value Date Recorded Sex Assigned at Not on file Legal Sex Female 7:38 PM NETWORK/TELECOM ENGINEER Gender Identity Not on file Sexual Orientation Not on file Last Filed Vital Signs Vital Sign Reading Time Taken Comments Blood Pressure 115/82 09/11/2024 11:45 AM CDT Pulse 75 09/11/2024 11:45 AM CDT Temperature 36.1 C (97 F) 09/11/2024 11:27 AM CDT Respiratory Rate 19 09/11/2024 11:45 AM CDT Oxygen Saturation 100% 09/11/2024 11:45 AM CDT Inhaled Oxygen Concentration - - Weight 81.6 kg (180 lb) 09/11/2024 9:22 AM CDT Height 154.9 cm (5' 1 ) 07/28/2024 8:34 AM NETWORK/TELECOM ENGINEER Body Mass Index 34.01 07/28/2024 8:34 AM NETWORK/TELECOM ENGINEER Plan of Treatment Not on file Goals Goal Patient Goal Type Associated Problems Recent Progress Patient-Stated? Author CCM Chronic Pain Care Plan Chronic Care Management No change(03/08 9:32 AM CDT) No Kelly Fuentes, MARÍA Note: Problem: Chronic Pain Goals: 1. Minimize further functional decline 2. Maximize quality of life 3. Control pain Strategies: - Activity/exercise program recommendation - Conservative stepwise pain medicine strategy with multi-disciplinary approach - Recommend healthy lifestyle strategies and compensatory methods as needed Procedures Procedure Name Priority Date/Time Associated Diagnosis Comments MRI MS BRAIN 3T PROTOCOL W W O CONTRAST Routine 09/13/2024 9:23 PM CDT Multiple sclerosis (HCC) MRI CERVICAL SPINE W WO CONTRAST Routine 09/13/2024 9:23 PM CDT Multiple sclerosis (HCC) SURGICAL PATHOLOGY Routine 09/11/2024 11:04 AM CDT Abdominal pain Change in bowel habits Chronic idiopathic constipation COLONOSCOPY 09/11/2024 10:58 AM CDT Abdominal pain Change in bowel habits Chronic idiopathic constipation ESOPHAGOGASTRODUODENOSCOPY BIOPSY 09/11/2024 10:58 AM CDT Abdominal pain Change in bowel habits Chronic idiopathic constipation EGD 09/11/2024 10:15 AM CDT COLONOSCOPY 09/11/2024 10:14 AM CDT POCT HCG, URINE Routine 09/11/2024 9:53 AM CDT EGFR Routine 09/04/2024 10:51 AM NETWORK/TELECOM ENGINEER Abdominal pain DIFFERENTIAL AUTO Routine 09/04/2024 10:51 AM NETWORK/TELECOM ENGINEER Abdominal pain GLIADIN ANTIBODY, IGA Routine 09/04/2024 10:51 AM NETWORK/TELECOM ENGINEER Abdominal pain TISSUE TRANSGLUTAMINASE, IGA Routine 09/2024 10:51 AM NETWORK/TELECOM ENGINEER Abdominal pain CBC WITH AUTO DIFFERENTIAL Routine 09/04 10:51 AM NETWORK/TELECOM ENGINEER Abdominal pain COMPREHENSIVE METABOLIC PANEL Routine 10:51 AM NETWORK/TELECOM ENGINEER Abdominal pain LIPASE Routine 09/04/2024 10:51 AM NETWORK/TELECOM ENGINEER Abdominal pain CELIAC DISEASE ANTIBODY SCREEN Routine 0 09/04/2024 10:51 AM NETWORK/TELECOM ENGINEER Abdominal pain MISCELLANEOUS LAB TEST Routine 08/31/2024 Encounter of female for testing for genetic disease carrier status for procreative management US ABDOMEN COMPLETE Schedule Routine, Read Routine (OP Routine) 08/25/2024 9:57 AM NETWORK/TELECOM ENGINEER Abdominal pain CT HEART MORPHOLOGY AND CORONARY ARTERIES W CONTRAST Schedule Routine, Read Routine (OP Routine) 08/21/2024 2:41 PM NETWORK/TELECOM ENGINEER Abnormal cardiovascular stress test Other chest pain POCT CREATININE - DEVICE Routine 025 2:19 PM NETWORK/TELECOM ENGINEER NM MPI SPECT (REST AND/OR STRESS) MULTIPLE STUDIES Schedule Routine, Read Routine (OP Routine) 07/07/2024 11:51 AM NETWORK/TELECOM ENGINEER Shortness of breath Other chest pain HM PAP SMEAR WITH HPV Routine 03/14/2020 from Last 3 Months or Most Recently Relevant to Health Maintenance Results * MRI Cervical Spine W WO Contrast (09/13/2024 9:23 PM CDT) Anatomical Region Laterality Modality Spine N/A Magnetic Resonan ce 09/14/2024 11:1 1 AM CDT Impressions 09/14/2024 12:19 PM CDT 1. A few unchanged intracranial white matter lesions. 2. No spinal lesions identified. 3. New T2 Lesions: None. 4. Enhancing Lesions: None. Dictated by: Lori Degroot, The radiology attending physician has personally reviewed this study, and had reviewed and/or edited this written report and agrees with it. Electronically signed by: Asaf Singer M.D. Narrative 09/14/2024 12:19 PM CDT EXAMINATION: 1. Magnetic resonance imaging (MRI) of the brain and brainstem without and with contrast 2. Magnetic resonance imaging (MRI) of the cervical spine without and with contrast HISTORY: 29-year-old female with multiple sclerosis TECHNIQUE: Multiplanar multi-weighted MRI of the brain, brainstem was performed without and with intravenous contrast using the multiple sclerosis protocol, which includes high resolution 3D T1-weighted, FLAIR, and T2*-weighted gradient echo images. Multiplanar multi-weighted MRI of the cervical spine was performed without and with intravenous contrast using the standard protocol. Scanner: [facility] Field Strength: 3T Contrast information: 16 mL Gadoterate Meglumine IV The post-contrast brain scan was performed approximately 12 minutes after IV contrast administration. COMPARISON: MRI cervical spine dated 01/02/2023, MRI of brain dated 03/02/2023 FINDINGS: BRAIN: There are a few unchanged periventricular T2/FLAIR white matter hyperintensities. New Brain T2 Lesions: None. T1 Hypointense Black Holes : 1 Enhancing Brain Lesions: None. T2/FLAIR [place] of Disease: Mild, less than 10 typical lesions or 20 punctate lesions Parenchymal Volume Loss: None Central Vein Sign: Majority of lesions The visualized portions of the optic nerves are normal. The scalp and calvarium are normal. The superior sagittal sinus demonstrates normal venous flow. The pituitary and sella are normal. The brainstem and craniocervical junction are unremarkable. Diffusion weighted images reveal no hyperintensities to suggest acute cerebral infarction. The susceptibility weighted sequences reveal no evidence of acute or chronic hemorrhage. The ventricles are normal in size and position without evidence of hydrocephalus. The paranasal sinuses are normal. The visualized portions of the mastoids are unremarkable. The orbits appear normal. Normal flow voids are demonstrated in the carotid arteries and basilar artery. CERVICAL SPINE: The spinal cord demonstrates normal signal intensity on all sequences. New Spine T2 Lesions: None. Enhancing Spine Lesions: None. Straightening of the cervical spine. Vertebral bodies demonstrate normal signal intensity on all sequences. No acute fracture is identified. The craniocervical junction is normal. Intervertebral disks have normal height and signal intensity. No soft tissue abnormality is identified. Normal signal voids are present in the vertebral arteries. Procedure Note Asaf Singer MD - 09/14/2024 EXAMINATION: 1. Magnetic resonance imaging (MRI) of the brain and brainstem without and with contrast 2. Magnetic resonance imaging (MRI) of the cervical spine without and with contrast HISTORY: 29-year-old female with multiple sclerosis TECHNIQUE: Multiplanar multi-weighted MRI of the brain, brainstem was performed without and with intravenous contrast using the multiple sclerosis protocol, which includes high resolution 3D T1-weighted, FLAIR, and T2*-weighted gradient echo images. Multiplanar multi-weighted MRI of the cervical spine was performed without and with intravenous contrast using the standard protocol. Scanner: [facility] Field Strength: 3T Contrast information: 16 mL Gadoterate Meglumine IV The post-contrast brain scan was performed approximately 12 minutes after IV contrast administration. COMPARISON: MRI cervical spine dated 01/02/2023, MRI of brain dated 03/02/2023 FINDINGS: BRAIN: There are a few unchanged periventricular T2/FLAIR white matter hyperintensities. New Brain T2 Lesions: None. T1 Hypointense Black Holes : 1 Enhancing Brain Lesions: None. T2/FLAIR [place] of Disease: Mild, less than 10 typical lesions or 20 punctate lesions Parenchymal Volume Loss: None Central Vein Sign: Majority of lesions The visualized portions of the optic nerves are normal. The scalp and calvarium are normal. The superior sagittal sinus demonstrates normal venous flow. The pituitary and sella are normal. The brainstem and craniocervical junction are unremarkable. Diffusion weighted images reveal no hyperintensities to suggest acute cerebral infarction. The susceptibility weighted sequences reveal no evidence of acute or chronic hemorrhage. The ventricles are normal in size and position without evidence of hydrocephalus. The paranasal sinuses are normal. The visualized portions of the mastoids are unremarkable. The orbits appear normal. Normal flow voids are demonstrated in the carotid arteries and basilar artery. CERVICAL SPINE: The spinal cord demonstrates normal signal intensity on all sequences. New Spine T2 Lesions: None. Enhancing Spine Lesions: None. Straightening of the cervical spine. Vertebral bodies demonstrate normal signal intensity on all sequences. No acute fracture is identified. The craniocervical junction is normal. Intervertebral disks have normal height and signal intensity. No soft tissue abnormality is identified. Normal signal voids are present in the vertebral arteries. IMPRESSION: 1. A few unchanged intracranial white matter lesions. 2. No spinal lesions identified. 3. New T2 Lesions: None. 4. Enhancing Lesions: None. Dictated by: Lori Degroot DO The radiology attending physician has personally reviewed this study, and had reviewed and/or edited this written report and agrees with it. Electronically signed by: Asaf Singer M.D. Nael Cunningham MD IM MRI PROCEDURES Fi nal Result * MRI MS Brain 3T Protocol W WO Contrast (09/13/2024 9:23 PM CDT) Anatomical Region Laterality Modality Head and Neck N/A Magnetic Resonan ce 09/14/2024 11:1 1 AM CDT Impressions 09/14/2024 12:19 PM CDT 1. A few unchanged intracranial white matter lesions. 2. No spinal lesions identified. 3. New T2 Lesions: None. 4. Enhancing Lesions: None. Dictated by: Lori Degroot DO The radiology attending physician has personally reviewed this study, and had reviewed and/or edited this written report and agrees with it. Electronically signed by: Asaf Singer M.D. Narrative 09/14/2024 12:19 PM CDT EXAMINATION: 1. Magnetic resonance imaging (MRI) of the brain and brainstem without and with contrast 2. Magnetic resonance imaging (MRI) of the cervical spine without and with contrast HISTORY: 29-year-old female with multiple sclerosis TECHNIQUE: Multiplanar multi-weighted MRI of the brain, brainstem was performed without and with intravenous contrast using the multiple sclerosis protocol, which includes high resolution 3D T1-weighted, FLAIR, and T2*-weighted gradient echo images. Multiplanar multi-weighted MRI of the cervical spine was performed without and with intravenous contrast using the standard protocol. Scanner: [facility] Field Strength: 3T Contrast information: 16 mL Gadoterate Meglumine IV The post-contrast brain scan was performed approximately 12 minutes after IV contrast administration. COMPARISON: MRI cervical spine dated 01/02/2023, MRI of brain dated 03/02/2023 FINDINGS: BRAIN: There are a few unchanged periventricular T2/FLAIR white matter hyperintensities. New Brain T2 Lesions: None. T1 Hypointense Black Holes : 1 Enhancing Brain Lesions: None. T2/FLAIR [place] of Disease: Mild, less than 10 typical lesions or 20 punctate lesions Parenchymal Volume Loss: None Central Vein Sign: Majority of lesions The visualized portions of the optic nerves are normal. The scalp and calvarium are normal. The superior sagittal sinus demonstrates normal venous flow. The pituitary and sella are normal. The brainstem and craniocervical junction are unremarkable. Diffusion weighted images reveal no hyperintensities to suggest acute cerebral infarction. The susceptibility weighted sequences reveal no evidence of acute or chronic hemorrhage. The ventricles are normal in size and position without evidence of hydrocephalus. The paranasal sinuses are normal. The visualized portions of the mastoids are unremarkable. The orbits appear normal. Normal flow voids are demonstrated in the carotid arteries and basilar artery. CERVICAL SPINE: The spinal cord demonstrates normal signal intensity on all sequences. New Spine T2 Lesions: None. Enhancing Spine Lesions: None. Straightening of the cervical spine. Vertebral bodies demonstrate normal signal intensity on all sequences. No acute fracture is identified. The craniocervical junction is normal. Intervertebral disks have normal height and signal intensity. No soft tissue abnormality is identified. Normal signal voids are present in the vertebral arteries. Procedure Note Asaf Singer MD - 09/14/2024 EXAMINATION: 1. Magnetic resonance imaging (MRI) of the brain and brainstem without and with contrast 2. Magnetic resonance imaging (MRI) of the cervical spine without and with contrast HISTORY: 29-year-old female with multiple sclerosis TECHNIQUE: Multiplanar multi-weighted MRI of the brain, brainstem was performed without and with intravenous contrast using the multiple sclerosis protocol, which includes high resolution 3D T1-weighted, FLAIR, and T2*-weighted gradient echo images. Multiplanar multi-weighted MRI of the cervical spine was performed without and with intravenous contrast using the standard protocol. Scanner: [facility] Field Strength: 3T Contrast information: 16 mL Gadoterate Meglumine IV The post-contrast brain scan was performed approximately 12 minutes after IV contrast administration. COMPARISON: MRI cervical spine dated 01/02/2023, MRI of brain dated 03/02/2023 FINDINGS: BRAIN: There are a few unchanged periventricular T2/FLAIR white matter hyperintensities. New Brain T2 Lesions: None. T1 Hypointense Black Holes : 1 Enhancing Brain Lesions: None. T2/FLAIR [place] of Disease: Mild, less than 10 typical lesions or 20 punctate lesions Parenchymal Volume Loss: None Central Vein Sign: Majority of lesions The visualized portions of the optic nerves are normal. The scalp and calvarium are normal. The superior sagittal sinus demonstrates normal venous flow. The pituitary and sella are normal. The brainstem and craniocervical junction are unremarkable. Diffusion weighted images reveal no hyperintensities to suggest acute cerebral infarction. The susceptibility weighted sequences reveal no evidence of acute or chronic hemorrhage. The ventricles are normal in size and position without evidence of hydrocephalus. The paranasal sinuses are normal. The visualized portions of the mastoids are unremarkable. The orbits appear normal. Normal flow voids are demonstrated in the carotid arteries and basilar artery. CERVICAL SPINE: The spinal cord demonstrates normal signal intensity on all sequences. New Spine T2 Lesions: None. Enhancing Spine Lesions: None. Straightening of the cervical spine. Vertebral bodies demonstrate normal signal intensity on all sequences. No acute fracture is identified. The craniocervical junction is normal. Intervertebral disks have normal height and signal intensity. No soft tissue abnormality is identified. Normal signal voids are present in the vertebral arteries. IMPRESSION: 1. A few unchanged intracranial white matter lesions. 2. No spinal lesions identified. 3. New T2 Lesions: None. 4. Enhancing Lesions: None. Dictated by: Lori Degroot, The radiology attending physician has personally reviewed this study, and had reviewed and/or edited this written report and agrees with it. Electronically signed by: Asaf Singer M.D. Nael Cunningham MD David MRI PROCEDURES Fi nal Result * Surgical pathology (09/11/2024 11:04 AM CDT) Tissue (Duodenum, Biopsy) 09/11/2024 11:04 AM CDT Tissue (Gastric/Stomach biopsy) 09/11/2024 11:03 AM CDT Tissue (Esophageal biopsy) 09/11/2024 11:05 AM CDT Narrative PATHOLOGY [facility] - 09/12/2024 2:14 PM CDT [facility] Department of Pathology [address] [place] [address] Note to Patients: This report may contain a detailed description of human tissue sent by a health care provider to the laboratory for pathologic evaluation. The content of this report is essential for diagnosis and may provide important critical findings. This information may be unfamiliar to patients to review without a medical professional present. It is advised that the patient review this report in the presence of a health care provider who can answer questions and explain the details. Final Report Patient Name: SHARDA STARK : 1995 (Age: 29) Gender: F Address: [address] [place] [address] [facility] #: [id number] Service: Gastro Location: Patient Type: [facility] OUTPATIENT Taken: 09/11/2024 Received: 09/11/2024 Accessioned: 09/11/2024 Reported: 09/12/2024 Physician(s): Dudley Nguyễn M.D. Diagnosis: A. Small bowel, duodenum, biopsy - Normal duodenal mucosa B. Stomach, body and antrum, biopsy - Normal antral and oxyntic mucosa - No H. pylori organisms are identified by H&E examination C. Esophagus, distal, biopsy - Esophageal squamous and gastric cardio oxyntic type mucosa with chronic esophagitis and reactive epithelial changes consistent with gastroesophageal reflux - Negative for goblet cells Ida Dover MD Report Electronically Reviewed and Signed Out By Ida Dover MD 09/12/2024 14:14:06 Specimen(s) Received: A: Duodenal biopsy B: Gastric body and antrum bx C: Distal esophageal bx Microscopic Description: Unless gross-only is specified, the final diagnosis for each specimen is based on a microscopic examination of each tissue sample. Clinical History: The patient is a 29-year-old woman with abdominal pain, change in bowel habits and chronic idiopathic constipation. Operative procedure: Upper GI endoscopy and colonoscopy with biopsy. Gross Description Received in three formalin jars labeled with the patient's identifiers. A. Labeled duodenal biopsy rule out celiac disease and consists of three johnson-pink tissue fragments each measuring 0.2 cm. Entirely submitted. Labeled A1. Jar 0. B. Labeled gastric body and antrum Bx rule out H pylori and consists of two johnson- pink tissue fragments each measuring 0.3 cm. Entirely submitted. Labeled B1. Jar 0. C. Labeled distal esophageal Bx rule out Barretts esophagus and consists of two johnson-pink tissue fragments measuring 0.3 cm and 0.4 cm. Entirely submitted. Labeled C1. Jar 0. [facility]/09/11/2024 13:38 MISHA Baig, PA (ASCP) Microscopic slide review and interpretation for this case was performed at [facility], Department of Surgical Pathology, [address] [facility], [id number], [place] [address] CLIA # [id number] us Nabil Newman MD LAB PATHOLOGY ORDERABLES Final R esult PATHOLOGY [facility] * EGD (09/11/2024 10:15 AM CDT) Anatomical Region Laterality Modality Other Narrative Procedure Note Nabil Newman MD - 09/11/2024 10:15 AM CDT [facility] GI ENDOSCOPY Patient Name: Sharda Stark Procedure Date: 09/11/2024 10:15 AM Date of : 1995 Admit Type: Outpatient Age: 29 Gender: Female Attending MD: Nabil Newman M.D. Room: [facility] ENDOSCOPY ROOM 03 Note Status: Finalized Procedure: Upper GI endoscopy Indications: Abdominal pain Referring MD: Providers: Nabli Newman M.D. Medicines: Monitored Anesthesia Care Complications: No immediate complications. Procedure: Pre-Anesthesia Assessment: - Prior to the procedure, a History and Physicalwas performed, and patient medications and allergieswere reviewed. The risks and benefits of the procedureand the sedation options and risks were discussed withthe patient. All questions were answered and informed consent was obtained. Patient identification and proposed procedure were verified. After reviewingthe risks and benefits, the patient was deemed in satisfactory condition to undergo the procedure.The anesthesia plan was to use monitored anesthesiacare (MAC). Immediately prior to administration of medications, the patient was re-assessed foradequacy to receive sedatives. The heart rate, respiratory rate, oxygen saturations, blood pressure, adequacyof pulmonary ventilation, and response to care were monitored throughout the procedure. The physical status of the patient was re-assessed after the procedure. The benefits, risks, and alternatives to theprocedure and sedation were discussed and informed consentwas obtained. The scope was passed under direct vision. The GIF-Q180 upper endoscope was introduced through the mouth, and advanced to the second part of duodenum. The upper GI endoscopy was accomplished without difficulty. The patient tolerated the procedure well. Findings: The Z-line was irregular and was found in the distal esophagus. Thiswas biopsied with a cold forceps for evaluation to rule out Edwards's Esophagus. Mild inflammation characterized by erythema was found in the stomach. Biopsies were taken with a cold forceps for Helicobacter pyloritesting. The examined duodenum was normal. Biopsies for histology were takenwith a cold forceps for evaluation of celiac disease. The cardia and gastric fundus were normal on retroflexion. The exam was otherwise without abnormality. Impression: - Z-line irregular, in the distal esophagus.Biopsied. - Gastritis. Biopsied. - Normal examined duodenum. Biopsied. - The examination was otherwise normal. Recommendation: - Patient has a contact number available for emergencies. The signs and symptoms of potential delayed complications were discussed with thepatient. Return to normal activities tomorrow. Written discharge instructions were provided to thepatient. - Resume previous diet. - Continue pantoprazole 40 mg p.o. daily. AvoidNSAIDs. - Await pathology results. - Return to GI clinic as previously scheduled. Nabil Newman M.D. Nabil Newman M.D. 09/11/2024 11:22:46 AM . Number of Addenda: 0 Note Initiated On: 09/11/2024 10:15 AM Recognized by the [place] [employer] for promoting quality in endoscopy us Nabil Newman MD ENDOSCOPY PROCEDURES Final Resul t * Colonoscopy (09/11/2024 10:14 AM CDT) Anatomical Region Laterality Modality Other Narrative Procedure Note Nabil Newman MD - 09/11/2024 10:14 AM CDT [facility] GI ENDOSCOPY Patient Name: Sharda Stark Procedure Date: 09/11/2024 10:14 AM Date of : 1995 Admit Type: Outpatient Age: 29 Gender: Female Attending MD: Nabil Newman M.D. Room: [facility] ENDOSCOPY ROOM 03 Note Status: Finalized Procedure: Colonoscopy Indications: Change in bowel habits Referring MD: Providers: Nabil Newman M.D. Medicines: Monitored Anesthesia Care Complications: No immediate complications. Estimated Blood Loss: Estimated blood loss: none. Procedure: Pre-Anesthesia Assessment: - Prior to the procedure, a History and Physicalwas performed, and patient medications and allergieswere reviewed. The risks and benefits of the procedureand the sedation options and risks were discussed withthe patient. All questions were answered and informed consent was obtained. Patient identification and proposed procedure were verified. After reviewingthe risks and benefits, the patient was deemed in satisfactory condition to undergo the procedure.The anesthesia plan was to use monitored anesthesiacare (MAC). Immediately prior to administration of medications, the patient was re-assessed foradequacy to receive sedatives. The heart rate, respiratory rate, oxygen saturations, blood pressure, adequacyof pulmonary ventilation, and response to care were monitored throughout the procedure. The physical status of the patient was re-assessed after the procedure. The benefits, risks and alternatives of theprocedure and sedation were discussed and informed consentwas obtained. All questions were answered. Please referto the signed informed consent document in the medical record. The scope was passed under direct vision.The Colonoscope was introduced through the anus and advanced to the terminal ileum. The colonoscopy was performed without difficulty. The patient tolerated the procedure well. The quality of the bowel preparation was good. Scope withdrawal time was 8 minutes. Prep was administered in a split dose. Findings: The perianal and digital rectal examinations were normal. The terminal ileum appeared normal. Non-bleeding internal hemorrhoids were found during retroflexion. The hemorrhoids were small. The exam was otherwise without abnormality on direct and retroflexion views. Impression: - The examined portion of the ileum was normal. - Non-bleeding internal hemorrhoids. - The examination was otherwise normal on directand retroflexion views. - No specimens collected. Recommendation: - Patient has a contact number available for emergencies. The signs and symptoms of potential delayed complications were discussed with thepatient. Return to normal activities tomorrow. Written discharge instructions were provided to thepatient. - High fiber diet. - Continue present medications. - Await pathology results. - Repeat colonoscopy at age 47 for screeningpurposes. Nabil Newman M.D. Nabil Newman M.D. 09/11/2024 11:24:24 AM . Number of Addenda: 0 Note Initiated On: 09/11/2024 10:14 AM Recognized by the [employer] for promoting quality in endoscopy Nabil Newman MD ENDOSCOPY PROCEDURES Final Resul t * POCT hCG, urine (09/11/2024 9:53 AM CDT) HCG, ur, POC Negative Negative Lot Number [id number] QC Backgroud Clear Acceptable QC Control Line Acceptable Urine 09/11/2024 9:53 AM CDT Dave Zurita MD POINT OF CARE TEST ORDERABLES Final Result * eGFR (09/04/2024 10:51 AM NETWORK/TELECOM ENGINEER) eGFR >90 >=60 mL/min/1. 73 m2 Comment: Interpretive Data Reference Interval Normal >/= 90 mL/min/1.73m2 Mildly decreased* 60 - 89 mL/min/1.73m2 Mildly to moderately decreased 45 - 59 mL/min/1.73m2 Moderately to severely decreased 30 - 44 mL/min/1.73m2 Severely decreased 15 - 29 mL/min/1.73m2 Kidney Failure < 15 mL/min/1.73m2 *Relative to young adult level Estimated glomerular filtration rate is determined by the 2020 CKD-EPI equation recommended by the National Kidney Foundation (A Unifying Approach to GFR Estimation: Recommendations of the NKF-ASK Task Force on Reassessing the Inclusion of Race in Diagnosing Kidney Disease, JASN 2020). The CKD-EPI equation should not be used for patients with unstable renal function and has not been validated in children and those over 70. Current interpretive data was last reviewed 2021. Blood 09/04/2024 10:5 1 AM NETWORK/TELECOM ENGINEER 09/04/2024 11:06 AM NETWORK/TELECOM ENGINEER us Nabil Newman MD LAB BLOOD ORDERABLES Final Resul t [facility] [address] [facility] Department [place] [address] * Differential, auto (09/04/2024 10:51 AM NETWORK/TELECOM ENGINEER) Pathologist [facility] Neutrophil abs 5.6 1.5 - 6.5 K/cumm Imm gran abs 0.0 0.0 - 0.1 K/cumm [facility] Lymphocyte abs 1.7 0.8 - 3.3 K/cumm [facility] Monocyte abs 0.6 0.2 - 0.8 K/cumm [facility] Eosinophil abs 0.1 0.0 - 0.5 K/cumm [facility] Basophil abs 0.1 0.0 - 0.1 K/cumm [facility] Neutrophil pct 69.3 % [facility] Comment: Interpretive Data Percent cell count reference ranges are not reported, since discordance with absolute values may lead to misinterpretation of CBC data. Current Interpretive Data was last revised on 2017. Imm gran pct 0.4 % [facility] Comment: Interpretive Data Percent cell count reference ranges are not reported, since discordance with absolute values may lead to misinterpretation of CBC data. Current Interpretive Data was last revised on 2017. Lymphocyte pct 20.8 % [facility] Comment: Interpretive Data Percent cell count reference ranges are not reported, since discordance with absolute values may lead to misinterpretation of CBC data. Current Interpretive Data was last revised on 2017. Monocyte pct 7.3 % [facility] Comment: Interpretive Data Percent cell count reference ranges are not reported, since discordance with absolute values may lead to misinterpretation of CBC data. Current Interpretive Data was last revised on 2017. Eosinophil pct 1.5 % [facility] Comment: Interpretive Data Percent cell count reference ranges are not reported, since discordance with absolute values may lead to misinterpretation of CBC data. Current Interpretive Data was last revised on 2017. Basophil pct 0.7 % [facility] Comment: Interpretive Data Percent cell count reference ranges are not reported, since discordance with absolute values may lead to misinterpretation of CBC data. Current Interpretive Data was last revised on 2017. Blood 09/04/2024 10:5 1 AM NETWORK/TELECOM ENGINEER 09/04/2024 11:06 AM NETWORK/TELECOM ENGINEER Nabil Newman MD LAB BLOOD ORDERABLES Final Resul t Performing Organization Address [facility] de Phone Number [address] [place] [employer] [place] [address] * (ABNORMAL) CBC with auto differential (09/04/2024 10:51 AM NETWORK/TELECOM ENGINEER) WBC 8.1 3.8 - 9.9 K/cumm Hgb 12.4 11.9 - 15.5 g/dL [facility] Hct 38.2 35.6 - 45.5 % [facility] Plt 512(H) 150 - 400 K/cumm [facility] MPV 9.0(L) 9.1 - 12.3 fL [facility] RBC 4.28 3.90 - 5.20 M/cumm [facility] MCV 89.3 81.3 - 96.4 fL [facility] MCH 29.0 27.1 - 33.3 pg [facility] MCHC 32.5 32.3 - 35.7 g/dL [facility] RDW CV 13.0 11.1 - 14.9 % [facility] RDW SD 42.1 35.7 - 48.1 fL [facility] NRBC abs 0.00 0.00 - 0.01 K/cumm [facility] Blood 09/04/2024 10:5 1 AM NETWORK/TELECOM ENGINEER 09/04/2024 11:06 AM NETWORK/TELECOM ENGINEER Nabil Newman MD LAB BLOOD ORDERABLES Final Resul t Performing Organization Address [facility] de Phone Number [address] [place] [address] * Gliadin antibody, IgA (09/04/2024 10:51 AM NETWORK/TELECOM ENGINEER) Anti-gliadin, IgA 4.8 <=14.9 units/mL Comment: Interpretive data Negative: <15 units/mL Positive: > or equal to 15 units/mL Current interpretive data was last revised on 2016. Testing performed by: [facility], [address] [place]., [address] Blood 09/04/2024 10:5 1 AM NETWORK/TELECOM ENGINEER 09/04/2024 2:13 PM NETWORK/TELECOM ENGINEER us Nabil Newman MD LAB BLOOD ORDERABLES Final Resul t Performing Organization Address [facility] de Phone Number [address] [place] [address] * Tissue transglutaminase IgA (TGG-IgA Ab) (09/04/2024 10:51 AM NETWORK/TELECOM ENGINEER) TTG ab, IgA <0.5 <=14.9 units/mL Comment: Interpretive data Negative: <15 units/mL Positive: > or equal to 15 units/mL Current interpretive data was last revised on 2016. Testing performed by: [facility], [address] [place]., [address] Blood 09/04/2024 10:5 1 AM NETWORK/TELECOM ENGINEER 09/04/2024 2:10 PM NETWORK/TELECOM ENGINEER us Nabil Newman MD LAB BLOOD ORDERABLES Final Resul t Performing Organization Address [facility] Co de Phone Number [address] [place] [address] * Lipase (09/04/2024 10:51 AM NETWORK/TELECOM ENGINEER) Lipase 40 10 - 99 Units/L Blood 09/04/2024 10:5 1 AM NETWORK/TELECOM ENGINEER 09/04/2024 11:06 AM NETWORK/TELECOM ENGINEER us Nabil Newman MD LAB BLOOD ORDERABLES Final Resul t Performing Organization Address [facility]/ZIP Co de Phone Number MARIYA [address] [facility] [place] [employer] [address] * Comprehensive metabolic panel (09/04/2024 10:51 AM NETWORK/TELECOM ENGINEER) Sodium 142 135 - 145 mmol/L Potassium, pl 4.1 3.3 - 4.9 mmol/L [facility] Chloride 107 97 - 110 mmol/L [facility] CO2 24 22 - 32 mmol/L [facility] Anion gap 11 2 - 15 mmol/L [facility] BUN 9 6 - 25 mg/dL [facility] Creatinine 0.73 0.60 - 1.10 mg/dL [facility] Glucose 89 70 - 199 mg/dL [facility] Comment: Interpretive Data Fasting glucose >/= 126 mg/dl is diagnostic for diabetes. Fasting is defined as no caloric intake for at least 8 hours. Fasting glucose between 100 mg/dl to 125 mg/dl is diagnostic of prediabetes. In a patient with classic symptoms of hyperglycemia or hyperglycemic crisis, a random glucose >/= 200 mg/dl is diagnostic for diabetes. In the absence of unequivocal hyperglycemia, results should be confirmed by repeat testing. The classification and Diagnosis of Diabetes Diabetes Care 202; 46: S19-S40. Current interpretive data was last revised 2022. Calcium 9.5 8.5 - 10.3 mg/dL [facility] Bilirubin, total 0.2 0.1 - 1.2 mg/dL [facility] Protein, pl 7.6 6.5 - 8.5 g/dL [facility] Albumin 4.1 3.5 - 5.0 g/dL [facility] Alk phos 70 40 - 130 Units/L [facility] ALT 11 7 - 45 Units/L [facility] AST 21 10 - 45 Units/L [facility] Blood 09/04/2024 10:5 1 AM NETWORK/TELECOM ENGINEER 09/04/2024 11:06 AM NETWORK/TELECOM ENGINEER Nabil Newman MD LAB BLOOD ORDERABLES Final Resul t Performing Organization Address [facility]/ZIP Co de Phone Number MARIYA [address] [facility] Department [place] [address] * Horizon 106 carrier screen - Miscellaneous Test (08/31/2024) Miscellaneous 08/31/2024 Bridget Cheney MD LAB BLOOD ORDERABLES Fin al Result EXTERNAL LAB * US Abdomen Complete (08/25/2024 9:57 AM NETWORK/TELECOM ENGINEER) Anatomical Region Laterality Modality Abdomen N/A Ultrasound 08/25/2024 10:0 4 AM NETWORK/TELECOM ENGINEER Impressions 08/25/2024 10:14 AM NETWORK/TELECOM ENGINEER Normal abdominal sonogram. Dictated by: Navya Jenkins M.D. The radiology attending physician has personally reviewed this study, and had reviewed and/or edited this written report and agrees with it. Electronically signed by: Jane Patton M.D. Narrative 08/25/2024 10:14 AM NETWORK/TELECOM ENGINEER EXAMINATION: COMPLETE ABDOMINAL SONOGRAM HISTORY: 29-year-old female with chronic lower abdominal pain and worsening constipation. COMPARISON: No relevant comparison examination. FINDINGS: Liver: The liver is normal in size. The echotexture is normal. The echogenicity is normal. There is no surface nodularity. No focal solid lesions are visualized. Gallbladder: The gallbladder is normal in size. There are no stones or sludge within the gallbladder. There is no gallbladder wall thickening. Bile Duct: There is no intrahepatic bile duct dilatation. The diameter of the common duct is 2 mm in the proximal segment and 3 mm in the mid segment. Kidneys: There is no hydronephrosis in the visualized portions of the kidneys. Pancreas: The visualized portions of the pancreas demonstrate no focal lesions. Spleen: The spleen is normal in size. Aorta: The proximal aorta is normal. Inferior vena cava: The proximal IVC is normal. Other Findings: There is no ascites. Procedure Note Jane Patton MD - 08/25/2024 EXAMINATION: COMPLETE ABDOMINAL SONOGRAM HISTORY: 29-year-old female with chronic lower abdominal pain and worsening constipation. COMPARISON: No relevant comparison examination. FINDINGS: Liver: The liver is normal in size. The echotexture is normal. The echogenicity is normal. There is no surface nodularity. No focal solid lesions are visualized. Gallbladder: The gallbladder is normal in size. There are no stones or sludge within the gallbladder. There is no gallbladder wall thickening. Bile Duct: There is no intrahepatic bile duct dilatation. The diameter of the common duct is 2 mm in the proximal segment and 3 mm in the mid segment. Kidneys: There is no hydronephrosis in the visualized portions of the kidneys. Pancreas: The visualized portions of the pancreas demonstrate no focal lesions. Spleen: The spleen is normal in size. Aorta: The proximal aorta is normal. Inferior vena cava: The proximal IVC is normal. Other Findings: There is no ascites. IMPRESSION: Normal abdominal sonogram. Dictated by: Navya Jenkins M.D. The radiology attending physician has personally reviewed this study, and had reviewed and/or edited this written report and agrees with it. Electronically signed by: Jane Patton M.D. us Nabil Newman MD IM US PROCEDURES Final Result * CTA Heart and Coronary Arteries W Morphology when Performed (08/21/2024 2:41 PM NETWORK/TELECOM ENGINEER) Anatomical Region Laterality Modality Chest N/A Computed Tomogra phy 08/21/2024 3:05 PM NETWORK/TELECOM ENGINEER Impressions 08/21/2024 3:33 PM NETWORK/TELECOM ENGINEER 1. Calculated calcium score of 0. 2. No atherosclerotic disease. 3 Normal left ventricular size and function. Ejection Fraction 62% without regional wall motion abnormalities. Dictated by: Kendall Lauren M.D. The radiology attending physician has personally reviewed this study, and had reviewed and/or edited this written report and agrees with it. Electronically signed by: Brian Pederson M.D. Narrative 08/21/2024 3:33 PM NETWORK/TELECOM ENGINEER EXAMINATION: CORONARY CT ANGIOGRAM HISTORY: Abnormal stress test TECHNIQUE: CT angiography of the coronary arteries was performed after the administration of 95 mL of Optiray 350. Images were also obtained precontrast for the purposes of calcium scoring. No metoprolol was administered intravenously prior to the examination. The patient's heart rate and blood pressure at the time of the examination were 62 beats per minute and 110/69 mmHg. Images were transferred to a 3D workstation for additional post-processing. FINDINGS: The coronary arteries are right system dominant. Normal origins. Right coronary system: Widely patent. No atherosclerotic disease. Left coronary system: Widely patent. No atherosclerotic disease. The calculated calcium score is 0. Other findings: None. Lungs are clear. Procedure Note Brian Pederson MD - 08/22/2024 EXAMINATION: CORONARY CT ANGIOGRAM HISTORY: Abnormal stress test TECHNIQUE: CT angiography of the coronary arteries was performed after the administration of 95 mL of Optiray 350. Images were also obtained precontrast for the purposes of calcium scoring. No metoprolol was administered intravenously prior to the examination. The patient's heart rate and blood pressure at the time of the examination were 62 beats per minute and 110/69 mmHg. Images were transferred to a 3D workstation for additional post-processing. FINDINGS: The coronary arteries are right system dominant. Normal origins. Right coronary system: Widely patent. No atherosclerotic disease. Left coronary system: Widely patent. No atherosclerotic disease. The calculated calcium score is 0. Other findings: None. Lungs are clear. IMPRESSION: 1. Calculated calcium score of 0. 2. No atherosclerotic disease. 3 Normal left ventricular size and function. Ejection Fraction 62% without regional wall motion abnormalities. Dictated by: Kendall Lauren M.D. The radiology attending physician has personally reviewed this study, and had reviewed and/or edited this written report and agrees with it. Electronically signed by: Brian Pederson M.D. Karly Flores MD IMG CT PROCEDURES Edite d * POCT creatinine (08/21/2024 2:19 PM NETWORK/TELECOM ENGINEER) Creatinine POC 0.7 0.6 - 1.1 mg/dL Blood 08/21/2024 2:19 PM NETWORK/TELECOM ENGINEER 08/21/2024 2:19 PM NETWORK/TELECOM ENGINEER Karly Flores MD LAB POCT ORDERABLES - D EVICE Final Result [facility] Department [place] [address] * NM MPI SPECT (Rest and/or Stress) Multiple Studies (07/07/2024 11:51 AM NETWORK/TELECOM ENGINEER) Anatomical Region Laterality Modality Body N/A Nuclear Medicine 07/07/2024 8:40 AM NETWORK/TELECOM ENGINEER Narrative 07/07/2024 12:48 PM NETWORK/TELECOM ENGINEER [facility] Cardiology [address] [facility] [address], [place] [address] [address] [facility] [address], [place] [address] P:[phone] P:[phone] MPI Imaging Report Patient Name: SHARDA STARK K : 1995 Study Date: 07/07/2024 8:40:18 AM Gender: F Tech: [facility] Location: Testing Center Ref Provider: KARLY FLORES Height(Cm): 154.9 BSA: Weight(Kg): 81.6 BMI: 34.01 Order Provider: KARLY FLORES - PHYSICIAN: Referring Physician: Dr. Mcqueen. HCG Physician: Karly Flores M.D., F.A.C.C. Interpreting Physician: Alfred Lutz M.D. Stress Supervision: Alfred Lutz M.D. PROCEDURES: Pharmacologic SPECT Report: Myocardial perfusion imaging with Tc99m Sestamibi SPECT at rest and stress post regadenoson (Lexiscan) infusion. INDICATIONS: R06.02 Shortness of breath and R07.89 Other chest pain. FINDINGS: Procedural Findings: One day rest/stress was used. Tc99m Sestamibi injected IV at rest was 10.3 millicuries 32.2 millicuries of Tc99m Sestamibi injected IV during Lexiscan stress Lexiscan 0.4mg administered IV over 10 seconds. Patient had no symptoms during stress test. Baseline heart rate was 70 BPM Maximum Heart Rate Achieved was: 113 BPM Baseline blood pressure was 110/60 mmHg Post Stress Blood Pressure was 110/60 mmHg Termination: Protocol complete. Resting ECG: Normal sinus rhythm. Post EC mm or less upsloping anterolateral ST depression with worsening T wave inversion. Findings are borderline/equivocal for ischemia. Arrhythmia: No arrhythmias seen. Perfusion Findings: Abnormal perfusion imaging - see below. Technical quality of study is excellent. Prone imaging was not performed. Left ventricle cavity size at rest is normal. Left ventricle cavity size with stress is unchanged. A TID of 0.97 was automatically calculated. defect 1: Size is medium. Severity is mild. Location of defect is in the mid anterior segment, mid anterolateral segment and apical lateral segment. Reversibility is full. Type of defect is ischemia. LV Function: Global left ventricular function is normal. Left ventricular ejection fraction is 59 %. CONCLUSIONS: 1 mm or less upsloping anterolateral ST depression with worsening T wave inversion. Findings are borderline/equivocal for ischemia. Global left ventricular function is normal. Left ventricular ejection fraction is 59 %. Size is medium. Severity is mild. Location of defect is in the mid anterior segment, mid anterolateral segment and apical lateral segment. Reversibility is full. Type of defect is ischemia. Breast attenuation artifact cannot be excluded. Myocardial perfusion imaging is abnormal. Prone imaging could not be performed. Consider Coronary CTA or Coronary angiogram. Electronically Signed By: Dave Lutz MD 07/07/2024 12:48:28 PM NETWORK/TELECOM ENGINEER Electronically Signed By: Dave Lutz MD 07/07/2024 12:48:28 PM NETWORK/TELECOM ENGINEER Procedure Note Dave Lutz MD - 07/07/2024 [facility] Cardiology [address], [place] [address] [address], [place] [address] P:[phone] P:[phone] MPI Imaging Report Patient Name: SHARDA STARK K : 1995 Study Date: 07/07/2024 8:40:18 AM Gender: F Tech: [facility] Location: Testing Center Ref Provider: KARLY FLORES Height(Cm): 154.9 BSA: Weight(Kg): 81.6 BMI: 34.01 Order Provider: KARLY FLORES - PHYSICIAN: Referring Physician: Dr. Mcqueen. HCG Physician: Karly Flores M.D., F.A.C.C. Interpreting Physician: Alfred Lutz M.D. Stress Supervision: Alfred Lutz M.D. PROCEDURES: Pharmacologic SPECT Report: Myocardial perfusion imaging with Tc99m Sestamibi SPECT at rest and stresspost regadenoson (Lexiscan) infusion. INDICATIONS: R06.02 Shortness of breath and R07.89 Other chest pain. FINDINGS: Procedural Findings: One day rest/stress was used. Tc99m Sestamibi injected IV at rest was 10.3 millicuries 32.2 millicuries of Tc99m Sestamibi injected IV during Lexiscan stress Lexiscan 0.4mg administered IV over 10 seconds. Patient had no symptoms during stress test. Baseline heart rate was 70 BPM Maximum Heart Rate Achieved was: 113 BPM Baseline blood pressure was 110/60 mmHg Post Stress Blood Pressure was 110/60 mmHg Termination: Protocol complete. Resting ECG: Normal sinus rhythm. Post EC mm or less upsloping anterolateral ST depression with worsening T waveinversion. Findings are borderline/equivocal for ischemia. Arrhythmia: No arrhythmias seen. Perfusion Findings: Abnormal perfusion imaging - see below. Technical quality of study isexcellent. Prone imaging was not performed. Left ventricle cavity size at rest is normal.Left ventricle cavity size with stress is unchanged. A TID of 0.97 was automaticallycalculated. defect 1: Size is medium. Severity is mild. Location of defect is in the midanterior segment, mid anterolateral segment and apical lateral segment. Reversibility is full.Type of defect is ischemia. LV Function: Global left ventricular function is normal. Left ventricular ejectionfraction is 59 %. CONCLUSIONS: 1 mm or less upsloping anterolateral ST depression with worsening T waveinversion. Findings are borderline/equivocal for ischemia. Global left ventricular function is normal. Left ventricular ejectionfraction is 59 %. Size is medium. Severity is mild. Location of defect is in the midanterior segment, mid anterolateral segment and apical lateral segment. Reversibility is full.Type of defect is ischemia. Breast attenuation artifact cannot be excluded. Myocardial perfusion imaging is abnormal. Prone imaging could not be performed. Consider Coronary CTA or Coronaryangiogram. Electronically Signed By: Dave Lutz MD 07/07/2024 12:48:28 PM NETWORK/TELECOM ENGINEER Electronically Signed By: Dave Lutz MD 07/07/2024 12:48:28 PM NETWORK/TELECOM ENGINEER [facility] James Flores MD IM NM PROCEDURES Final Result * PAP SMEAR WITH HPV (03/14/2020) Scribed Pap Smear w/HPV Normal Historical Provider HEALTH MAINTENANCE Final Result from Last 3 Months or Most Recently Relevant to Health Maintenance Insurance [facility] Care Teams Corporate Accounting Manager Relationship Specialty Start Date End Date Romeo Mcqueen MD PCP - General Family Medicine 02/16/22 Car Romero MD [address] [place], [place] [id number] Consulting Physician Pain Management 10/17/23 Evans Mota MD [address] [facility] [address] [place] [address] Consulting Physician Neurology 01/25/24 Nolan Robbins MD [address] [facility] [address] [place] [address] Consulting Physician Neurology 01/25/24
--- OUTSIDE RECORDS SUMMARY | 2024-09-23 01:14 | XMS_ITS | Encounter Summary ---
Author Organization [facility] Healthcare Address [address] [place] [address] Care Team Providers Care Cut Off Man Name Role Phone Romeo Mcqueen MD Primary Care Provider [phone] Car Romero MD Unavailable [phone] Evans Mota MD Unavailable Nolan Robbins MD Unavailable Encounter Details Date Type Department Care Team (Late st Contact Info) Description 09/12/2024 Results Follow-Up [facility] Medical Group Gastroenterology at [address] [place] [address] Nabil Newman MD [address] [place] [address] [address] [place] [address] Social History Tobacco Use Types [...] on file Legal 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 Gender Identity Not on file Sexual Orientation [...] on filedocumented in this encounter Care Teams Cut Off Man Relationship Specialty Start Date End Date Romeo Mcqueen MD PCP - General Family Medicine 02/16/22 Car Romero MD [address] [place] [address] Consulting Physician Pain Management 10/17/23 Evans Mota MD [address] [place] [address] Consulting Physician Neurology 01/25/24 Nolan Robbins MD [address] [facility] [address] [place] [address] Consulting Physician Neurology 01/25/24 documented as of this encounter
--- OUTSIDE RECORDS SUMMARY | 2024-09-23 01:14 | XMS_ITS | Encounter Summary ---
Author Organization [facility] Address [address] [place] [address] Care Team Providers Care Rotary Bar Operator Name Role Phone Romeo Mcqueen MD Primary Care Provider [phone] Reason for Visit * Reason Onset Date Comments Appointment 05/14/2023 Medication Problem 05/14/2023 Encounter Details Date Type Department Care Team (Late st Contact Info) Description 05/14/2023 Telephone [facility] - Dermatology [address] [place] [address], [place] [address] Nga Mccullough MD [address] [place] [address] [place] [address] Appointment; Medication Problem Social History Tobacco Use Types Packs/Day Years Used Date Smoking Tobacco: Never Smokeless Tobacco: Never Alcohol Use Standard Drinks/Week Comments No 0 [...] on file documented as of this encounter Miscellaneous Notes * Telephone Encounter - Cassandra Field - 07/23/2023 3:13 PM CST Tanya from [facility] is calling in regards of pt a cancelled script of clobetasol 0.05%. She statesthey reached out to pt and pt says she still uses medication. [facility] would like to confirm the cancellation [phone] ITURE STAINER * Telephone Encounter - Gifty Marino - 05/14/2023 11:18 AM CST Pt is concerned about her head hurting where she had her biopsy and accidentally missed her appointment and is needing to be seen soon as possible she has been scheduled for next available ITURE STAINER documented in this encounter Plan of Treatment Upcoming Encounters Date Type Department Care Team (Late st Contact Info) Description 04/20/2025 9:00 AM CDT Office Visit [facility] - Dermatology [address] [place] [address], [place] [phone] Nga Mccullough MD [address] [place] [address] [address] [place] [id number] documented as of this encounter Visit Diagnoses Not on filedocumented in this encounter Care Teams Rotary Bar Operator Relationship Specialty Start Date End Date Romeo Mcqueen MD [address] [place] [address] [place] [id number] PCP - General Family Medicine 11/20/22 documented as of this encounter
--- OUTSIDE RECORDS SUMMARY | 2024-09-23 01:14 | XMS_ITS | Clinical Summary ---
Author Organization [facility] at the Medical Office Building Address [address] [place] [phone] Care Team Providers Care Gun Stock Checker Name Role Phone Romeo Mcqueen MD Primary Care Provider [phone] Car Romero MD Unavailable [phone] Evans Mota MD Unavailable Nolan Robbins MD Unavailable Allergies Active Allergy Reactions Criticality Noted Date Comments Gabapentin Syncope High 09/11/2024 Dimethyl Fumarate Hives Medium 08/09/2024 Medications ketoconazole (NIZORAL) 2 % shampoo 04/06/20 22 Active clobetasoL (TEMOVATE) 0.05 % external [...] week 12 capsule 3 02/01/20 24 Active em964-iupx-xkvnv acid 27-800 mg-mcg tablet Take 1 tablet [...] mg total) by mouth nightly 30 tablet 11 06/20/20 24 025 Active fremanezumab-vfr m (Ajovy [...] total) by mouth daily 4 tablet 07/28/19 25 025 Discontin ued(Stop Taking at Discharge ) Active Problems Problem Noted Date Diagnosed Date Change in bowel habits 07/28/2024 Assessment & Plan (07/28/2024 8:56 AM SHIPPING AND RECEIVING MATERIAL HANDLER): Worsening constipation over the past few years. [...] 07/28/2024 Assessment & Plan (07/28/2024 8:57 AM SHIPPING AND RECEIVING MATERIAL HANDLER): Recent abnormal stress test, noted plans for coronary CTA. -We will request cardiac clearance prior EGD and colonoscopy Chronic migraine without aur a without status migrainosus, not intractable 11/17/2023 Overview (11/17/2023): Please see my note 11/17/2023 for details regarding headache history. Assessment & Plan (06/20/2024 1:48 PM SHIPPING AND RECEIVING MATERIAL HANDLER): The patient has chronic migraine, as well [...] will be seeing MS provider here at [facility]. Assessment & Plan (01/05/2024 1:32 PM CDT): [...] noted. Assessment & Plan (07/27/2023 11:23 AM SHIPPING AND RECEIVING MATERIAL HANDLER): Given ongoign pain in the Ts will get updated XR. Intractable chronic migraine without aura and without status migrainosus 07/12/2023 Assessment & Plan (07/18/2024 3:28 PM SHIPPING AND RECEIVING MATERIAL HANDLER): The patient has a long history of [...] 04/12/2022 Assessment & Plan (07/28/2024 8:56 AM SHIPPING AND RECEIVING MATERIAL HANDLER): Chronic constipation, getting progressively worse over the past few years. Patient has failed qztp-ryx-mnuhvyy laxatives like MiraLax. Takes Linzess p.r.n. -High-fiber [...] None Assessment & Plan (07/18/2024 3:32 PM SHIPPING AND RECEIVING MATERIAL HANDLER): The patient is presenting to establish care [...] persists. She was following up with a supervisor fusing room for further evaluation of her GI issues [...] back pain and balance difficulties. Continue vitamin-D 68566 units weekly. We will Assessment & Plan (03/08/2024 4:56 PM CDT): Continue duloxetine. Continue to follow with neurology. Assessment & Plan (12/10/2023 9:02 AM CDT): Following Dr. Massey as well as Dr. Liu. Reports she may be switching from Dr. Liu as he may not be in network. Duloxetine remains the most helpful option. Assessment & Plan (07/27/2023 11:22 AM SHIPPING AND RECEIVING MATERIAL HANDLER): Continue dosing of duloxetine. Following with neurology. [...] f/u imaging will be. Referred to PT. REGIONAL EDUCATION COORDINATOR demyelination 02/18/2021 Chronic tonsillitis 01/28/2021 Assessment & [...] Resolve Assessment & Plan (07/28/2024 8:55 AM SHIPPING AND RECEIVING MATERIAL HANDLER): Chronic lower abdominal pain, radiates to the [...] Add to Current Problems: NO ProblemStatus: Resolve Encounters Date Type Department Care Team Description 09/19/19 Telephone [facility] Gastroenterology at [address] [place] [address] Nabil Newman MD 09/16/19 25 Telephone [facility] Obstetrics and Gynecology [address] [facility] Health 7th Floor [address] [place] [phone] Nicky Green CGC 09/14/19 8:06 PM CDT - 09/14/19 11:59 PM CDT Hospital Encounter [facility] [address] [place] [id number] Multiple sclerosis (HCC) Discharge Disposition: Discharge to home or self care 09/13/19 Results Follow-Up [facility] Gastroenterology at [address] [place] [address] Nabil Newman MD 09/12/19 10:58 AM CDT Anesthesia Event [facility] [address] [place] [address] Liliam Blunt MD 09/12/19 9:30 AM CDT - 09/12/19 10:00 AM CDT Surgery [facility] [address] [place] [address] Nabil Newman MD ESOPHAGOGASTRODUODENOSCOPY BIOPSY 09/12/19 9:02 AM CDT - 09/12/19 12:12 PM CDT Hospital Encounter [facility] Lab [address] [place] [address] Nabil Newman MD Abdominal pain; Change in bowel habits; Chronic idiopathic constipation Discharge Disposition: Discharge to home or self care 09/05/19 10:30 AM SHIPPING AND RECEIVING MATERIAL HANDLER Lab [facility] Lab [address] [place] [address] Abdominal pain 09/05/19 Telephone [facility] [address] [facility] [address] [place] [phone] Kelly Sharma [facility] 09/01/19 Telephone [facility] [address] [facility] [address] [place] [address] Nael Cunningham MD 09/01/19 Telephone [facility] [address] [facility] [address] [place] [phone] Raphael Cedillo MA 08/31/19 11:00 AM SHIPPING AND RECEIVING MATERIAL HANDLER Procedure visit [facility] Obstetrics and Gynecology [facility] 7th [place] [address] Genetic screening (Primary Dx) 08/31/19 10:00 AM SHIPPING AND RECEIVING MATERIAL HANDLER Clinical Support [facility] Ob[facility]etrics [facility]ne[facility] 7th Floor [address] [place] [phone] Encounter of female for testing for genetic disease carrier status for procreative management (Primary Dx); Encounter for preconception consultation; Encounter for procreative genetic counseling 08/31/19 Orders Only [facility] Gastroenterology at [place] [address] [facility] [address] [place] [address] Nabil Newman MD Abdominal pain (Primary Dx); Change in bowel habits; Chronic idiopathic constipation 08/31/19 Orders Only [facility] Obstetrics and Gynecology [address] [facility] Health 7th Floor [address] [place] [address] Nicky Green [facility] Encounter of female for testing for genetic disease carrier status for procreative management (Primary Dx) 08/28/19 Telephone [facility] [address] [facility] [address], [place] [phone] Karly Flores MD Pre Op form GI 08/25/19 9:00 AM SHIPPING AND RECEIVING MATERIAL HANDLER - 08/25/19 11:59 PM SHIPPING AND RECEIVING MATERIAL HANDLER Hospital Encounter [facility] ([facility]) [address] [place] [address] Abdominal pain Discharge Disposition: Discharge to home or self care 08/25/19 Results Follow-Up [facility] Gastroenterology at [address] [place] [phone] Nabil Newman MD 08/24/19 Results Follow-Up [facility] [address] [facility] [address] [place] [address] Karly Flores MD 08/22/19 Telephone [facility] [address] [facility] [address] [place] [address] Liliam Mcbride RN 08/21/19 1:49 PM SHIPPING AND RECEIVING MATERIAL HANDLER - 08/21/19 11:59 PM SHIPPING AND RECEIVING MATERIAL HANDLER Hospital Encounter [facility] ([facility]) [address] [place] [address] Abnormal cardiovascular stress test; Other chest pain Discharge Disposition: Discharge to home or self care 08/17/19 Telephone [facility] Gastroenterology at [address] [place] [phone] Nabil Newman MD Scheduling Appointments 08/09/19 8:00 AM SHIPPING AND RECEIVING MATERIAL HANDLER Telemedicine [facility] Obstetrics and Gynecology [address] [facility] [address] [place] [phone] Encounter for preconception consultation (Primary Dx); Chronic migraine without aura without status migrainosus, not intractable; Multiple sclerosis (HCC) 08/08/19 Documentation [facility] [address] [place] [address] Tabitha Haque MD 07/28/19 8:45 AM SHIPPING AND RECEIVING MATERIAL HANDLER Office Visit [facility] Gastroenterology at [address] [place] [phone] Nabil Newman MD Change in bowel habits (Primary Dx); Abdominal pain; Chronic idiopathic constipation; Abnormal stress test 07/18/19 2:00 PM SHIPPING AND RECEIVING MATERIAL HANDLER Office Visit [facility] [address] [facility] [address] [place] [address] Nael Cunningham MD Multiple sclerosis (HCC) (Primary Dx); Multiple sclerosis (HCC); Intractable chronic migraine without aura and without status migrainosus 07/18/19 Telephone [facility] [address] [facility] 7th Floor [address] [place] [address] Ana West RN 07/11/19 Telephone [facility] Cardiology [address] [place] [address] [place] [phone] Karly Flores MD 07/07/19 8:15 AM SHIPPING AND RECEIVING MATERIAL HANDLER Ancillary Procedure [facility] Medical [facility] Cardiology [address] [place] [address] [place] [phone] Shortness of breath; Other chest pain from Last 3 Months Immunizations Immunization Administration Dates Next Due DTP / HiB 1995 DTaP 01/02/2002,12/23/2000,04/23/2000 HPV, Quadrivalent 09/03/2014 HPV9 08/07/2015 Hep A, Pediatric 12/31/2005,04/21/2005 Hep B / HiB 04/23/2000 Hep B, Adolescent or Pediatric 12/23/2000,1997 IPV 01/02/2002, 1,12/23/2000,04/23/2000,0 1997 Influenza, Unspecified 04/27/2024(Deferr ed: Patient decision),06/01/2023(Deferred: Patient Refused),03/05/2022(Deferred: Patient decision) MMR 01/02/2002,04/23/2000 Meningococcal MCV4P (Menactra) 01/08/2014 Tdap 01/09/2019,01/09/2019,08/07/2015 Varicella 08/07/2015,04/23/2000 Medical History Medical History Date Comments Migraine Light sensitivity Painful breathing Abdominal pain Constipation Muscle pain Bruises easily Multiple sclerosis (HCC) Anxiety Fatigue Autoimmune disease 2020 Family History Medical History Relation Name Comments No Known Problems Father Breast cancer Maternal Grandmother No Known Problems Mother Relation Name Status Comments Father Alive Maternal Grandmother Mother Alive Social History Tobacco Use Types [...] on file Legal Sex Female 7:38 PM SHIPPING AND RECEIVING MATERIAL HANDLER Gender Identity Not on file Sexual Orientation Not on file Obstetrics History Para Term AB IAB SAB Ectopic Multiple Livin g Live Births 0 0 0 0 0 0 0 0 0 0 0 Last Filed Vital Signs Vital Sign Reading [...] cm (5' 1 ) 07/28/2024 8:34 AM SHIPPING AND RECEIVING MATERIAL HANDLER Body Mass Index 34.01 07/28/2024 8:34 AM SHIPPING AND RECEIVING MATERIAL HANDLER Plan of Treatment Health Maintenance Due Date Last Done Comments Hepatitis C Screening 1995 HPV Vaccines (3 - 3-dose series) 10/30/2015 08/07/2015, 09/03/2014 Cervical Cancer Screening 03/14/2021 03/14/2020 Influenza Vaccine (#1) 2025 Postp oned from 03/05/2024 (Patient declined, but will receive in the future) Depression Screening 01/24/2025 01/25/2024, 01/25/2024, 02/19/2023, Additional history exists Regular Well Visit/Exam 18-64 04/27/2025 04/27/2024, 02/19/2023, 02/16/2022, Additional history exists DTaP/Tdap/Td Vaccine (8 - Td or Tdap) 01/09/2029 01/09/2019, 01/09/2019, 08/07/2015, Additional history exists Hepatitis B Screening Completed 12/23/2000 , 04/23/2000, 1995 Varicella Vaccines Discontinued 08/07/2015, 04/23/2000 Pneumococcal vaccine <65 Aged Out No longer eligible based on [...] AM CDT EGFR Routine 09/04/2024 10:51 AM SHIPPING AND RECEIVING MATERIAL HANDLER Abdominal pain DIFFERENTIAL AUTO Routine 09/04/2024 10:51 AM SHIPPING AND RECEIVING MATERIAL HANDLER Abdominal pain GLIADIN ANTIBODY, IGA Routine 09/04/2024 10:51 AM SHIPPING AND RECEIVING MATERIAL HANDLER Abdominal pain TISSUE TRANSGLUTAMINASE, IGA Routine 09/2024 10:51 AM SHIPPING AND RECEIVING MATERIAL HANDLER Abdominal pain CBC WITH AUTO DIFFERENTIAL Routine 09/04 10:51 AM SHIPPING AND RECEIVING MATERIAL HANDLER Abdominal pain COMPREHENSIVE METABOLIC PANEL Routine 10:51 AM SHIPPING AND RECEIVING MATERIAL HANDLER Abdominal pain LIPASE Routine 09/04/2024 10:51 AM SHIPPING AND RECEIVING MATERIAL HANDLER Abdominal pain CELIAC DISEASE ANTIBODY SCREEN Routine 0 09/04/2024 10:51 AM SHIPPING AND RECEIVING MATERIAL HANDLER Abdominal pain MISCELLANEOUS LAB TEST Routine 08/31/2024 Encounter of female for testing for genetic disease carrier status for procreative management US ABDOMEN COMPLETE Schedule Routine, Read Routine (OP Routine) 08/25/2024 9:57 AM SHIPPING AND RECEIVING MATERIAL HANDLER Abdominal pain CT HEART MORPHOLOGY AND CORONARY ARTERIES W CONTRAST Schedule Routine, Read Routine (OP Routine) 08/21/2024 2:41 PM SHIPPING AND RECEIVING MATERIAL HANDLER Abnormal cardiovascular stress test Other chest pain POCT CREATININE - DEVICE Routine 025 2:19 PM SHIPPING AND RECEIVING MATERIAL HANDLER NM MPI SPECT (REST AND/OR STRESS) MULTIPLE STUDIES Schedule Routine, Read Routine (OP Routine) 07/07/2024 11:51 AM SHIPPING AND RECEIVING MATERIAL HANDLER Shortness of breath Other chest pain HM [...] intravenous contrast using the standard protocol. Scanner: [facility] Field Strength: 3T Contrast information: 16 mL Gadoterate Meglumine IV The post-contrast brain scan was performed approximately 12 minutes after IV contrast administration. COMPARISON: MRI cervical spine dated 01/02/2023, MRI of brain dated 03/02/2023 FINDINGS: BRAIN: There are a few unchanged periventricular T2/FLAIR white matter hyperintensities. New Brain T2 Lesions: None. T1 Hypointense Black Holes : 1 Enhancing Brain Lesions: None. T2/FLAIR Newfields of Disease: Mild, less than 10 typical [...] : 1 Enhancing Brain Lesions: None. T2/FLAIR Newfields of Disease: Mild, less than 10 typical [...] it. Electronically signed by: Asaf Singer M.D. us Nael Cunningham MD IM MRI PROCEDURES Fi [...] intravenous contrast using the standard protocol. Scanner: [facility] Field Strength: 3T Contrast information: 16 mL Gadoterate Meglumine IV The post-contrast brain scan was performed approximately 12 minutes after IV contrast administration. COMPARISON: MRI cervical spine dated 01/02/2023, MRI of brain dated 03/02/2023 FINDINGS: BRAIN: There are a few unchanged periventricular T2/FLAIR white matter hyperintensities. New Brain T2 Lesions: None. T1 Hypointense Black Holes : 1 Enhancing Brain Lesions: None. T2/FLAIR Newfields of Disease: Mild, less than 10 typical [...] intravenous contrast using the standard protocol. Scanner: [facility] Field Strength: 3T Contrast information: 16 mL Gadoterate Meglumine IV The post-contrast brain scan was performed approximately 12 minutes after IV contrast administration. COMPARISON: MRI cervical spine dated 01/02/2023, MRI of brain dated 03/02/2023 FINDINGS: BRAIN: There are a few unchanged periventricular T2/FLAIR white matter hyperintensities. New Brain T2 Lesions: None. T1 Hypointense Black Holes : 1 Enhancing Brain Lesions: None. T2/FLAIR Newfields of Disease: Mild, less than 10 typical [...] by: Asaf Singer M.D. Nael Cunningham MD IMG MRI PROCEDURES Fi nal Result * Surgical pathology (09/11/2024 11:04 AM CDT) Tissue (Duodenum, Biopsy) 09/11/2024 11:04 AM CDT Tissue (Gastric/Stomach biopsy) 09/11/2024 11:03 AM CDT Tissue (Esophageal biopsy) 09/11/2024 11:05 AM CDT Narrative PATHOLOGY [facility] - 09/12/2024 2:14 PM CDT [facility] Department of Pathology [address] [place] [address] Note to Patients: This report may contain [...] : 1995 (Age: 29) Gender: F Address: [address] [place] [address] [facility] #: [id number] Service: Gastro Location: Patient Type: [facility] OUTPATIENT Taken: 09/11/2024 Received: 09/11/2024 Accessioned: [...] cm. Entirely submitted. Labeled C1. Jar 0. jjmhb/09/11/2024 13:38 MISHA Baig, PA (ASCP) Microscopic slide review and interpretation for this case was performed at [facility], Department of Surgical Pathology, [address] [facility] [place], [place] [id number], [place] [address] [facility] # [id number] us Nabil Newman MD LAB PATHOLOGY ORDERABLES Final R esult PATHOLOGY [facility] * EGD (09/11/2024 10:15 AM CDT) Anatomical Region Laterality Modality Other Narrative Procedure Note Nabil Newman MD - 09/11/2024 10:15 AM CDT [facility] GI ENDOSCOPY Patient Name: Sharda Stark Procedure Date: 09/11/2024 10:15 AM Date of : 1995 Admit Type: Outpatient Age: 29 Gender: Female Attending MD: Nabil Newman M.D. Room: [facility] ENDOSCOPY ROOM 03 Note Status: Finalized Procedure: Upper GI endoscopy Indications: Abdominal pain Referring MD: Providers: Nabil Newman M.D. Medicines: [...] On: 09/11/2024 10:15 AM Recognized by the [employer] for promoting quality in endoscopy us Nabil Newman MD ENDOSCOPY PROCEDURES Final Resul t * Colonoscopy (09/11/2024 10:14 AM CDT) Anatomical Region Laterality Modality Other Narrative Procedure Note Nbail Newman MD - 09/11/2024 10:14 AM CDT [facility] GI ENDOSCOPY Patient Name: Sharda Stark Procedure Date: 09/11/2024 10:14 AM Date of : 1995 Admit Type: Outpatient Age: 29 Gender: Female Attending MD: Nabil Newman M.D. Room: [facility] ENDOSCOPY ROOM 03 Note Status: Finalized Procedure: [...] On: 09/11/2024 10:14 AM Recognized by the [employer] for promoting quality in endoscopy us Nabil Newman MD ENDOSCOPY PROCEDURES Final Resul t * POCT hCG, urine (09/11/2024 9:53 AM CDT) HCG, ur, POC Negative Negative Lot Number [id number] QC Backgroud Clear Acceptable QC Control Line Acceptable Urine 09/11/2024 9:53 AM CDT Dave Zurita MD POINT OF CARE TEST ORDERABLES Final Result * eGFR (09/04/2024 10:51 AM SHIPPING AND RECEIVING MATERIAL HANDLER) eGFR >90 >=60 mL/min/1. 73 m2 Comment: [...] reviewed 2021. Blood 09/04/2024 10:5 1 AM SHIPPING AND RECEIVING MATERIAL HANDLER 09/04/2024 11:06 AM SHIPPING AND RECEIVING MATERIAL HANDLER us Nabil Newman MD LAB BLOOD ORDERABLES Final Resul t [facility] [address] [facility] Department [place] [address] * Differential, auto (09/04/2024 10:51 AM SHIPPING AND RECEIVING MATERIAL HANDLER) Neutrophil abs 5.6 1.5 - 6.5 K/cumm Imm gran abs 0.0 0.0 - 0.1 K/cumm [facility] Lymphocyte abs 1.7 0.8 - 3.3 K/cumm [facility] Monocyte abs 0.6 0.2 - 0.8 K/cumm [facility] Eosinophil abs 0.1 0.0 - 0.5 K/cumm [facility] Basophil abs 0.1 0.0 - 0.1 K/cumm [facility] Neutrophil pct 69.3 % [facility] Comment: Interpretive Data Percent cell count reference ranges are not reported, since discordance with absolute values may lead to misinterpretation of CBC data. Current Interpretive Data was last revised on 2017. Imm gran pct 0.4 % [facility] Comment: Interpretive Data Percent cell count reference ranges are not reported, since discordance with absolute values may lead to misinterpretation of CBC data. Current Interpretive Data was last revised on 2017. Lymphocyte pct 20.8 % [facility] Comment: Interpretive Data Percent cell count reference ranges are not reported, since discordance with absolute values may lead to misinterpretation of CBC data. Current Interpretive Data was last revised on 2017. Monocyte pct 7.3 % [facility] Comment: Interpretive Data Percent cell count reference ranges are not reported, since discordance with absolute values may lead to misinterpretation of CBC data. Current Interpretive Data was last revised on 2017. Eosinophil pct 1.5 % [facility] Comment: Interpretive Data Percent cell count reference ranges are not reported, since discordance with absolute values may lead to misinterpretation of CBC data. Current Interpretive Data was last revised on 2017. Basophil pct 0.7 % [facility] Comment: Interpretive Data Percent cell count reference ranges are not reported, since discordance with absolute values may lead to misinterpretation of CBC data. Current Interpretive Data was last revised on 2017. Blood 09/04/2024 10:5 1 AM SHIPPING AND RECEIVING MATERIAL HANDLER 09/04/2024 11:06 AM SHIPPING AND RECEIVING MATERIAL HANDLER us Nabil Newman MD LAB BLOOD ORDERABLES Final Resul t [facility] [address] [facility] Department [place] [address] * (ABNORMAL) CBC with auto differential (09/04/2024 10:51 AM SHIPPING AND RECEIVING MATERIAL HANDLER) Pathologist [facility] WBC 8.1 3.8 - 9.9 K/cumm Hgb 12.4 11.9 - 15.5 g/dL [facility] Hct 38.2 35.6 - 45.5 % [facility] Plt 512(H) 150 - 400 K/cumm [facility] MPV 9.0(L) 9.1 - 12.3 fL [facility] RBC 4.28 3.90 - 5.20 M/cumm [facility] MCV 89.3 81.3 - 96.4 fL [facility] MCH 29.0 27.1 - 33.3 pg [facility] MCHC 32.5 32.3 - 35.7 g/dL [facility] RDW CV 13.0 11.1 - 14.9 % [facility] RDW SD 42.1 35.7 - 48.1 fL [facility] NRBC abs 0.00 0.00 - 0.01 K/cumm [facility] Blood 09/04/2024 10:5 1 AM SHIPPING AND RECEIVING MATERIAL HANDLER 09/04/2024 11:06 AM SHIPPING AND RECEIVING MATERIAL HANDLER us Nabil Newman MD LAB BLOOD ORDERABLES Final Resul t [facility] [address] [facility] Department [place] [address] * Gliadin antibody, IgA (09/04/2024 10:51 AM SHIPPING AND RECEIVING MATERIAL HANDLER) Pathologist [facility] Anti-gliadin, IgA 4.8 <=14.9 units/mL Comment: Interpretive data Negative: <15 units/mL Positive: > or equal to 15 units/mL Current interpretive data was last revised on 2016. Testing performed by: [facility], [address], [place]., [address] Blood 09/04/2024 10:5 1 AM SHIPPING AND RECEIVING MATERIAL HANDLER 09/04/2024 2:13 PM SHIPPING AND RECEIVING MATERIAL HANDLER Nabil Newman MD LAB BLOOD ORDERABLES Final Resul t Performing Organization Address [facility] de Phone Number [address] [address] * Tissue transglutaminase IgA (TGG-IgA Ab) (09/04/2024 10:51 AM SHIPPING AND RECEIVING MATERIAL HANDLER) [facility] TTG ab, IgA <0.5 <=14.9 units/mL Comment: Interpretive data Negative: <15 units/mL Positive: > or equal to 15 units/mL Current interpretive data was last revised on 2016. Testing performed by: [facility], [address] [place]., [address] Blood 09/04/2024 10:5 1 AM SHIPPING AND RECEIVING MATERIAL HANDLER 09/04/2024 2:10 PM SHIPPING AND RECEIVING MATERIAL HANDLER Nabil Newman MD LAB BLOOD ORDERABLES Final Resul t Performing Organization Address [facility] de Phone Number [address] [address] * Lipase (09/04/2024 10:51 AM SHIPPING AND RECEIVING MATERIAL HANDLER) [facility] Lipase 40 10 - 99 Units/L Blood 09/04/2024 10:5 1 AM SHIPPING AND RECEIVING MATERIAL HANDLER 09/04/2024 11:06 AM SHIPPING AND RECEIVING MATERIAL HANDLER Nabil Newman MD LAB BLOOD ORDERABLES Final Resul t Performing Organization Address [facility] de Phone Number [address] [place] [address] * Comprehensive metabolic panel (09/04/2024 10:51 AM SHIPPING AND RECEIVING MATERIAL HANDLER) [facility] Sodium 142 135 - 145 mmol/L Potassium, pl 4.1 3.3 - 4.9 mmol/L [facility] Chloride 107 97 - 110 mmol/L [facility] CO2 24 22 - 32 mmol/L [facility] Anion gap 11 2 - 15 mmol/L [facility] BUN 9 6 - 25 mg/dL [facility] Creatinine 0.73 0.60 - 1.10 mg/dL [facility] Glucose 89 70 - 199 mg/dL [facility] Comment: Interpretive Data Fasting glucose >/= 126 [...] classification and Diagnosis of Diabetes Diabetes Care 2021; 46: S19-S40. Current interpretive data was last revised 2022. Calcium 9.5 8.5 - 10.3 mg/dL [facility] Bilirubin, total 0.2 0.1 - 1.2 mg/dL [facility] Protein, pl 7.6 6.5 - 8.5 g/dL [facility] Albumin 4.1 3.5 - 5.0 g/dL [facility] Alk phos 70 40 - 130 Units/L [facility] ALT 11 7 - 45 Units/L [facility] AST 21 10 - 45 Units/L [facility] Blood 09/04/2024 10:5 1 AM SHIPPING AND RECEIVING MATERIAL HANDLER 09/04/2024 11:06 AM SHIPPING AND RECEIVING MATERIAL HANDLER Nabil Newman MD LAB BLOOD ORDERABLES Final Resul t Performing Organization Address [facility] Co de Phone Number [facility] [address] [facility] Department [place] [address] * Horizon 106 carrier screen - Miscellaneous Test (08/31/2024) Miscellaneous 08/31/2024 Bridget Cheney MD LAB BLOOD ORDERABLES Fin al Result Performing Organization Address City/[facility]/ZIP Co de Phone Number EXTERNAL LAB * US Abdomen Complete (08/25/2024 9:57 AM SHIPPING AND RECEIVING MATERIAL HANDLER) Anatomical Region Laterality Modality Abdomen N/A Ultrasound 08/25/2024 10:0 4 AM SHIPPING AND RECEIVING MATERIAL HANDLER Impressions 08/25/2024 10:14 AM SHIPPING AND RECEIVING MATERIAL HANDLER Normal abdominal sonogram. Dictated by: Navya Jenkins M.D. The radiology attending physician has personally reviewed this study, and had reviewed and/or edited this written report and agrees with it. Electronically signed by: Jane Patton M.D. Narrative 08/25/2024 10:14 AM SHIPPING AND RECEIVING MATERIAL HANDLER EXAMINATION: COMPLETE ABDOMINAL SONOGRAM HISTORY: 29-year-old female [...] it. Electronically signed by: Jane Patton M.D. Nabil Newman MD [facility] [place] PROCEDURES Final Result * CTA Heart and Coronary Arteries W Morphology when Performed (08/21/2024 2:41 PM SHIPPING AND RECEIVING MATERIAL HANDLER) Anatomical Region Laterality Modality Chest N/A Computed Tomogra phy 08/21/2024 3:05 PM SHIPPING AND RECEIVING MATERIAL HANDLER Impressions 08/21/2024 3:33 PM SHIPPING AND RECEIVING MATERIAL HANDLER 1. Calculated calcium score of 0. 2. No atherosclerotic disease. 3 Normal left ventricular size and function. Ejection Fraction 62% without regional wall motion abnormalities. Dictated by: Kendall Lauren M.D. The radiology attending physician has personally reviewed this study, and had reviewed and/or edited this written report and agrees with it. Electronically signed by: Brian Pederson M.D. Narrative 08/21/2024 3:33 PM SHIPPING AND RECEIVING MATERIAL HANDLER EXAMINATION: CORONARY CT ANGIOGRAM HISTORY: Abnormal stress [...] d * POCT creatinine (08/21/2024 2:19 PM SHIPPING AND RECEIVING MATERIAL HANDLER) Creatinine POC 0.7 0.6 - 1.1 mg/dL Blood 08/21/2024 2:19 PM SHIPPING AND RECEIVING MATERIAL HANDLER 08/21/2024 2:19 PM SHIPPING AND RECEIVING MATERIAL HANDLER Karly Flores MD LAB POCT ORDERABLES - D EVICE Final Result [facility] Department [place] [address] * NM MPI SPECT (Rest and/or Stress) Multiple Studies (07/07/2024 11:51 AM SHIPPING AND RECEIVING MATERIAL HANDLER) Anatomical Region Laterality Modality Body N/A Nuclear Medicine 07/07/2024 8:40 AM SHIPPING AND RECEIVING MATERIAL HANDLER Narrative 07/07/2024 12:48 PM SHIPPING AND RECEIVING MATERIAL HANDLER [facility] Cardiology [address] [facility] [address], [place] [address] [facility] [address], [place] [address] P:[phone] P:[phone] MPI Imaging Report Patient Name: SHARDA STARK K : 1995 Study Date: 07/07/2024 8:40:18 AM Gender: F Tech: [facility] Location: Testing Center Ref Provider: KARLY [...] By: Dave Lutz MD 07/07/2024 12:48:28 PM SHIPPING AND RECEIVING MATERIAL HANDLER Electronically Signed By: Dave Ltuz MD 07/07/2024 12:48:28 PM SHIPPING AND RECEIVING MATERIAL HANDLER Procedure Note Dave Lutz MD - 07/07/2024 [facility] Medical [facility] Cardiology [address] [facility] [id number] [place] [address] [address] [address] P:[phone] P:[phone] MPI Imaging Report Patient Name: SHARDA STARK K : 1995 Study Date: 07/07/2024 8:40:18 AM Gender: F Tech: [facility] Location: Testing Center Ref Provider: KARLY [...] By: Dave Lutz MD 07/07/2024 12:48:28 PM SHIPPING AND RECEIVING MATERIAL HANDLER Electronically Signed By: Dave Lutz MD 07/07/2024 12:48:28 PM SHIPPING AND RECEIVING MATERIAL HANDLER Ripa James Flores MD IMG NM PROCEDURES Final Result * HM PAP SMEAR WITH HPV (03/14/2020) Scribed Pap Smear w/HPV Normal us Historical Provider HEALTH MAINTENANCE Final Result from Last 3 Months or Most Recently Relevant to Health Maintenance Insurance [address] [place] [address] [facility] Care Teams Gun Stock Checker Relationship Specialty Start Date End Date Romeo Mcqueen MD PCP - General Family Medicine 02/16/22 Car Romero MD [address] [place] [address] Consulting Physician Pain Management 10/17/23 Evans Mota MD [address] [place] [address] Consulting Physician Neurology 01/25/24 Nolan Robbins MD [address] [place] [address] Consulting Physician Neurology 01/25/24
--- OUTSIDE RECORDS SUMMARY | 2024-09-23 01:14 | XMS_ITS | Encounter Summary ---
Author Organization [facility] Address [address] [place] [address] Care Team Providers Care Marquetry Worker Name Role Phone Unavailable Primary Care Provider Unavailabl e Encounter Details Date Type Department Care Team (Latest Contact Info) Description 07/24/2024 Results Follow-Up [facility] Neurology - [address] [place] [address] Nolan Robbins MD [address] [facility] [address] [place] [address] CBC WITH DIFFERENTIAL, DNA AUTOABS DOUBLE STRANDED, SEDIMENTATION RATE Social History Tobacco Use Types Packs/Day Years [...]
--- OUTSIDE RECORDS SUMMARY | 2024-09-23 01:14 | XMS_ITS | Encounter Summary ---
Author Organization [facility] Address [address] [place] [address] Care Team Providers Care Tangled Yarn Worker Name Role Phone Unavailable Primary Care Provider Unavailabl e Reason for Visit * Reason Onset Date Comments Medication Authorization 08/14/2024 Encounter Details Date Type Department Care Team (Late st Contact Info) Description 08/14/2024 Telephone [facility] Neurology [address] [facility] [address] [place] [address] Nolan Robbins MD [address] [facility] [address] [place] [address] Medication Authorization Social History Tobacco Use Types Packs/Day Years [...] encounter Miscellaneous Notes * Telephone Encounter - Louis Chakraborty - 08/30/2024 9:45 AM SHEET COMBINING OPERATOR Annelise with [employer] called to check on the status of this PA. (ask for someone in insurance verification) T COMBINING OPERATOR * Telephone Encounter - Urbano George - 08/14/2024 11:23 AM SHEET COMBINING OPERATOR Medication PA Request Caller: Nancy from [facility] Medication: Ofatumumab Generic or Brand name: [facility]: [address] [address] Fax: [phone] How many doses left? Unknown T COMBINING OPERATOR documented in this encounter Plan of Treatment Not on file documented as of this encounter Visit Diagnoses Not on filedocumented in this encounter
[2024-09-23 01:15] VITALS: BP 109/81; PULSE 73; RESP 18; TEMP 36.7; O2SAT 100
[2024-09-23 02:12] LABS: Strep Group A RT-PCR NOT DETECTED (Negative)
--- NOTE | 2024-09-23 02:29 | ED_ITS ---
HPI - General Adult General Chief complaint: Upper Respiratory Infection Stated complaint: sore throat Time Seen by Provider: 09/23/24 02:28 History of Present Illness HPI narrative: Patient is a 29-year-old female who presents emergency department with chief complaint of sore throat. Patient reports she had an endoscopy recently and reports she has had a sore started since then. The patient reports he is able to swallow it is painful whenever she swallows. The patient denies stridor denies fever Related Data Home Medications ?Medication ?Instructions ?Recorded ?Confirmed ?Last Taken ?Type acetaminophen 500 mg capsule 500 mg PO Q6H PRN Pain 10/07/21 10/07/21 Unknown History cholecalciferol (vitamin D3) 50 50 mcg PO DAILY 10/07/21 10/07/21 Unknown History mcg (2,000 unit) capsule cyclobenzaprine 5 mg tablet 5 mg PO TID PRN Pain 10/07/21 10/07/21 Unknown History dimethyl fumarate 240 mg 240 mg PO BID 10/07/21 10/07/21 Unknown History capsule,delayed release (Tecfidera) gabapentin 300 mg capsule 300 mg PO DAILY 10/07/21 10/07/21 Unknown History nortriptyline 25 mg capsule 25 mg PO QHS 10/07/21 10/07/21 Unknown History sumatriptan succinate 100 mg tablet mg PO 04/14/22 Unknown History ciclopirox 1 % shampoo topical 09/18/24 Unknown History clobetasol 0.05 % scalp solution topical 09/18/24 Unknown History duloxetine 60 mg capsule,delayed mg PO 09/18/24 Unknown History release fremanezumab-vfrm 225 mg/1.5 mL mg subcut 09/18/24 Unknown History subcutaneous auto-injector (Ajovy) indomethacin 50 mg capsule mg 09/18/24 Unknown History ketoconazole 2 % shampoo topical 09/18/24 Unknown History linaclotide 145 mcg capsule mcg 09/18/24 Unknown History (Virazesaminta) montelukast 10 mg tablet mg 09/18/24 Unknown History ofatumumab 20 mg/0.4 mL mg subcut 09/18/24 Unknown History subcutaneous pen injector (Kesimpta Pen) tretinoin 0.025 % topical cream applic topical 09/18/24 Unknown History Allergies Allergy/AdvReac Type Severity Reaction Status Date / Time dimethyl fumarate (From Allergy Intermediate hot flashes Verified 09/23/24 01:12 Tecfidera) Review of Systems Review of Systems: A 10 system review of systems was completed on the patient and is negative except for what is stated in the HPI. Nursing and ancillary documentation was reviewed. REPLACED BY [facility] Past Medical History Medical History Multiple sclerosis Anxiety Hypertension Headache Surgical History Surgical History No history of previous surgery Social History Social History Smoking status: Never smoker Alcohol intake: never Substance use: never Living arrangements: with family Gender identity (if verbalized by the patient): Female Exam Narrative: GENERAL: Well-appearing, well-nourished, and in no acute distress. HEAD: Normocephalic, atraumatic. EYES: PERRLA and EOMI. ENT: Nares clear, no rhinorrhea or epistaxis. Mucous membranes moist. NECK: Supple. CHEST: Clear to auscultation. No respiratory distress. HEART: Regular rate and rhythm. No murmur heard. Normal peripheral pulses. ABDOMEN: Soft, nontender, nondistended, normal active bowel sounds. EXTREMITIES: Normal range of motion. No edema. SKIN: Warm, dry, no rash. NEURO: No focal deficits. Alert and oriented x3. PSYCH: Normal mood and affect. Course Vital Signs Vital signs: Vital Signs Temperature 36.7 C 09/23/24 01:15 Pulse Rate 73 09/23/24 01:15 Respiratory Rate 18 09/23/24 01:15 Blood Pressure 109/81 09/23/24 01:15 Pulse Oximetry 100 09/23/24 01:15 Oxygen Delivery Room Air 09/23/24 01:15 Temperature 36.7 C 09/23/24 01:15 Pulse Rate 73 09/23/24 01:15 Respiratory Rate 18 09/23/24 01:15 Blood Pressure 109/81 09/23/24 01:15 Pulse Oximetry 100 09/23/24 01:15 Oxygen Delivery Room Air 09/23/24 01:15 Medical Decision Making MDM Narrative Medical decision making narrative: Differential diagnosis includes viral pharyngitis, most procedure irritation, anterior strep pharyngitis Strep was negative Patient was started on p.o. prednisone Vital Signs Vital Signs: Vital Signs Temperature 36.7 C 09/23/24 01:15 Pulse Rate 73 09/23/24 01:15 Respiratory Rate 18 09/23/24 01:15 Blood Pressure 109/81 09/23/24 01:15 Pulse Oximetry 100 09/23/24 01:15 Oxygen Delivery Room Air 09/23/24 01:15 Temperature 36.7 C 09/23/24 01:15 Pulse Rate 73 09/23/24 01:15 Respiratory Rate 18 09/23/24 01:15 Blood Pressure 109/81 09/23/24 01:15 Pulse Oximetry 100 09/23/24 01:15 Oxygen Delivery Room Air 09/23/24 01:15 Lab Data Labs: Lab Results 09/23/24 Range/Units 01:46 Group A Strep (PCR) Not detected (Negative) Discharge Plan Discharge Clinical Impression: Viral pharyngitis Patient Disposition: Home, Self-Care Condition: Stable Instructions: Antibiotic Form, Pharyngitis (ED) Patient Language: Hungarian Prescriptions: New prednisone 20 mg tablet 40 mg PO DAILY 5 Days Qty: 10 0RF No Action ketoconazole 2 % shampoo TOPICAL tretinoin 0.025 % cream TOPICAL indomethacin 50 mg capsule montelukast 10 mg tablet clobetasol 0.05 % solution TOPICAL ciclopirox 1 % shampoo TOPICAL duloxetine 60 mg capsule,delayed release(DR/EC) PO Linzess 145 mcg capsule Ajovy Autoinjector 225 mg/1.5 mL auto-injector SUBCUT Kesimpta Pen 20 mg/0.4 mL pen injector SUBCUT fluticasone propionate [Flonase Allergy Relief] 50 mcg/actuation spray,suspension 1 spray intranasal DAILY Qty: 16 0RF Rx Instructions: administer into each nostril dimethyl fumarate [Tecfidera] 240 mg capsule,delayed release(DR/EC) 240 mg PO BID gabapentin 300 mg capsule 300 mg PO DAILY cholecalciferol (vitamin D3) 50 mcg (2,000 unit) capsule 50 mcg PO DAILY nortriptyline 25 mg capsule 25 mg PO QHS cyclobenzaprine 5 mg tablet 5 mg PO TID PRN (Reason: Pain) acetaminophen 500 mg capsule 500 mg PO Q6H PRN (Reason: Pain) celecoxib [Celebrex] 200 mg capsule 200 mg PO BID Qty: 14 0RF naproxen 375 mg tablet 375 mg PO BID Qty: 14 0RF sumatriptan succinate 100 mg tablet PO acetaminophen 500 mg capsule 500 mg PO Q6H PRN (Reason: fever or pain) Qty: 30 0RF lidocaine 4 % adhesive patch,medicated 1 patch TOPICAL Q24H PRN (Reason: pain) 10 Days Qty: 10 0RF Rx Instructions: may leave on for up to 12 hrs ibuprofen 400 mg tablet 400 mg PO TID PRN (Reason: fever or pain) 10 Days Qty: 30 0RF Follow-up/Referrals: Charisse,MD Romeo [Primary Care Provider] - Time of Disposition: 02:32
--- OUTSIDE RECORDS SUMMARY | 2024-09-23 02:47 | XMS_ITS | Clinical Summary ---
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 [...] 07/28/2024 Assessment & Plan (07/28/2024 8:57 AM REPAIR ARMATURE WINDER): Recent abnormal stress test, noted plans for coronary CTA. -We will request cardiac clearance prior EGD and colonoscopy Chronic migraine without aur a without status migrainosus, not intractable 11/17/2023 Overview (11/17/2023): Please see my note 11/17/2023 for details regarding headache history. Assessment & Plan (06/20/2024 1:48 PM REPAIR ARMATURE WINDER): The patient has chronic migraine, as well [...] will be seeing MS provider here at [facility]. Assessment & Plan (01/05/2024 1:32 PM CDT): [...] noted. Assessment & Plan (07/27/2023 11:23 AM REPAIR ARMATURE WINDER): Given ongoign pain in the Ts will get updated XR. Intractable chronic migraine without aura and without status migrainosus 07/12/2023 Assessment & Plan (07/18/2024 3:28 PM REPAIR ARMATURE WINDER): The patient has a long history of [...] 04/12/2022 Assessment & Plan (07/28/2024 8:56 AM REPAIR ARMATURE WINDER): Chronic constipation, getting progressively worse over the past few years. Patient has failed tqsc-eob-owzaiqz laxatives like MiraLax. Takes Linzess p.r.n. -High-fiber [...] None Assessment & Plan (07/18/2024 3:32 PM REPAIR ARMATURE WINDER): The patient is presenting to establish care [...] persists. She was following up with a construction producer for further evaluation of her GI issues [...] back pain and balance difficulties. Continue vitamin-D 04183 units weekly. We will Assessment & Plan (03/08/2024 4:56 PM CDT): Continue duloxetine. Continue to follow with neurology. Assessment & Plan (12/10/2023 9:02 AM CDT): Following Dr. Massey as well as Dr. Liu. Reports she may be switching from Dr. Liu as he may not be in network. Duloxetine remains the most helpful option. Assessment & Plan (07/27/2023 11:22 AM REPAIR ARMATURE WINDER): Continue dosing of duloxetine. Following with neurology. [...] f/u imaging will be. Referred to PT. THEATRICAL TROUPER demyelination 02/18/2021 Chronic tonsillitis 01/28/2021 Assessment & [...] Resolve Assessment & Plan (07/28/2024 8:55 AM REPAIR ARMATURE WINDER): Chronic lower abdominal pain, radiates to the [...] Abnormal uterine bleeding; Progress: Stable Added By: rEic Maldonado Add to Current Problems: NO ProblemStatus: Resolve Encounters Date Type Department Care Team Description 09/19/19 Telephone [facility] Gastroenterology at [address] [place] [address] Nabil Newman MD 09/16/19 25 Telephone [facility] Obstetrics and Gynecology [address] [facility] 7th Floor [address] [place] [phone] Nicky Green CGC 09/14/19 8:06 PM CDT - 09/14/19 11:59 PM CDT Hospital Encounter [facility]) [address] [place] [address] Multiple sclerosis (HCC) Discharge Disposition: Discharge to home or self care 09/13/19 Results Follow-Up [facility] Gastroenterology at [address] [place] [address] Nabil Newman MD 09/12/19 10:58 AM CDT Anesthesia Event [facility] GI Lab [address] [place] [address] Liliam Blunt MD 09/12/19 9:30 AM CDT - 09/12/19 10:00 AM CDT Surgery [facility] GI Lab [address] [place] [address] Nabil Newman MD ESOPHAGOGASTRODUODENOSCOPY BIOPSY 09/12/19 9:02 AM CDT - 09/12/19 12:12 PM CDT Hospital Encounter [facility] GI Lab [address] [place] [address] Nabil Newman MD Abdominal pain; Change in bowel habits; Chronic idiopathic constipation Discharge Disposition: Discharge to home or self care 09/05/19 10:30 AM REPAIR ARMATURE WINDER Lab [facility] Lab [address] [place] [address] Abdominal pain 09/05/19 Telephone [facility] [address] [place] [phone] Kelly Sharma [facility] 09/01/19 Telephone [facility] [address] [facility] [address] [place] [address] Nael Cunningham MD 09/01/19 Telephone [facility] [address] [facility] [address] [place] [phone] Raphael Cedillo MA 08/31/19 11:00 AM REPAIR ARMATURE WINDER Procedure visit [facility] Obstetrics and Gynecology [facility] 7th [place] [address] Genetic screening (Primary Dx) 08/31/19 10:00 AM REPAIR ARMATURE WINDER Clinical Support [facility] Obstetrics and Gynecology [facility] 7th Floor [address] [place] [phone] Encounter of female for testing for genetic disease carrier status for procreative management (Primary Dx); Encounter for preconception consultation; Encounter for procreative genetic counseling 08/31/19 Orders Only [facility] Gastroenterology at [place] [address] [facility] [address] [place] [address] Nabil Newman MD Abdominal pain (Primary Dx); Change in bowel habits; Chronic idiopathic constipation 08/31/19 Orders Only [facility] Obstetrics and Gynecology [address] [facility] 7th [address] [place] [address] Nicky Green [facility] Encounter of female for testing for genetic disease carrier status for procreative management (Primary Dx) 08/28/19 Telephone [facility] Cardiology [address] [facility] [address] [phone] Karly Flores MD Pre Op form GI 08/25/19 9:00 AM REPAIR ARMATURE WINDER - 08/25/19 11:59 PM REPAIR ARMATURE WINDER Hospital Encounter [facility] ([facility]) [address] [place] [address] Abdominal pain Discharge Disposition: Discharge to home or self care 08/25/19 Results Follow-Up [facility] Gastroenterology at [address] [place] [phone] Nabil Newman MD 08/24/19 Results Follow-Up [facility] Cardiology [address] [facility] [address] [place] [address] Karly Flores MD 08/22/19 Telephone [facility] [address] [facility] [address] [place] [address] Liliam Mcbride RN 08/21/19 1:49 PM REPAIR ARMATURE WINDER - 08/21/19 11:59 PM REPAIR ARMATURE WINDER Hospital Encounter [facility] ([facility]) [address] [place] [address] Abnormal cardiovascular stress test; Other chest pain Discharge Disposition: Discharge to home or self care 08/17/19 Telephone [facility] Gastroenterology at [address] [place] [phone] Nabil Newman MD Scheduling Appointments 08/09/19 8:00 AM REPAIR ARMATURE WINDER Telemedicine [facility] Obstetrics and Gynecology [address] [facility] [address] [place] [phone] Encounter for preconception consultation (Primary Dx); Chronic migraine without aura without status migrainosus, not intractable; Multiple sclerosis (HCC) 08/08/19 Documentation [facility] [address] [place] [address] Tabitha Haque MD 07/28/19 8:45 AM REPAIR ARMATURE WINDER Office Visit [facility] Gastroenterology at [address] [place] [phone] Nabil Newman MD Change in bowel habits (Primary Dx); Abdominal pain; Chronic idiopathic constipation; Abnormal stress test 07/18/19 2:00 PM REPAIR ARMATURE WINDER Office Visit [facility] [address] [facility] [address] [place] [address] Nale Cunningham MD Multiple sclerosis (HCC) (Primary Dx); Multiple sclerosis (HCC); Intractable chronic migraine without aura and without status migrainosus 07/18/19 Telephone [facility] [address] [facility] 7th Floor [address] [place] [address] Ana West RN 07/11/19 Telephone [facility] Cardiology [address] [place] [address] [place] [phone] Karly Flores MD 07/07/19 8:15 AM REPAIR ARMATURE WINDER Ancillary Procedure [facility] Medical [facility] Cardiology [address] [place] [address] [place] [phone] Shortness of breath; Other chest pain [...] on file Legal Sex Female 7:38 PM REPAIR ARMATURE WINDER Gender Identity Not on file Sexual Orientation [...] cm (5' 1 ) 07/28/2024 8:34 AM REPAIR ARMATURE WINDER Body Mass Index 34.01 07/28/2024 8:34 AM REPAIR ARMATURE WINDER Plan of Treatment Health Maintenance Due Date [...] AM CDT EGFR Routine 09/04/2024 10:51 AM REPAIR ARMATURE WINDER Abdominal pain DIFFERENTIAL AUTO Routine 09/04/2024 10:51 AM REPAIR ARMATURE WINDER Abdominal pain GLIADIN ANTIBODY, IGA Routine 09/04/2024 10:51 AM REPAIR ARMATURE WINDER Abdominal pain TISSUE TRANSGLUTAMINASE, IGA Routine 09/2024 10:51 AM REPAIR ARMATURE WINDER Abdominal pain CBC WITH AUTO DIFFERENTIAL Routine 09/04 10:51 AM REPAIR ARMATURE WINDER Abdominal pain COMPREHENSIVE METABOLIC PANEL Routine 10:51 AM REPAIR ARMATURE WINDER Abdominal pain LIPASE Routine 09/04/2024 10:51 AM REPAIR ARMATURE WINDER Abdominal pain CELIAC DISEASE ANTIBODY SCREEN Routine 0 09/04/2024 10:51 AM REPAIR ARMATURE WINDER Abdominal pain MISCELLANEOUS LAB TEST Routine 08/31/2024 Encounter of female for testing for genetic disease carrier status for procreative management US ABDOMEN COMPLETE Schedule Routine, Read Routine (OP Routine) 08/25/2024 9:57 AM REPAIR ARMATURE WINDER Abdominal pain CT HEART MORPHOLOGY AND CORONARY ARTERIES W CONTRAST Schedule Routine, Read Routine (OP Routine) 08/21/2024 2:41 PM REPAIR ARMATURE WINDER Abnormal cardiovascular stress test Other chest pain POCT CREATININE - DEVICE Routine 025 2:19 PM REPAIR ARMATURE WINDER NM MPI SPECT (REST AND/OR STRESS) MULTIPLE STUDIES Schedule Routine, Read Routine (OP Routine) 07/07/2024 11:51 AM REPAIR ARMATURE WINDER Shortness of breath Other chest pain HM [...] intravenous contrast using the standard protocol. Scanner: [facility] Field Strength: 3T Contrast information: 16 mL Gadoterate Meglumine IV The post-contrast brain scan was performed approximately 12 minutes after IV contrast administration. COMPARISON: MRI cervical spine dated 01/02/2023, MRI of brain dated 03/02/2023 FINDINGS: BRAIN: There are a few unchanged periventricular T2/FLAIR white matter hyperintensities. New Brain T2 Lesions: None. T1 Hypointense Black Holes : 1 Enhancing Brain Lesions: None. T2/FLAIR [place] of Disease: Mild, less than 10 typical [...] : 1 Enhancing Brain Lesions: None. T2/FLAIR [place] of Disease: Mild, less than 10 typical [...] intravenous contrast using the standard protocol. Scanner: [facility] Field Strength: 3T Contrast information: 16 mL Gadoterate Meglumine IV The post-contrast brain scan was performed approximately 12 minutes after IV contrast administration. COMPARISON: MRI cervical spine dated 01/02/2023, MRI of brain dated 03/02/2023 FINDINGS: BRAIN: There are a few unchanged periventricular T2/FLAIR white matter hyperintensities. New Brain T2 Lesions: None. T1 Hypointense Black Holes : 1 Enhancing Brain Lesions: None. T2/FLAIR [place] of Disease: Mild, less than 10 typical [...] intravenous contrast using the standard protocol. Scanner: [facility] Field Strength: 3T Contrast information: 16 mL Gadoterate Meglumine IV The post-contrast brain scan was performed approximately 12 minutes after IV contrast administration. COMPARISON: MRI cervical spine dated 01/02/2023, MRI of brain dated 03/02/2023 FINDINGS: BRAIN: There are a few unchanged periventricular T2/FLAIR white matter hyperintensities. New Brain T2 Lesions: None. T1 Hypointense Black Holes : 1 Enhancing Brain Lesions: None. T2/FLAIR [place] of Disease: Mild, less than 10 typical [...] biopsy) 09/11/2024 11:05 AM CDT Narrative PATHOLOGY [facility] - 09/12/2024 2:14 PM CDT [facility] Department of Pathology [address] [place] [address] Note to Patients: This report may contain [...] 1995 (Age: 29) Gender: F Address: [address] [place] [address] [facility] #: [id number] Service: Gastro Location: Patient Type: [facility] OUTPATIENT Taken: 09/11/2024 Received: 09/11/2024 Accessioned: [...] interpretation for this case was performed at [facility], Department of Surgical Pathology, [address] [facility] [place], [place] [id number], [place] [address] [facility] # [id number] us Nabil Newman MD LAB PATHOLOGY ORDERABLES Final R esult PATHOLOGY [facility] * EGD (09/11/2024 10:15 AM CDT) Anatomical Region Laterality Modality Other Narrative Procedure Note Nabil Newmna MD - 09/11/2024 10:15 AM CDT [facility] GI ENDOSCOPY Patient Name: Sharda Stark Procedure Date: 09/11/2024 10:15 AM Date of : 1995 Admit Type: Outpatient Age: 29 Gender: Female Attending MD: Nabil Newman M.D. Room: [facility] ENDOSCOPY ROOM 03 Note Status: Finalized Procedure: [...] On: 09/11/2024 10:15 AM Recognized by the [employer] for promoting quality in endoscopy us Nabil Newman MD ENDOSCOPY PROCEDURES Final Resul t * Colonoscopy (09/11/2024 10:14 AM CDT) Anatomical Region Laterality Modality Other Narrative Procedure Note Nabil Newman MD - 09/11/2024 10:14 AM CDT [facility] GI ENDOSCOPY Patient Name: Sharda Stark Procedure Date: 09/11/2024 10:14 AM Date of : 1995 Admit Type: Outpatient Age: 29 Gender: Female Attending MD: Nabil Newman M.D. Room: [facility] ENDOSCOPY ROOM 03 Note Status: Finalized Procedure: [...] On: 09/11/2024 10:14 AM Recognized by the [employer] for promoting quality in endoscopy us Nabil Newman MD ENDOSCOPY PROCEDURES Final Resul t * POCT hCG, urine (09/11/2024 9:53 AM CDT) HCG, ur, POC Negative Negative Lot Number [id number] QC Backgroud Clear Acceptable QC Control Line Acceptable Urine 09/11/2024 9:53 AM CDT Dave Zurita MD POINT OF CARE TEST ORDERABLES Final Result * eGFR (09/04/2024 10:51 AM REPAIR ARMATURE WINDER) eGFR >90 >=60 mL/min/1. 73 m2 Comment: [...] reviewed 2021. Blood 09/04/2024 10:5 1 AM REPAIR ARMATURE WINDER 09/04/2024 11:06 AM REPAIR ARMATURE WINDER us Nabil Newman MD LAB BLOOD ORDERABLES Final Resul t [facility]JTKYA [address] [facility] [place] [address] * Differential, auto (09/04/2024 10:51 AM REPAIR ARMATURE WINDER) Neutrophil abs 5.6 1.5 - 6.5 K/cumm Imm gran abs 0.0 0.0 - 0.1 K/cumm [facility] Lymphocyte abs 1.7 0.8 - 3.3 K/cumm [facility] Monocyte abs 0.6 0.2 - 0.8 K/cumm [facility] Eosinophil abs 0.1 0.0 - 0.5 K/cumm [facility] Basophil abs 0.1 0.0 - 0.1 K/cumm [facility] Neutrophil pct 69.3 % [facility] Comment: Interpretive Data Percent cell count reference ranges are not reported, since discordance with absolute values may lead to misinterpretation of CBC data. Current Interpretive Data was last revised on 2017. Imm gran pct 0.4 % [facility] Comment: Interpretive Data Percent cell count reference ranges are not reported, since discordance with absolute values may lead to misinterpretation of CBC data. Current Interpretive Data was last revised on 2017. Lymphocyte pct 20.8 % [facility] Comment: Interpretive Data Percent cell count reference ranges are not reported, since discordance with absolute values may lead to misinterpretation of CBC data. Current Interpretive Data was last revised on 2017. Monocyte pct 7.3 % [facility] Comment: Interpretive Data Percent cell count reference ranges are not reported, since discordance with absolute values may lead to misinterpretation of CBC data. Current Interpretive Data was last revised on 2017. Eosinophil pct 1.5 % [facility] Comment: Interpretive Data Percent cell count reference ranges are not reported, since discordance with absolute values may lead to misinterpretation of CBC data. Current Interpretive Data was last revised on 2017. Basophil pct 0.7 % [facility] Comment: Interpretive Data Percent cell count reference ranges are not reported, since discordance with absolute values may lead to misinterpretation of CBC data. Current Interpretive Data was last revised on 2017. Blood 09/04/2024 10:5 1 AM REPAIR ARMATURE WINDER 09/04/2024 11:06 AM REPAIR ARMATURE WINDER us Nabil Newman MD LAB BLOOD ORDERABLES Final Resul t [facility] [address] [facility] [place] [address] * (ABNORMAL) CBC with auto differential (09/04/2024 10:51 AM REPAIR ARMATURE WINDER) Pathologist [facility] WBC 8.1 3.8 - 9.9 K/cumm Hgb 12.4 11.9 - 15.5 g/dL [facility] Hct 38.2 35.6 - 45.5 % [facility] Plt 512(H) 150 - 400 K/cumm [facility] MPV 9.0(L) 9.1 - 12.3 fL [facility] RBC 4.28 3.90 - 5.20 M/cumm [facility] MCV 89.3 81.3 - 96.4 fL [facility] MCH 29.0 27.1 - 33.3 pg [facility] MCHC 32.5 32.3 - 35.7 g/dL [facility] RDW CV 13.0 11.1 - 14.9 % [facility] RDW SD 42.1 35.7 - 48.1 fL [facility] NRBC abs 0.00 0.00 - 0.01 K/cumm [facility] Blood 09/04/2024 10:5 1 AM REPAIR ARMATURE WINDER 09/04/2024 11:06 AM REPAIR ARMATURE WINDER us Nabil Newman MD LAB BLOOD ORDERABLES Final Resul t [facility] [address] [facility] [place] [address] * Gliadin antibody, IgA (09/04/2024 10:51 AM REPAIR ARMATURE WINDER) Pathologist [facility] Anti-gliadin, IgA 4.8 <=14.9 units/mL Comment: Interpretive data Negative: <15 units/mL Positive: > or equal to 15 units/mL Current interpretive data was last revised on 2016. Testing performed by: [facility], [address] [facility], [place]., [address] Blood 09/04/2024 10:5 1 AM REPAIR ARMATURE WINDER 09/04/2024 2:13 PM REPAIR ARMATURE WINDER Nabil Newman MD LAB BLOOD ORDERABLES Final Resul t Performing Organization Address [facility] de Phone Number [address] [address] * Tissue transglutaminase IgA (TGG-IgA Ab) (09/04/2024 10:51 AM REPAIR ARMATURE WINDER) [facility] TTG ab, IgA <0.5 <=14.9 units/mL Comment: Interpretive data Negative: <15 units/mL Positive: > or equal to 15 units/mL Current interpretive data was last revised on 2016. Testing performed by: [facility], [address] [place]., [address] Blood 09/04/2024 10:5 1 AM REPAIR ARMATURE WINDER 09/04/2024 2:10 PM REPAIR ARMATURE WINDER Nabil Newman MD LAB BLOOD ORDERABLES Final Resul t Performing Organization Address [facility] de Phone Number [address] [address] * Lipase (09/04/2024 10:51 AM REPAIR ARMATURE WINDER) [facility] Lipase 40 10 - 99 Units/L Blood 09/04/2024 10:5 1 AM REPAIR ARMATURE WINDER 09/04/2024 11:06 AM REPAIR ARMATURE WINDER Nabil Newman MD LAB BLOOD ORDERABLES Final Resul t Performing Organization Address [facility] de Phone Number [address] [place] [address] * Comprehensive metabolic panel (09/04/2024 10:51 AM REPAIR ARMATURE WINDER) [facility] Sodium 142 135 - 145 mmol/L Potassium, pl 4.1 3.3 - 4.9 mmol/L [facility] Chloride 107 97 - 110 mmol/L [facility] CO2 24 22 - 32 mmol/L [facility] Anion gap 11 2 - 15 mmol/L [facility] BUN 9 6 - 25 mg/dL [facility] Creatinine 0.73 0.60 - 1.10 mg/dL [facility] Glucose 89 70 - 199 mg/dL [facility] Comment: Interpretive Data Fasting glucose >/= 126 [...] 2022. Calcium 9.5 8.5 - 10.3 mg/dL [facility] Bilirubin, total 0.2 0.1 - 1.2 mg/dL [facility] Protein, pl 7.6 6.5 - 8.5 g/dL [facility] Albumin 4.1 3.5 - 5.0 g/dL [facility] Alk phos 70 40 - 130 Units/L [facility] ALT 11 7 - 45 Units/L [facility] AST 21 10 - 45 Units/L [facility] Blood 09/04/2024 10:5 1 AM REPAIR ARMATURE WINDER 09/04/2024 11:06 AM REPAIR ARMATURE WINDER Nabil Newman MD LAB BLOOD ORDERABLES Final Resul t Performing Organization Address [facility] Co de Phone Number [facility] [address] [facility] [place] [address] * Horizon 106 carrier screen - Miscellaneous Test (08/31/2024) Miscellaneous 08/31/2024 Bridget Cheney MD LAB BLOOD ORDERABLES Fin al Result Performing Organization Address City/[facility]/ZIP Co de Phone Number EXTERNAL LAB * US Abdomen Complete (08/25/2024 9:57 AM REPAIR ARMATURE WINDER) Anatomical Region Laterality Modality Abdomen N/A Ultrasound 08/25/2024 10:0 4 AM REPAIR ARMATURE WINDER Impressions 08/25/2024 10:14 AM REPAIR ARMATURE WINDER Normal abdominal sonogram. Dictated by: Navya Jenkins M.D. The radiology attending physician has personally reviewed this study, and had reviewed and/or edited this written report and agrees with it. Electronically signed by: Jane Patton M.D. Narrative 08/25/2024 10:14 AM REPAIR ARMATURE WINDER EXAMINATION: COMPLETE ABDOMINAL SONOGRAM HISTORY: 29-year-old female [...] by: Jane Patton M.D. Nabil Newman MD [facility] [place] PROCEDURES Final Result * CTA Heart and Coronary Arteries W Morphology when Performed (08/21/2024 2:41 PM REPAIR ARMATURE WINDER) Anatomical Region Laterality Modality Chest N/A Computed Tomogra phy 08/21/2024 3:05 PM REPAIR ARMATURE WINDER Impressions 08/21/2024 3:33 PM REPAIR ARMATURE WINDER 1. Calculated calcium score of 0. 2. No atherosclerotic disease. 3 Normal left ventricular size and function. Ejection Fraction 62% without regional wall motion abnormalities. Dictated by: Kendall Lauren M.D. The radiology attending physician has personally reviewed this study, and had reviewed and/or edited this written report and agrees with it. Electronically signed by: Brian Pederson M.D. Narrative 08/21/2024 3:33 PM REPAIR ARMATURE WINDER EXAMINATION: CORONARY CT ANGIOGRAM HISTORY: Abnormal stress [...] d * POCT creatinine (08/21/2024 2:19 PM REPAIR ARMATURE WINDER) Creatinine POC 0.7 0.6 - 1.1 mg/dL Blood 08/21/2024 2:19 PM REPAIR ARMATURE WINDER 08/21/2024 2:19 PM REPAIR ARMATURE WINDER Karly Flores MD LAB POCT ORDERABLES - D EVICE Final Result [facility] Department [place] [address] * NM MPI SPECT (Rest and/or Stress) Multiple Studies (07/07/2024 11:51 AM REPAIR ARMATURE WINDER) Anatomical Region Laterality Modality Body N/A Nuclear Medicine 07/07/2024 8:40 AM REPAIR ARMATURE WINDER Narrative 07/07/2024 12:48 PM REPAIR ARMATURE WINDER [facility] Cardiology [address] [facility] [address], [place] [address] [address] [facility] [address], [place] [address] P:[phone] P:[phone] MPI Imaging Report Patient Name: SHARDA STARK K : 1995 Study Date: 07/07/2024 8:40:18 AM Gender: F Tech: [facility] Location: Testing Center Ref Provider: KARLY [...] By: Dave Lutz MD 07/07/2024 12:48:28 PM REPAIR ARMATURE WINDER Electronically Signed By: Dave Lutz MD 07/07/2024 12:48:28 PM REPAIR ARMATURE WINDER Procedure Note Dave Lutz MD - 07/07/2024 [facility] Medical [facility] Cardiology [address] [facility] [address] [id number] [place] [address] [address], [place] [address] P:[phone] P:[phone] MPI Imaging Report Patient Name: SHARDA STARK K : 1995 Study Date: 07/07/2024 8:40:18 AM Gender: F Tech: [facility] Location: Testing Center Ref Provider: KARLY FLORES [...] By: Dave Lutz MD 07/07/2024 12:48:28 PM REPAIR ARMATURE WINDER Electronically Signed By: Dave Lutz MD 07/07/2024 12:48:28 PM REPAIR ARMATURE WINDER Ripa James Flores MD IMG NM PROCEDURES Final Result * HM PAP SMEAR WITH HPV (03/14/2020) Scribed Pap Smear w/HPV Normal us Historical Provider HEALTH MAINTENANCE Final Result from Last 3 Months or Most Recently Relevant to Health Maintenance Insurance [address] [place] [address] [facility] Care Teams 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
--- OUTSIDE RECORDS SUMMARY | 2024-09-23 02:47 | XMS_ITS | Clinical Summary ---
Author Organization [facility] Address [address] [place] [address] Care Team Providers Care Bottle Carrier Name Role Phone None, Provider MD Primary [...] often do you attend chur ch or temple services? Never 04/11/2020 Do you belong to any clubs o r organizations such as islam groups, unions, fraternal or athletic groups, or [...] medical care, and heating? Somewhat hard 04/11/2020 [facility] - Occupational Stress Questionnaire Answer Date [...] perform ADLs independently General No Lilli Levy, LABEL PINKER Procedures Procedure Name Priority Date/Time Associated Diagnosis Comments CHLAMYDIA GC RNA STAT 12/28/2023 12:1 5 PM CDT from Last 3 Months or Most Recently Relevant to Health Maintenance Results * CHLAMYDIA GC RNA (12/28/2023 12:15 PM CDT) SPEC DESCRIPTION VAGINAL SPECIMEN 12/28/2023 2:34 PM CDT [facility] CHLAMYDIA RNA TMA NEGATIVE NEGATIVE 024 12:14 AM CDT [facility] Comment:PERFORMED BY NUCLEIC ACID AMPLIFICATION N.GONORRHOEAE RNA TMA NEGATIVE NEGATIVE 12/30/2023 12:14 AM CDT [facility] Comment:PERFORMED BY NUCLEIC ACID AMPLIFICATION VAGINAL STRUCTURE / Unknown 12/28/2023 12:15 PM CDT Katy Hernandez [facility] MICROBIOLOGY - GENERAL VIDYA CASTANEDA Final Result [facility] [address] [place] [address], [facility] [address] [place] [address], [place] [phone] from Last 3 Months or Most Recently Relevant to Health Maintenance Insurance [employer] Advance Directives * Full Code (Latest Code Status on File) Date Activated Date Inactivated Comments 04/11/2020 12:24 AM 04/15/2020 9:39 PM Care Teams Bottle Carrier Relationship Specialty Start Date End Date None, Provider, PCP - General 04/10/20
--- OUTSIDE RECORDS SUMMARY | 2024-09-23 02:47 | XMS_ITS | Clinical Summary ---
Author Organization [facility] Address [address] [place] [address] Phone Care Team Providers Care Sccm Administrator Name Role Phone Unavailable Primary Care Provider [...] Data STL ABSTRACTION Provider, Abstract 08/14/2024 Telephone [facility] Neurology [address] [facility] [address] [place] [address] Nolan Robbins MD Medication Authorization 08/01/2024 External Device Data STL ABSTRACTION Provider, Abstract 07/27/2024 Telephone [facility] Neurology [address] [facility] [address] [place] [address] Liliam Duong RN Carter- Jason Adverse Event Report 07/26/2024 External Device Data STL ABSTRACTION Provider, Abstract 07/26/2024 External Device Data STL ABSTRACTION Provider, Abstract 07/24/2024 Telephone [facility] Neurology [address] [facility] [address] [place] [address] Nolan Robbins MD Appointment Notification 07/24/2024 Results Follow-Up [facility] Neurology - [address] [place] [address] Nolan Robbins MD CBC WITH DIFFERENTIAL, DNA AUTOABS DOUBLE STRANDED, SEDIMENTATION RATE 07/10/2024 Telephone [facility] Neurology [address] [place] [address] Nolan Robbins MD NEW BLOOD ORDER from [...] SEDIMENTATION RATE Routine 07/21/2024 12 :20 PM OFFSET PRESS OPERATOR APPRENTICE Rash DNA AUTOABS DOUBLE STRANDED Routine 07/21/2024 12:20 PM OFFSET PRESS OPERATOR APPRENTICE Rash CBC WITH DIFFERENTIAL Routine 07/21/2024 12:20 PM OFFSET PRESS OPERATOR APPRENTICE Relapsing-remittin g multiple sclerosis (CMS/HCC) Bruises easily KARLENE SCREEN W/REFLEX Routine 07/21/2024 1 2:20 PM OFFSET PRESS OPERATOR APPRENTICE Rash from Last 3 Months Results * DNA AUTOABS DOUBLE STRANDED (07/21/2024 12:20 PM OFFSET PRESS OPERATOR APPRENTICE) Pathologist [facility] DNA AUTOABS DOUBLE STRANDED <1 IU/mL [facility] Comment: IU/mL Interpretation < or = 4 Negative 5-9 Indeterminate > or = 10 Positive Test Performed at: [facility] [address] [place] [address] Rimma Chaparro MD Blood 07/21/2024 12:2 0 PM OFFSET PRESS OPERATOR APPRENTICE 07/21/2024 12:20 PM OFFSET PRESS OPERATOR APPRENTICE us Nolan Robbins MD CHEMISTRY ORDERABLES Final Resul t [facility] [phone] [facility] [address] [place] [address] * (ABNORMAL) CBC WITH DIFFERENTIAL (07/21/2024 12:20 PM OFFSET PRESS OPERATOR APPRENTICE) WBC 8.1 3.8 - 10.8 Thousand/ uL [facility] RBC 4.12 3.80 - 5.10 Million/u L Elijah [facility] HEMOGLOBIN 12.2 11.7 - 15.5 g/dL [...] [facility] Comment: Test Performed at: [facility] [address] [place] [address] Rimma Mariano Vo Blood 07/21/2024 12:2 0 PM OFFSET PRESS OPERATOR APPRENTICE 07/21/2024 12:20 PM OFFSET PRESS OPERATOR APPRENTICE us Nolan Robbins MD HEMATOLOGY ORDERABLES Final Resu lt [facility] [phone] [facility] [place] [address] [place] [address] * SEDIMENTATION RATE (07/21/2024 12:20 PM OFFSET PRESS OPERATOR APPRENTICE) ESR (SEDIMENTATION RATE) 14 < OR = 20 mm/h [facility] Comment: Test Performed at: [facility] [address] [place] [address] Rimma Chaparro Blood 07/21/2024 12:2 0 PM OFFSET PRESS OPERATOR APPRENTICE 07/21/2024 12:20 PM OFFSET PRESS OPERATOR APPRENTICE us Nolan Robbins MD HEMATOLOGY ORDERABLES Final Resu lt [facility] [phone] [place] [address] [place] [phone] * (ABNORMAL) KARLENE SCREEN W/REFLEX (07/21/2024 12:20 PM OFFSET PRESS OPERATOR APPRENTICE) KARLENE SCREEN POSITIVE( A) NEGATIVE [facility] [place] Comment: KARLENE IFA is a first line screen for detecting the presence of up to approximately 150 autoantibodies in various autoimmune diseases. A positive KARLENE IFA result is suggestive of autoimmune disease and reflexes to titer and pattern. Further laboratory testing may be considered if clinically indicated. For additional information, please refer to http://education.[employer]/faq/RLT112 (This link is being provided for informational/ educational purposes only.) KARLENE TITER 1:80(H) titer [facility] Comment: A low level KARLENE titer may be present in pre-clinical autoimmune diseases and normal individuals. Reference Range <1:40 Negative 1:40-1:80 Low Antibody Level >1:80 Elevated Antibody Level KARLENE PATTERN Cytoplasm ic(A) [facility] Comment: The presence of cytoplasmic fluorescence was noted on the HEp-2 slide. Other reactivities (e.g., anti- mitochondrial antibodies or anti-smooth muscle antibodies) may be responsible for this fluorescence. The clinical significance of this finding is uncertain. Clinical correlation is recommended. AC-15 to AC-23: Cytoplasmic International Consensus on KARLENE Patterns (https://doi.org/10.1515/uvoe-6270-2624) Test Performed at: [facility] [address], [place] [address] Rimma Chaparro MD Blood 07/21/2024 12:2 0 PM OFFSET PRESS OPERATOR APPRENTICE 07/21/2024 12:20 PM OFFSET PRESS OPERATOR APPRENTICE us Nolan Robbins MD CHEMISTRY ORDERABLES Final Resul t [facility] [phone] [facility] [address] [place] [phone] from Last 3 Months Insurance [facility] MEDICAID
--- OUTSIDE RECORDS SUMMARY | 2024-09-23 02:47 | XMS_ITS | Encounter Summary ---
Author Organization [facility] Healthcare Address [address] [place] [address] Care Team Providers Care Director Utilization Management Name Role Phone Romeo Mcqueen MD Primary Care Provider [phone] Car Romero MD Unavailable [phone] Evans Mota MD Unavailable Nolan Robbins MD Unavailable Encounter Details Date Type Department Care Team (Late st Contact Info) Description 09/12/2024 Results Follow-Up [facility] Medical Group Gastroenterology at [address] [place] [address] Nabil Newman MD [address] [place] [address] [address] [place] [address] Social History Tobacco Use Types [...] on file Legal Sex Female 7:38 PM ORDNANCE KEEPER Gender Identity Not on file Sexual Orientation [...] on filedocumented in this encounter Care Teams Director Utilization Management Relationship Specialty Start Date End Date Romeo Mcqueen MD PCP - General Family Medicine 02/16/22 Car Romero MD [address] [place] [address] Consulting Physician Pain Management 10/17/23 Evans Mota MD [address] [place] [address] Consulting Physician Neurology 01/25/24 Nolan Robbins MD [address] [facility] [address] [place] [address] Consulting Physician Neurology 01/25/24 documented as of this encounter
--- OUTSIDE RECORDS SUMMARY | 2024-09-23 02:47 | XMS_ITS | Encounter Summary ---
Author Organization [facility] Address [address] [facility] [place] [address] Care Team Providers Care Network Security Architect Name Role Phone Romeo Mcqueen MD Primary Care Provider [phone] Reason for Visit * Reason Onset Date Comments Appointment 05/14/2023 Medication Problem 05/14/2023 Encounter Details Date Type Department Care Team (Late st Contact Info) Description 05/14/2023 Telephone [facility] - Dermatology [address] [place] [address], [facility] [place] [address] Nga Mccullough MD [address] [place] [address] [place] [address] Appointment; Medication Problem Social History [...] - 07/23/2023 3:13 PM CST Tanya from [facility] is calling in regards of pt a cancelled script of clobetasol 0.05%. She statesthey reached out to pt and pt says she still uses medication. [facility] would like to confirm the cancellation [phone] R RESOURCES TECHNICAL OFFICER * Telephone Encounter - Gifty Marino - 05/14/2023 11:18 AM CST Pt is concerned about her head hurting where she had her biopsy and accidentally missed her appointment and is needing to be seen soon as possible she has been scheduled for next available R RESOURCES TECHNICAL OFFICER documented in this encounter Plan of Treatment Upcoming Encounters Date Type Department Care Team (Late st Contact Info) Description 04/20/2025 9:00 AM CDT Office Visit [facility] - Dermatology [address] [place] [address], [place] [address] Nga Mccullough MD [address] [place] [address] [address] [place] [address] documented as of this encounter Visit Diagnoses Not on filedocumented in this encounter Care Teams Network Security Architect Relationship Specialty Start Date End Date Romeo Mcqueen MD [address] [facility] [address] [place] [phone] PCP - General Family Medicine 11/20/22 documented as of this encounter
--- OUTSIDE RECORDS SUMMARY | 2024-09-23 02:47 | XMS_ITS | Clinical Summary ---
Author Organization [facility] Address [address] [facility] [address] [facility] [place] [address] Care Team Providers Care Journeyman Painter Name Role Phone Romeo Mcqueen MD Primary Care Provider [phone] Source Comments [facility],non-owned Affiliates and Associated Physician Practices is amultiple site organization consisting of ambulatory clinics and hospital sitesin [place], [place], [place] and [place]. This disclosure is being madepursuant to the Care Everywhere program and may not contain all information available regarding this patient. Last updated 18.[facility] Allergies Active Allergy Reactions Criticality Noted Date Comments Glatiramer Rash Medium 02/15/2023 Medications * Be aware that medications may not be up to date on this document. Alwaysverify current medications with the patient. Medication Sig Dispensed Refills Start Date End Date Status VITAMIN D PO Active TECFIDERA kitIndications:M S (multiple sclerosis) ([facility]) Take 1 (one) kit by mouth as [...] Treatment: New Medication: Prednisone Follow up PRN CHIEF MAINTENANCE SUPERVISOR demyelination 02/18/2021 Acute vaginitis 02/12/2021 Tonsillitis 01/28/2021 [...] 09/12/2024 Refill [facility] - Dermatology [facility] [facility], [place] [address] Nga Mccullough MD Refill Request 09/08/2024 1:44 PM DIRECTOR OF INDUSTRIAL RELATIONS - 09/08/2024 11:59 PM DIRECTOR OF INDUSTRIAL RELATIONS Hospital Encounter AM RADIOLOGY [address] [place] [address] Kelly Stafford MD Discharge Disposition: Home or Self Care 09/08/2024 1:23 PM DIRECTOR OF INDUSTRIAL RELATIONS - 09/08/2024 1:43 PM DIRECTOR OF INDUSTRIAL RELATIONS Hospital Encounter [facility] - Laboratory [address] [place] [address] Kelly Stafford MD Strzembosz, Andre S, MD Discharge Disposition: Home or Self Care 08/29/2024 Refill [facility] - Dermatology [address] [place] [address], [place] [address] Nga Mccullough MD Refill Request 08/03/2024 Refill [facility] - Dermatology [address] [place] [address], [place] [address] Nga Mccullough MD Refill Request 07/07/2024 Refill [facility] - General Dermatology [address] , [facility] [address] [place] [address] Nga Mccullough MD MEDICATION REFILL 07/06/2024 Refill [facility] - Dermatology [address] [place] [address], [place] [address] Nga Mccullough MD Refill Request from Last [...] Comments Blood Pressure 116/80 09/08/2023 1:06 PM DIRECTOR OF INDUSTRIAL RELATIONS Pulse 80 09/08/2023 1:06 PM DIRECTOR OF INDUSTRIAL RELATIONS Temperature 36.1 C (97 F) 06/07/2023 11:12 AM DIRECTOR OF INDUSTRIAL RELATIONS Respiratory Rate 14 08/11/2023 11:57 AM DIRECTOR OF INDUSTRIAL RELATIONS Oxygen Saturation 100% 08/11/2023 11:57 AM DIRECTOR OF INDUSTRIAL RELATIONS Inhaled Oxygen Concentration - - Weight 80.6 kg (177 lb 9.6 oz) 09/08/2023 1:06 P M DIRECTOR OF INDUSTRIAL RELATIONS Height 154.9 cm (5' 1 ) 01/12/2024 12:59 PM CDT Body Mass Index 33.56 09/08/2023 1:06 PM DIRECTOR OF INDUSTRIAL RELATIONS Plan of Treatment Upcoming Encounters Date Type Department Care Team (Late st Contact Info) Description 04/20/2025 9:00 AM CDT Office Visit [facility] - Dermatology [address] [place] [address], [place] [address] Nga Mccullough MD [address] [place] [address] [address] [place] [address] Health Maintenance Due Date Last Done Comments [...] Diagnosis Comments [place] HYSTEROSALPINGOGRAM Routine 3:11 PM DIRECTOR OF INDUSTRIAL RELATIONS Female infertility HCG BLOOD QUALITATIVE STAT 09/08/2024 1:24 PM DIRECTOR OF INDUSTRIAL RELATIONS Female infertility HEPATITIS C ANTIBODY Routine 11/07/2020 12:13 PM CDT CHIEF MAINTENANCE SUPERVISOR demyelination Encephalitis Need for hepatitis C screening test HIV-1 HIV-2 ANTIGEN/ANTIBODY Routine 11/07/2020 12:13 PM CDT Abnormal brain MRI CHIEF MAINTENANCE SUPERVISOR demyelination Encephalitis from Last 3 Months or Most Recently Relevant to Health Maintenance Results * [place] HYSTEROSALPINGOGRAM [id number] (09/08/2024 3:11 PM DIRECTOR OF INDUSTRIAL RELATIONS) Anatomical Region Laterality Modality Abdomen, Pelvis Computed Radiogr aphy 09/08/2024 5:06 PM DIRECTOR OF INDUSTRIAL RELATIONS Impressions 09/08/2024 5:08 PM DIRECTOR OF INDUSTRIAL RELATIONS IMPRESSION: NORMAL HYSTEROSALPINGOGRAM. THERE IS BILATERAL FALLOPIAN TUBE PATENCY. NO ENDOMETRIAL CAVITY CONTOUR ABNORMALITIES ARE SEEN. > Interpreting Provider: Zane Sykes MD on 09/08/2024 5:08 PM Narrative 09/08/2024 5:08 PM DIRECTOR OF INDUSTRIAL RELATIONS PROCEDURE: FL HYSTEROSALPINGOGRAM, DATE/TIME OF EXAM: 09/08/2024 3:14 PM, LOCATION [facility] INDICATION: N97.9: Female infertility ADDITIONAL CLINICAL INFORMATION: [...] HYSTEROSALPINGOGRAM, DATE/TIME OF EXAM: 09/08/2024 3:14PM, LOCATION [facility] INDICATION: N97.9: Female infertility ADDITIONAL CLINICAL INFORMATION: [...] * HCG BLOOD QUALITATIVE (09/08/2024 1:24 PM DIRECTOR OF INDUSTRIAL RELATIONS) HCG Qual Serum Negative Negative 09/08/2024 2:06 PM DIRECTOR OF INDUSTRIAL RELATIONS [facility] Blood BLOOD SPECIMEN / Unknown Venipuncture / Unknown 09/08/2024 1:24 PM DIRECTOR OF INDUSTRIAL RELATIONS 09/08/2024 1:33 PM DIRECTOR OF INDUSTRIAL RELATIONS Zane Sykes MD LAB - CHEMISTRY OR DERABLES [facility] [address] [place], [place] [address] * HIV-1 HIV-2 ANTIGEN/ANTIBODY (11/07/2020 12:13 PM CDT) HIV Antigen/Antibod y 1 & 2 Non-reacti ve Non-react luis e 11/07/2020 2:06 PM CDT [facility] Comment:Neither HIV-1 p24 An tigen nor HIV-1/HIV-2 Antibodies are detected. Blood BLOOD SPECIMEN / Unknown Lab Venipuncture / Unknown 11/07/2020 12:13 PM CDT 11/07/2020 1:18 PM CDT Dustin Espinal MD LAB - HEMATOLOGY ORDERABLES [address] [address], [place] [phone] * HEPATITIS C ANTIBODY (11/07/2020 12:13 PM CDT) Hepatitis C Antibody Non-react luis e Non-reac tive 11/07/2020 2:06 PM CDT [facility] Comment:Hepatitis C Antibody screen indicates no serologic [...] Dustin Espinal MD LAB - CHEMISTRY ORDERABLES [address] [address], [place] [phone] from Last 3 Months or Most Recently Relevant to Health Maintenance Advance Directives * Full Code (Latest Code Status on File) Date Activated Date Inactivated Comments 07/20/2020 7:14 AM 07/21/2020 12:19 PM Care Teams Journeyman Painter Relationship Specialty Start Date End Date Romeo Mcqueen MD [address] [facility] [address] [place] [place] [phone] PCP - General Family Medicine 11/20/22
--- OUTSIDE RECORDS SUMMARY | 2024-09-23 02:47 | XMS_ITS | Referral Summary ---
Author Organization [facility] at the Medical Office Building Address [facility] [place] [address] Care Team Providers Care Economic Adviser Name Role Phone Romeo Mcqueen MD Primary Care Provider [phone] Car Romero MD Unavailable Evans Mota MD Unavailable Nolan Robbins MD Unavailable Encounters Date Type Department Care Team Description 09/19/19 Telephone [facility] Gastroenterology at [address] [place] [address] Nabil Newman MD 09/16/19 25 Telephone [facility] Obstetrics and Gynecology [address] [facility] 7th Floor [address] [place] [phone] Nicky Green CGC 09/14/19 8:06 PM CDT - 09/14/19 11:59 PM CDT Hospital Encounter [facility] [address] [place] [address] Multiple sclerosis (HCC) Discharge Disposition: Discharge to home or self care 09/13/19 Results Follow-Up [facility] Gastroenterology at [address] [place] [phone] Nabil Newman MD 09/12/19 10:58 AM CDT Anesthesia Event [facility] GI Lab [address] [place] [address] Liliam Blunt MD 09/12/19 9:30 AM CDT - 09/12/19 10:00 AM CDT Surgery [facility] GI Lab [address] [place] [address] Nabil Newman MD ESOPHAGOGASTRODUODENOSCOPY BIOPSY 09/12/19 9:02 AM CDT - 09/12/19 12:12 PM CDT Hospital Encounter [facility] GI Lab [address] [place] [address] Nabil Newman MD Abdominal pain; Change in bowel habits; Chronic idiopathic constipation Discharge Disposition: Discharge to home or self care 09/05/19 Telephone [facility] [address] [facility] [address] [place] [phone] Kelly Sharma [facility] 09/05/19 10:30 AM EDUCATION INSTRUCTOR Lab [facility] Lab [address] [place] [address] Abdominal pain 09/01/19 Telephone [facility] [address] [facility] [address] [place] [address] Nael Cunningham MD 09/01/19 Telephone [facility] [address] [facility] [address] [place] [address] Raphael Cedillo MA 08/31/19 25 Orders Only [facility] Gastroenterology at [place] [address] [facility] [address] [place] [address] Nabil Newman MD Abdominal pain (Primary Dx); Change in bowel habits; Chronic idiopathic constipation 08/31/19 25 Orders Only [facility] Obstetrics and Gynecology [facility] Health 7th Floor [address] [place] [address] Nicky Green [facility] Encounter of female for testing for genetic disease carrier status for procreative management (Primary Dx) 08/31/19 25 11:00 AM EDUCATION INSTRUCTOR Procedure visit [facility] Obstetrics and Gynecology [address] [facility] 7th [place] [address] Genetic screening (Primary Dx) 08/31/19 10:00 AM EDUCATION INSTRUCTOR Clinical Support [facility] Obstetrics and Gynecology [address] [facility] 7th Floor [address] [place] [address] Encounter of female for testing for genetic disease carrier status for procreative management (Primary Dx); Encounter for preconception consultation; Encounter for procreative genetic counseling 08/28/19 Telephone [facility] Cardiology [address] [facility] [address] [place] [phone] Karly Flores MD Pre Op form GI 08/25/19 Results Follow-Up [facility] Gastroenterology at [address] [place] [phone] Nabil Newman MD 08/25/19 9:00 AM EDUCATION INSTRUCTOR - 08/25/19 11:59 PM EDUCATION INSTRUCTOR Hospital Encounter [facility] [address] [place] [address] Abdominal pain Discharge Disposition: Discharge to home or self care 08/24/19 Results Follow-Up [facility] Cardiology [address] [facility] [address] [place] [address] Karly Flores MD 08/22/19 Telephone [facility] [address] [facility] [address] [place] [address] Liliam Mcbride RN 08/21/19 1:49 PM EDUCATION INSTRUCTOR - 08/21/19 11:59 PM EDUCATION INSTRUCTOR Hospital Encounter [facility] ([facility]) [address] [place] [address] Abnormal cardiovascular stress test; Other chest pain Discharge Disposition: Discharge to home or self care 08/17/19 Telephone [facility] Gastroenterology at [address] [place] [phone] Nabil Newman MD Scheduling Appointments 08/09/19 8:00 AM EDUCATION INSTRUCTOR Telemedicine [facility] Obstetrics and Gynecology [address] [facility] [address] [place] [address] Encounter for preconception consultation (Primary Dx); Chronic migraine without aura without status migrainosus, not intractable; Multiple sclerosis (HCC) 08/08/19 Documentation [facility] [address] [place] [address] Tabitha Haque MD 07/28/19 8:45 AM EDUCATION INSTRUCTOR Office Visit [facility] Gastroenterology at [address] [place] [address] Nabil Newman MD Change in bowel habits (Primary Dx); Abdominal pain; Chronic idiopathic constipation; Abnormal stress test 07/18/19 Telephone [facility] [address] [facility] Health 7th Floor [address] [place] [address] Ana West RN 07/18/19 2:00 PM EDUCATION INSTRUCTOR Office Visit [facility] [address] [facility] [address] [place] [address] Nael Cunningham MD Multiple sclerosis (HCC) (Primary Dx); Multiple sclerosis (HCC); Intractable chronic migraine without aura and without status migrainosus 07/11/19 Telephone [facility] Cardiology [address] [place] [address] [place] [phone] Karly Flores MD 07/07/19 8:15 AM EDUCATION INSTRUCTOR Ancillary Procedure [facility] Cardiology [address] [place] [address] [place] [phone] Shortness of breath; Other chest pain [...] week 12 capsule 3 02/01/20 24 Active [id number] acid 27-800 mg-mcg tablet Take 1 tablet [...] 07/28/2024 Assessment & Plan (07/28/2024 8:56 AM EDUCATION INSTRUCTOR): Worsening constipation over the past few years. [...] 07/28/2024 Assessment & Plan (07/28/2024 8:57 AM EDUCATION INSTRUCTOR): Recent abnormal stress test, noted plans for coronary CTA. -We will request cardiac clearance prior EGD and colonoscopy Chronic migraine without aur a without status migrainosus, not intractable 11/17/2023 Overview (11/17/2023): Please see my note 11/17/2023 for details regarding headache history. Assessment & Plan (06/20/2024 1:48 PM EDUCATION INSTRUCTOR): The patient has chronic migraine, as well [...] will be seeing MS provider here at [facility]. Assessment & Plan (01/05/2024 1:32 [...] noted. Assessment & Plan (07/27/2023 11:23 AM EDUCATION INSTRUCTOR): Given ongoign pain in the Ts will get updated XR. Intractable chronic migraine without aura and without status migrainosus 07/12/2023 Assessment & Plan (07/18/2024 3:28 PM EDUCATION INSTRUCTOR): The patient has a long history of [...] 04/12/2022 Assessment & Plan (07/28/2024 8:56 AM EDUCATION INSTRUCTOR): Chronic constipation, getting progressively worse over the past few years. Patient has failed [id number] laxatives like MiraLax. Takes Linzess p.r.n. -High-fiber [...] None Assessment & Plan (07/18/2024 3:32 PM EDUCATION INSTRUCTOR): The patient is presenting to establish care [...] persists. She was following up with a head machine feeder for further evaluation of her GI issues [...] back pain and balance difficulties. Continue vitamin-D 36236 units weekly. We will Assessment & Plan (03/08/2024 4:56 PM CDT): Continue duloxetine. Continue to follow with neurology. Assessment & Plan (12/10/2023 9:02 AM CDT): Following Dr. Massey as well as Dr. Liu. Reports she may be switching from Dr. Liu as he may not be in network. Duloxetine remains the most helpful option. Assessment & Plan (07/27/2023 11:22 AM EDUCATION INSTRUCTOR): Continue dosing of duloxetine. Following with neurology. [...] f/u imaging will be. Referred to PT. BURN TABLE OPERATOR demyelination 02/18/2021 Chronic tonsillitis 01/28/2021 Assessment & [...] Resolve Assessment & Plan (07/28/2024 8:55 AM EDUCATION INSTRUCTOR): Chronic lower abdominal pain, radiates to the [...] on file Legal Sex Female 7:38 PM EDUCATION INSTRUCTOR Gender Identity Not on file Sexual Orientation [...] cm (5' 1 ) 07/28/2024 8:34 AM EDUCATION INSTRUCTOR Body Mass Index 34.01 07/28/2024 8:34 AM EDUCATION INSTRUCTOR Plan of Treatment Not on file Goals [...] AM CDT EGFR Routine 09/04/2024 10:51 AM EDUCATION INSTRUCTOR Abdominal pain DIFFERENTIAL AUTO Routine 09/04/2024 10:51 AM EDUCATION INSTRUCTOR Abdominal pain GLIADIN ANTIBODY, IGA Routine 09/04/2024 10:51 AM EDUCATION INSTRUCTOR Abdominal pain TISSUE TRANSGLUTAMINASE, IGA Routine 09/2024 10:51 AM EDUCATION INSTRUCTOR Abdominal pain CBC WITH AUTO DIFFERENTIAL Routine 09/04 10:51 AM EDUCATION INSTRUCTOR Abdominal pain COMPREHENSIVE METABOLIC PANEL Routine 10:51 AM EDUCATION INSTRUCTOR Abdominal pain LIPASE Routine 09/04/2024 10:51 AM EDUCATION INSTRUCTOR Abdominal pain CELIAC DISEASE ANTIBODY SCREEN Routine 0 09/04/2024 10:51 AM EDUCATION INSTRUCTOR Abdominal pain MISCELLANEOUS LAB TEST Routine 08/31/2024 Encounter of female for testing for genetic disease carrier status for procreative management US ABDOMEN COMPLETE Schedule Routine, Read Routine (OP Routine) 08/25/2024 9:57 AM EDUCATION INSTRUCTOR Abdominal pain CT HEART MORPHOLOGY AND CORONARY ARTERIES W CONTRAST Schedule Routine, Read Routine (OP Routine) 08/21/2024 2:41 PM EDUCATION INSTRUCTOR Abnormal cardiovascular stress test Other chest pain POCT CREATININE - DEVICE Routine 025 2:19 PM EDUCATION INSTRUCTOR NM MPI SPECT (REST AND/OR STRESS) MULTIPLE STUDIES Schedule Routine, Read Routine (OP Routine) 07/07/2024 11:51 AM EDUCATION INSTRUCTOR Shortness of breath Other chest pain HM [...] intravenous contrast using the standard protocol. Scanner: [facility] Field Strength: 3T Contrast information: 16 mL Gadoterate Meglumine IV The post-contrast brain scan was performed approximately 12 minutes after IV contrast administration. COMPARISON: MRI cervical spine dated 01/02/2023, MRI of brain dated 03/02/2023 FINDINGS: BRAIN: There are a few unchanged periventricular T2/FLAIR white matter hyperintensities. New Brain T2 Lesions: None. T1 Hypointense Black Holes : 1 Enhancing Brain Lesions: None. T2/FLAIR [place] of Disease: Mild, less than 10 typical [...] intravenous contrast using the standard protocol. Scanner: [facility] Field Strength: 3T Contrast information: 16 mL Gadoterate Meglumine IV The post-contrast brain scan was performed approximately 12 minutes after IV contrast administration. COMPARISON: MRI cervical spine dated 01/02/2023, MRI of brain dated 03/02/2023 FINDINGS: BRAIN: There are a few unchanged periventricular T2/FLAIR white matter hyperintensities. New Brain T2 Lesions: None. T1 Hypointense Black Holes : 1 Enhancing Brain Lesions: None. T2/FLAIR [place] of Disease: Mild, less than 10 typical [...] intravenous contrast using the standard protocol. Scanner: [facility] Field Strength: 3T Contrast information: 16 mL Gadoterate Meglumine IV The post-contrast brain scan was performed approximately 12 minutes after IV contrast administration. COMPARISON: MRI cervical spine dated 01/02/2023, MRI of brain dated 03/02/2023 FINDINGS: BRAIN: There are a few unchanged periventricular T2/FLAIR white matter hyperintensities. New Brain T2 Lesions: None. T1 Hypointense Black Holes : 1 Enhancing Brain Lesions: None. T2/FLAIR [place] of Disease: Mild, less than 10 typical [...] : 1 Enhancing Brain Lesions: None. T2/FLAIR [place] of Disease: Mild, less than 10 typical [...] biopsy) 09/11/2024 11:05 AM CDT Narrative PATHOLOGY [facility] - 09/12/2024 2:14 PM CDT [facility] Department of Pathology [address] [place] [address] Note to Patients: This report may contain [...] : 1995 (Age: 29) Gender: F Address: [address] [place] [address] [facility] #: [id number] Service: Gastro Location: Patient Type: [facility] OUTPATIENT Taken: 09/11/2024 Received: 09/11/2024 Accessioned: [...] cm. Entirely submitted. Labeled C1. Jar 0. [facility]/09/11/2024 13:38 MISHA Baig, PA (ASCP) Microscopic slide review and interpretation for this case was performed at [facility], Department of Surgical Pathology, [address] [facility], [id number], [place] [address] CLIA # [id number] us Nabil Newman MD LAB PATHOLOGY ORDERABLES Final R esult PATHOLOGY [facility] * EGD (09/11/2024 10:15 AM CDT) Anatomical Region Laterality Modality Other Narrative Procedure Note Nabil Newman MD - 09/11/2024 10:15 AM CDT [facility] GI ENDOSCOPY Patient Name: Sharda Stark Procedure Date: 09/11/2024 10:15 AM Date of : 1995 Admit Type: Outpatient Age: 29 Gender: Female Attending MD: Nabil Newman M.D. Room: [facility] ENDOSCOPY ROOM 03 Note Status: Finalized Procedure: [...] On: 09/11/2024 10:15 AM Recognized by the [employer] for promoting quality in endoscopy us Nabil Newman MD ENDOSCOPY PROCEDURES Final Resul t * Colonoscopy (09/11/2024 10:14 AM CDT) Anatomical Region Laterality Modality Other Narrative Procedure Note Nabil Newman MD - 09/11/2024 10:14 AM CDT [facility] GI ENDOSCOPY Patient Name: Sharda Stark Procedure Date: 09/11/2024 10:14 AM Date of : 1995 Admit Type: Outpatient Age: 29 Gender: Female Attending MD: Nabil Newman M.D. Room: [facility] ENDOSCOPY ROOM 03 Note Status: Finalized Procedure: [...] On: 09/11/2024 10:14 AM Recognized by the [employer] for promoting quality in endoscopy Nabil Newman MD ENDOSCOPY PROCEDURES Final Resul t * POCT hCG, urine (09/11/2024 9:53 AM CDT) HCG, ur, POC Negative Negative Lot Number [id number] QC Backgroud Clear Acceptable QC Control Line Acceptable Urine 09/11/2024 9:53 AM CDT Dave Zurita MD POINT OF CARE TEST ORDERABLES Final Result * eGFR (09/04/2024 10:51 AM EDUCATION INSTRUCTOR) eGFR >90 >=60 mL/min/1. 73 m2 Comment: [...] reviewed 2021. Blood 09/04/2024 10:5 1 AM EDUCATION INSTRUCTOR 09/04/2024 11:06 AM EDUCATION INSTRUCTOR us Nabil Newman MD LAB BLOOD ORDERABLES Final Resul t [facility] [address] [facility] Department [place] [address] * Differential, auto (09/04/2024 10:51 AM EDUCATION INSTRUCTOR) Pathologist [facility] Neutrophil abs 5.6 1.5 - 6.5 K/cumm Imm gran abs 0.0 0.0 - 0.1 K/cumm [facility] Lymphocyte abs 1.7 0.8 - 3.3 K/cumm [facility] Monocyte abs 0.6 0.2 - 0.8 K/cumm [facility] Eosinophil abs 0.1 0.0 - 0.5 K/cumm [facility] Basophil abs 0.1 0.0 - 0.1 K/cumm [facility] Neutrophil pct 69.3 % [facility] Comment: Interpretive Data Percent cell count reference ranges are not reported, since discordance with absolute values may lead to misinterpretation of CBC data. Current Interpretive Data was last revised on 2017. Imm gran pct 0.4 % [facility] Comment: Interpretive Data Percent cell count reference ranges are not reported, since discordance with absolute values may lead to misinterpretation of CBC data. Current Interpretive Data was last revised on 2017. Lymphocyte pct 20.8 % [facility] Comment: Interpretive Data Percent cell count reference ranges are not reported, since discordance with absolute values may lead to misinterpretation of CBC data. Current Interpretive Data was last revised on 2017. Monocyte pct 7.3 % [facility] Comment: Interpretive Data Percent cell count reference ranges are not reported, since discordance with absolute values may lead to misinterpretation of CBC data. Current Interpretive Data was last revised on 2017. Eosinophil pct 1.5 % [facility] Comment: Interpretive Data Percent cell count reference ranges are not reported, since discordance with absolute values may lead to misinterpretation of CBC data. Current Interpretive Data was last revised on 2017. Basophil pct 0.7 % [facility] Comment: Interpretive Data Percent cell count reference ranges are not reported, since discordance with absolute values may lead to misinterpretation of CBC data. Current Interpretive Data was last revised on 2017. Blood 09/04/2024 10:5 1 AM EDUCATION INSTRUCTOR 09/04/2024 11:06 AM EDUCATION INSTRUCTOR Nabil Newman MD LAB BLOOD ORDERABLES Final Resul t Performing Organization Address [facility] de Phone Number [address] [place] [address] * (ABNORMAL) CBC with auto differential (09/04/2024 10:51 AM EDUCATION INSTRUCTOR) WBC 8.1 3.8 - 9.9 K/cumm Hgb 12.4 11.9 - 15.5 g/dL [facility] Hct 38.2 35.6 - 45.5 % [facility] Plt 512(H) 150 - 400 K/cumm [facility] MPV 9.0(L) 9.1 - 12.3 fL [facility] RBC 4.28 3.90 - 5.20 M/cumm [facility] MCV 89.3 81.3 - 96.4 fL [facility] MCH 29.0 27.1 - 33.3 pg [facility] MCHC 32.5 32.3 - 35.7 g/dL [facility] RDW CV 13.0 11.1 - 14.9 % [facility] RDW SD 42.1 35.7 - 48.1 fL [facility] NRBC abs 0.00 0.00 - 0.01 K/cumm [facility] Blood 09/04/2024 10:5 1 AM EDUCATION INSTRUCTOR 09/04/2024 11:06 AM EDUCATION INSTRUCTOR Nabil Newman MD LAB BLOOD ORDERABLES Final Resul t Performing Organization Address [facility] de Phone Number [address] [place] [place] [address] * Gliadin antibody, IgA (09/04/2024 10:51 AM EDUCATION INSTRUCTOR) Anti-gliadin, IgA 4.8 <=14.9 units/mL Comment: Interpretive data Negative: <15 units/mL Positive: > or equal to 15 units/mL Current interpretive data was last revised on 2016. Testing performed by: [facility], [address] [place]., [address] Blood 09/04/2024 10:5 1 AM EDUCATION INSTRUCTOR 09/04/2024 2:13 PM EDUCATION INSTRUCTOR us Nabil Newman MD LAB BLOOD ORDERABLES Final Resul t Performing Organization Address [facility] de Phone Number [address] [place] [address] * Tissue transglutaminase IgA (TGG-IgA Ab) (09/04/2024 10:51 AM EDUCATION INSTRUCTOR) TTG ab, IgA <0.5 <=14.9 units/mL Comment: Interpretive data Negative: <15 units/mL Positive: > or equal to 15 units/mL Current interpretive data was last revised on 2016. Testing performed by: [facility], [address] [place]., [address] Blood 09/04/2024 10:5 1 AM EDUCATION INSTRUCTOR 09/04/2024 2:10 PM EDUCATION INSTRUCTOR us Nabil Newman MD LAB BLOOD ORDERABLES Final Resul t Performing Organization Address City/[facility] Co de Phone Number [address] [place] [address] * Lipase (09/04/2024 10:51 AM EDUCATION INSTRUCTOR) Lipase 40 10 - 99 Units/L Blood 09/04/2024 10:5 1 AM EDUCATION INSTRUCTOR 09/04/2024 11:06 AM EDUCATION INSTRUCTOR us Nabil Newman MD LAB BLOOD ORDERABLES Final Resul t Performing Organization Address [facility]/ZIP Co de Phone Number MARIYA [address] [facility] [place] [place] [address] * Comprehensive metabolic panel (09/04/2024 10:51 AM EDUCATION INSTRUCTOR) Sodium 142 135 - 145 mmol/L Potassium, pl 4.1 3.3 - 4.9 mmol/L [facility] Chloride 107 97 - 110 mmol/L [facility] CO2 24 22 - 32 mmol/L [facility] Anion gap 11 2 - 15 mmol/L [facility] BUN 9 6 - 25 mg/dL [facility] Creatinine 0.73 0.60 - 1.10 mg/dL [facility] Glucose 89 70 - 199 mg/dL [facility] Comment: Interpretive Data Fasting glucose >/= [...] 2022. Calcium 9.5 8.5 - 10.3 mg/dL [facility] Bilirubin, total 0.2 0.1 - 1.2 mg/dL [facility] Protein, pl 7.6 6.5 - 8.5 g/dL [facility] Albumin 4.1 3.5 - 5.0 g/dL [facility] Alk phos 70 40 - 130 Units/L [facility] ALT 11 7 - 45 Units/L [facility] AST 21 10 - 45 Units/L [facility] Blood 09/04/2024 10:5 1 AM EDUCATION INSTRUCTOR 09/04/2024 11:06 AM EDUCATION INSTRUCTOR Nabil Newman MD LAB BLOOD ORDERABLES Final Resul t Performing Organization Address [facility]/ZIP Co de Phone Number MARIYA [address] [facility] [place] [address] * Horizon 106 carrier screen - Miscellaneous Test (08/31/2024) Miscellaneous 08/31/2024 Bridget Cheney MD LAB BLOOD ORDERABLES Fin al Result EXTERNAL LAB * US Abdomen Complete (08/25/2024 9:57 AM EDUCATION INSTRUCTOR) Anatomical Region Laterality Modality Abdomen N/A Ultrasound 08/25/2024 10:0 4 AM EDUCATION INSTRUCTOR Impressions 08/25/2024 10:14 AM EDUCATION INSTRUCTOR Normal abdominal sonogram. Dictated by: Navya Jenkins M.D. The radiology attending physician has personally reviewed this study, and had reviewed and/or edited this written report and agrees with it. Electronically signed by: Jane Patton M.D. Narrative 08/25/2024 10:14 AM EDUCATION INSTRUCTOR EXAMINATION: COMPLETE ABDOMINAL SONOGRAM HISTORY: 29-year-old female [...] W Morphology when Performed (08/21/2024 2:41 PM EDUCATION INSTRUCTOR) Anatomical Region Laterality Modality Chest N/A Computed Tomogra phy 08/21/2024 3:05 PM EDUCATION INSTRUCTOR Impressions 08/21/2024 3:33 PM EDUCATION INSTRUCTOR 1. Calculated calcium score of 0. 2. No atherosclerotic disease. 3 Normal left ventricular size and function. Ejection Fraction 62% without regional wall motion abnormalities. Dictated by: Kendall Lauren M.D. The radiology attending physician has personally reviewed this study, and had reviewed and/or edited this written report and agrees with it. Electronically signed by: Brian Pederson M.D. Narrative 08/21/2024 3:33 PM EDUCATION INSTRUCTOR EXAMINATION: CORONARY CT ANGIOGRAM HISTORY: Abnormal stress [...] d * POCT creatinine (08/21/2024 2:19 PM EDUCATION INSTRUCTOR) Creatinine POC 0.7 0.6 - 1.1 mg/dL Blood 08/21/2024 2:19 PM EDUCATION INSTRUCTOR 08/21/2024 2:19 PM EDUCATION INSTRUCTOR Karly Flores MD LAB POCT ORDERABLES - D EVICE Final Result [facility] [address] [facility] Department [place] [address] * NM MPI SPECT (Rest and/or Stress) Multiple Studies (07/07/2024 11:51 AM EDUCATION INSTRUCTOR) Anatomical Region Laterality Modality Body N/A Nuclear Medicine 07/07/2024 8:40 AM EDUCATION INSTRUCTOR Narrative 07/07/2024 12:48 PM EDUCATION INSTRUCTOR [facility] Cardiology [address], [place] [address] [address] [facility] [address], [place] [address] P:[phone] P:[phone] MPI Imaging Report Patient Name: SHARDA STARK K : 1995 Study Date: 07/07/2024 8:40:18 AM Gender: F Tech: [facility] Location: Testing Center Ref Provider: KARLY FLORES [...] By: Dave Lutz MD 07/07/2024 12:48:28 PM EDUCATION INSTRUCTOR Electronically Signed By: Dave Lutz MD 07/07/2024 12:48:28 PM EDUCATION INSTRUCTOR Procedure Note Dave Lutz MD - 07/07/2024 [facility] Cardiology [address], [place] [address] [address], [place] [address] P:[phone] P:[phone] MPI Imaging Report Patient Name: SHARDA STARK K : 1995 Study Date: 07/07/2024 8:40:18 AM Gender: F Tech: [facility] Location: Testing Center Ref Provider: KARLY FLORES [...] By: Dave Lutz MD 07/07/2024 12:48:28 PM EDUCATION INSTRUCTOR Electronically Signed By: Dave Lutz MD 07/07/2024 12:48:28 PM EDUCATION INSTRUCTOR [facility] James Flores MD IM NM PROCEDURES Final Result * PAP SMEAR WITH HPV (03/14/2020) Scribed Pap Smear w/HPV Normal Historical Provider HEALTH MAINTENANCE Final Result from Last 3 Months or Most Recently Relevant to Health Maintenance Insurance [facility] Care Teams Economic Adviser Relationship Specialty Start Date End Date Romeo Mcqueen MD PCP - General Family Medicine 02/16/22 Car Romero MD [address] [place], [place] [id number] Consulting Physician Pain Management 10/17/23 Evans Mota MD [address] [facility] [address] [place] [address] Consulting Physician Neurology 01/25/24 Nolan Robbins MD [address] [facility] [address] [place] [address] Consulting Physician Neurology 01/25/24
--- OUTSIDE RECORDS SUMMARY | 2024-09-23 02:47 | XMS_ITS | Encounter Summary ---
Author Organization [facility] Healthcare Address [address] [place] [address] Care Team Providers Care Energy Economist Name Role Phone Romeo Mcqueen MD Primary Care Provider [phone] Car Romero MD Unavailable [phone] Evans Mota MD Unavailable Nolan Robbins MD Unavailable Encounter Details Date Type Department Care Team (Late st Contact Info) Description 08/24/2024 Results Follow-Up [facility] Cardiology [address] [place] [address] Debbie Flores MD [address] [facility] [address], [place] [address] Social History Tobacco Use Types [...] on file Legal Sex Female 7:38 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 Gender Identity Not on file Sexual Orientation [...] on filedocumented in this encounter Care Teams Energy Economist Relationship Specialty Start Date End Date Romeo Mcqueen MD PCP - General Family Medicine 02/16/22 Car Romero MD [address] [place] [address] Consulting Physician Pain Management 10/17/23 Evans Mota MD [address] [place] [address] Consulting Physician Neurology 01/25/24 Nolan Robbins MD [address] [facility] [address] [place] [address] Consulting Physician Neurology 01/25/24 documented as of this encounter
--- OUTSIDE RECORDS SUMMARY | 2024-09-23 02:47 | XMS_ITS | Encounter Summary ---
Author Organization [facility] Address [address] [place] [address] Care Team Providers Care Foreign Car Mechanic Name Role Phone Unavailable Primary Care Provider Unavailabl e Reason for Visit * Reason Onset Date Comments Medication Authorization 08/14/2024 Encounter Details Date Type Department Care Team (Late st Contact Info) Description 08/14/2024 Telephone [place] [facility] [address] [facility] [address] [place] [address] Nolan Robbins MD [address] [facility] [address] [place] [address] Medication Authorization Social History Tobacco [...] - Louis Chakraborty - 08/30/2024 9:45 AM EXECUTIVE TEAM LEADER Annelise with [employer] called to check on the status of this PA. (ask for someone in insurance verification) UTIVE TEAM LEADER * Telephone Encounter - Urbano George - 08/14/2024 11:23 AM EXECUTIVE TEAM LEADER Medication PA Request Caller: Nacny from [facility] Medication: Ofatumumab Generic or Brand name: [facility]: [address] [address] Fax: [phone] How many doses left? Unknown UTIVE TEAM LEADER documented in this encounter Plan of Treatment Not on file documented as of this encounter Visit Diagnoses Not on filedocumented in this encounter
--- OUTSIDE RECORDS SUMMARY | 2024-09-23 02:47 | XMS_ITS | Encounter Summary ---
Author Organization [facility] Address [address] [place] [address] Care Team Providers Care Writer Producer Name Role Phone Unavailable Primary Care Provider Unavailabl e Encounter Details Date Type Department Care Team (Latest Contact Info) Description 07/24/2024 Results Follow-Up [facility] Neurology - [address] [place] [address] Nolan Robbins MD [address] [facility] [address] [place] [address] CBC WITH DIFFERENTIAL, DNA AUTOABS [...]
--- OUTSIDE RECORDS SUMMARY | 2024-09-23 02:47 | XMS_ITS | Encounter Summary ---
Author Organization [facility] Healthcare Address [address] [place] [address] Care Team Providers Care Propellant Charge Loader Name Role Phone Romeo Mcqueen MD Primary Care Provider Car Romero MD Unavailable [phone] Evans Mota MD Unavailable Nolan Robbins MD Unavailable Encounter Details Date Type Department Care Team (Late st Contact Info) Description 08/25/2024 Results Follow-Up [facility] Gastroenterology at [address] [place] [address] Nabil Newman MD [address] [place] [address] [address] [place] [address] Social History Tobacco Use Types [...] on file Legal 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 Gender Identity Not on file Sexual Orientation [...] on filedocumented in this encounter Care Teams Propellant Charge Loader Relationship Specialty Start Date End Date Romeo Mcqueen MD PCP - General Family Medicine 02/16/22 Car Romero MD [address] [place] [address] Consulting Physician Pain Management 10/17/23 Evans Mota MD [address] [place] [address] Consulting Physician Neurology 01/25/24 Nolan Robbins MD [address] [facility] [address] [place] [address] Consulting Physician Neurology 01/25/24 documented as of this encounter
--- OUTSIDE RECORDS SUMMARY | 2024-09-23 02:47 | XMS_ITS | Encounter Summary ---
Author Organization [facility] Address [address] [place] [address] Care Team Providers Care Dry Cell Assembly Supervisor Name Role Phone Unavailable Primary Care Provider Unavailabl e Encounter Details Date Type Department Care Team (Late st Contact Info) Description 03/10/2023 Abstract [facility]3] Neurology [address] [facility] [address] [place] [address] Alba Pappas Social History Tobacco [...]
[2024-09-23] MEDS: predniSONE 20 MG TABLET 60 MG PO (02:56)
== END 2024-09-23 03:03 | disposition home or self-care (01) ==
LOC: ANHED 02:44
PROVIDERS: Emergency Provider Emergency Medicine; PCP Family Medicine
DX: J02.9 Acute pharyngitis, unspecified (principal); G35 Multiple sclerosis; I10 Essential (primary) hypertension; F41.9 Anxiety disorder, unspecified; Z79.899 Other long term (current) drug therapy
CPT/HCPCS: 87651; 99283; J7512

== ENCOUNTER 2025-01-23 18:58 | Emergency (ER) | payer OTHER, SELFPAY ==
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
[2025-01-23 19:14] VITALS: BP 110/74; PULSE 80; RESP 14; TEMP 36.7; O2SAT 100
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
== END 2025-01-23 20:00 | disposition home or self-care (01) ==
PROVIDERS: Emergency Provider Nurse Practitioner Family; PCP Family Medicine
DX: S16.1XXA Strain of muscle, fascia and tendon at neck level, initial encounter (principal); V49.60XA Unspecified car occupant injured in collision with unspecified motor vehicles in traffic accident, initial encounter; M54.9 Dorsalgia, unspecified; I10 Essential (primary) hypertension; G35 Multiple sclerosis
CPT/HCPCS: 72040; 99213; G0463

== ENCOUNTER 2025-01-28 00:21 | Emergency (ER) | payer OTHER, SELFPAY ==
--- NOTE | ~2025-01-28 | XR_ITS ---
HISTORY: injury, pain to 3rd digit COMPARISON: None TECHNIQUE: 3 views of the right hand were performed. FINDINGS: No acute fracture is identified. The joint spaces are preserved. The carpal arcs are intact. Trace radiocarpal joint space narrowing with sclerosis of the distal radius is present. Negative ulnar variance is detected. Bone mineralization is age-appropriate. No significant soft tissue swelling. No radiopaque foreign body is identified. IMPRESSION: No acute fracture or dislocation within the right hand, as detailed above. Reviewed, dictated and finalized at location A.
--- OUTSIDE RECORDS SUMMARY | 2025-01-28 00:24 | XMS_ITS | Clinical Summary ---
Author Organization [facility] Address [address] [place] [address] Care Team Providers Care Front Of House Manager Name Role Phone None, Provider MD Primary [...] Date Headache 04/10/2020 Abnormal brain MRI 04/10/2020 Encounters Date Type Department Care Team Description 01/25/2025 Travel from Last 3 Months Immunizations Immunization Administration Dates Next Due Tdap (Boostrix) 01/09/2019 [...] 04/11/2020 How often do you attend chur or jehovah's witness services? Never 04/11/2020 Do you belong to any clubs o r organizations such as restorationist groups, unions, fraternal or athletic groups, or [...] medical care, and heating? Somewhat hard 04/11/2020 [facility] of Occupat ional Health - Occupational Stress Questionnaire Answer Date Recorded [...] 11:55 AM CDT Height 154.9 cm (5' 1) 12/28/2023 11:55 AM CDT Body Mass Index 32.12 12/28/2023 11:55 AM CDT Plan of Treatment Health Maintenance Due Date Last Done Comments Cervical Cancer Screening Pap Smear (Age 21 to 29) Every 3 Years 1997 Cervical Cancer Screening 1997 Annual Physical 2000 HPV Vaccines (3 - 3-dose series) 10/30/2015 08/07/2015, 09/03/2014 COVID-19 Vaccine ( season) 2024 DTaP, Tdap and Td Vaccines (7 - Td or Tdap) 10/22/2034 10/22/2024, 01/09/2019, 08/07/2015, Additional history exists Hepatitis B Vaccines Completed 12/23/2000, 04/23/2000, 1997 Meningococcal Vaccine Completed 01/08/2014 Hepatitis C Completed 11/07/2020 Chlamydia Screening Females ages 16-24 Discontinued 12/28/2023, 09/24/2016 Meningococcal B Vaccine Aged Out No l onger eligible based on patient's age to complete this topic Pneumococcal Vaccine: Pediatrics (0 to 5 Years) and At-Risk Patients (6 to 49 Years) Aged Out No longer eligible based on patient's age to complete this topic RSV Immunizations Under 20 Months Aged Out No longer eligible based on patient's age to complete this topic Goals Goal Patient Goal Type Associated Problems Recent Progress Patient-Stated? Author Health - patient able to perform ADLs independently General No Lilli Levy, TARIFF CLERK Procedures Procedure Name Priority Date/Time Associated Diagnosis Comments CHLAMYDIA GC RNA STAT 12/28/2023 12:1 5 PM CDT from Last 3 Months or Most Recently Relevant to Health Maintenance Results * CHLAMYDIA GC RNA (12/28/2023 12:15 PM CDT) SPEC DESCRIPTION VAGINAL SPECIMEN 12/28/2023 2:34 PM CDT [facility] CHLAMYDIA RNA TMA NEGATIVE NEGATIVE 024 12:14 AM CDT [facility] Comment:PERFORMED BY NUCLEIC ACID AMPLIFICATION N.GONORRHOEAE RNA TMA NEGATIVE NEGATIVE 12/30/2023 12:14 AM CDT [facility] Comment:PERFORMED BY NUCLEIC ACID AMPLIFICATION VAGINAL STRUCTURE / Unknown 12/28/2023 12:15 PM CDT Katy DEJESUSP MICROBIOLOGY - GENERAL VIDYA CASTANEDA Final Result [facility] [address] [place] [address], [facility] [address] [place] [address], from Last 3 Months or Most Recently Relevant to Health Maintenance [place] [address] [address] [place] [address] Advance Directives * Full Code (Latest Code Status on File) Date Activated Date Inactivated Comments 04/11/2020 12:24 AM 04/15/2020 9:39 PM Care Teams Front Of House Manager Relationship Specialty Start Date End Date None, Provider, PCP - General 04/10/20
[2025-01-28 00:25] VITALS: BP 110/75; PULSE 95; RESP 18; TEMP 36.9; O2SAT 100
--- NOTE | 2025-01-28 01:00 | PC.NURSE ---
Pt c/o 6/10 aching R arm pain, numbness and tingling. Per pt was taking dog out when he pulled on leash and bent finger.
--- OUTSIDE RECORDS SUMMARY | 2025-01-28 01:26 | XMS_ITS | Encounter Summary ---
Author Organization [facility] Address [address] [place] [address] Care Team Providers Care Manager Corporate Name Role Phone Unavailable Primary Care Provider Unavailabl e Encounter Details Date Type Department Care Team (Late st Contact Info) Description 03/10/2023 Abstract [facility] Neurology [place] [address] [facility] [address] [place] [address] lAba Pappas Social History Tobacco Use Types Packs/Day [...]
--- OUTSIDE RECORDS SUMMARY | 2025-01-28 01:26 | XMS_ITS | Clinical Summary ---
Author Organization [facility] Address [address] [place] [address] Phone Care Team Providers Care Destaticizer Feeder Name Role Phone Unavailable Primary Care Provider [...] Encounters Date Type Department Care Team Description 01/17/2025 External Device Data STL ABSTRACTION Provider, Abstract 01/16/2025 External Device Data STL ABSTRACTION Provider, Abstract 01/02/2025 External Device Data STL ABSTRACTION Provider, Abstract from Last 3 Months Social History Tobacco [...] CDT pt reported Height 154.9 cm (5' 1) 12/24/2023 8:39 AM CDT Body Mass Index 33.57 12/24/2023 8:39 AM CDT Plan of Treatment Health Maintenance Due Date Last Done Comments HPV VACCINES (3 - 3-dose series) 10/30/2015 08/07/2015, 08/07/2015, 09/03/2014, Additional history exists CERVICAL CANCER SCREENING 2018 HPV/Cotest (21-29) 2018 PAP SMEAR 2018 INFLUENZA VACCINE (#1) 2025 DTAP/TDAP/TD VACCINES (7 - T d or Tdap) 01/09/2029 01/09/2019, 08/07/2015, 01/02/2002, Additional history exists HEPATITIS B VACCINES Completed 12/23/2000, 12/23/2000, 04/23/2000, Additional history exists Insurance [address] [place], [place] [id number] [place] [address] MEDICAID
--- OUTSIDE RECORDS SUMMARY | 2025-01-28 01:26 | XMS_ITS | Clinical Summary ---
Author Organization [facility] Address [address] [place] [address] Care Team Providers Care Wedger Name Role Phone None, Provider MD Primary [...] How often do you attend chur or mandaen services? Never 04/11/2020 Do you belong to any clubs o r organizations such as mandaeism groups, unions, fraternal or athletic groups, or [...] medical care, and heating? Somewhat hard 04/11/2020 [facility] [place] of Occupat ional Health - Occupational Stress [...] perform ADLs independently General No Lilli Levy, PINKING MACHINE OPERATOR Procedures Procedure Name Priority Date/Time Associated Diagnosis Comments CHLAMYDIA GC RNA STAT 12/28/2023 12:1 5 PM CDT from Last 3 Months or Most Recently Relevant to Health Maintenance Results * CHLAMYDIA GC RNA (12/28/2023 12:15 PM CDT) SPEC DESCRIPTION VAGINAL SPECIMEN 12/28/2023 2:34 PM CDT [facility] CHLAMYDIA RNA TMA NEGATIVE NEGATIVE 024 12:14 AM CDT [facility] Comment:PERFORMED BY NUCLEIC ACID AMPLIFICATION N.GONORRHOEAE RNA TMA NEGATIVE NEGATIVE 12/30/2023 12:14 AM CDT [facility] Comment:PERFORMED BY NUCLEIC ACID AMPLIFICATION VAGINAL STRUCTURE / Unknown 12/28/2023 12:15 PM CDT Katy DEJESUSP MICROBIOLOGY - GENERAL VIDYA CASTANEDA Final Result [facility] [address] [place] [address], [facility] [address] [place] [address], from Last 3 Months or Most Recently Relevant to Health Maintenance [place] [address] [place] [address] Advance Directives * Full Code (Latest Code Status on File) Date Activated Date Inactivated Comments 04/11/2020 12:24 AM 04/15/2020 9:39 PM Care Teams Wedger Relationship Specialty Start Date End Date None, Provider, PCP - General 04/10/20
--- OUTSIDE RECORDS SUMMARY | 2025-01-28 01:26 | XMS_ITS | Encounter Summary ---
Author Organization [facility] Address [address] [place] [address] Care Team Providers Care Process Improvement Engineer Name Role Phone Unavailable Primary Care Provider Unavailabl e Encounter Details Date Type Department Care Team (Latest Contact Info) Description 07/24/2024 Results Follow-Up [facility] Neurology - [address] [place] [address] Nolan Robbins MD [address] [facility] [id number] [place] [address] CBC WITH DIFFERENTIAL, DNA AUTOABS [...]
[2025-01-28 01:40] VITALS: BP 108/70; PULSE 88; RESP 16; O2SAT 99
--- NOTE | 2025-01-28 04:55 | ED.UPPEXIN ---
HPI - Extremity Injury (Upper) General Chief Complaint: Extremity Injury, Upper Stated Complaint: finger injury Time Seen by Provider: 01/28/25 00:59 History of Present Illness HPI narrative: Patient presents here after getting her right middle finger pulled when her dog leash got caught on her finger and her dog saw a squirrel and chased after it. She is able to move it but has some pain and swelling Related Data Home Medications ?Medication ?Instructions ?Recorded ?Confirmed ?Last Taken ?Type cholecalciferol (vitamin D3) 50 50 mcg PO DAILY 10/07/21 10/07/21 Unknown History mcg (2,000 unit) capsule cyclobenzaprine 5 mg tablet 5 mg PO TID PRN Pain 10/07/21 10/07/21 Unknown History dimethyl fumarate 240 mg 240 mg PO BID 10/07/21 10/07/21 Unknown History capsule,delayed release (Tecfidera) gabapentin 300 mg capsule 300 mg PO DAILY 10/07/21 10/07/21 Unknown History nortriptyline 25 mg capsule 25 mg PO QHS 10/07/21 10/07/21 Unknown History sumatriptan succinate 100 mg tablet mg PO 04/14/22 Unknown History ciclopirox 1 % shampoo topical 09/18/24 Unknown History clobetasol 0.05 % scalp solution topical 09/18/24 Unknown History duloxetine 60 mg capsule,delayed mg PO 09/18/24 Unknown History release fremanezumab-vfrm 225 mg/1.5 mL mg subcut 09/18/24 Unknown History subcutaneous auto-injector (Ajovy) indomethacin 50 mg capsule mg 09/18/24 Unknown History ketoconazole 2 % shampoo topical 09/18/24 Unknown History linaclotide 145 mcg capsule mcg 09/18/24 Unknown History (Linzess) montelukast 10 mg tablet mg 09/18/24 Unknown History ofatumumab 20 mg/0.4 mL mg subcut 09/18/24 Unknown History subcutaneous pen injector (Kesimpta Pen) tretinoin 0.025 % topical cream applic topical 09/18/24 Unknown History Allergies Allergy/AdvReac Type Severity Reaction Status Date / Time dimethyl fumarate (From Allergy Intermediate hot flashes Verified 01/28/25 00:28 Tecfidera) Review of Systems Review of Systems: All systems reviewed & are unremarkable except as noted in HPI and below PMFSH Past Medical History Medical History Multiple sclerosis Anxiety Hypertension Headache Surgical History Surgical History No history of previous surgery Social History Social History Smoking status: Never smoker Alcohol intake: never Substance use: never Living arrangements: with family Gender identity (if verbalized by the patient): Female Exam Narrative: EXAMINATION OF ORGAN SYSTEMS/BODY AREAS: Constitutional: Vital signs per nursing GENERAL:[No acute distress, non-toxic appearing.] HEAD: Normal with no signs of head trauma. EYES: EOMI, conjunctiva normal ENT: Hearing grossly intact LUNGS: Nonlabored breathing. HEART: [Regular rate and rhythm], normal capillary refill ABD: [Soft], [nontender to palpation] EXT: Normal range of motion; some tenderness to palpation to the right middle finger. SKIN: [No rashes or lesions.] NEURO: [Alert and oriented x 3. No gross focal sensory or strength deficits.] PSYCH: Normal affect Course Vital Signs Vital signs: Vital Signs Temperature 98.5 F 01/28/25 00:25 Pulse Rate 95 01/28/25 00:25 Respiratory Rate 18 01/28/25 00:25 Blood Pressure 110/75 01/28/25 00:25 Pulse Oximetry 100 01/28/25 00:25 Oxygen Delivery Room Air 01/28/25 00:25 Temperature 98.5 F 01/28/25 00:25 Pulse Rate 88 01/28/25 01:40 Respiratory Rate 16 01/28/25 01:40 Blood Pressure 108/70 01/28/25 01:40 Pulse Oximetry 99 01/28/25 01:40 Oxygen Delivery Room Air 01/28/25 00:25 MDM - Extremity Injury (Upper) MDM Narrative Medical decision making narrative: Patient presents here with right middle finger injury. She is neurovascularly intact with normal range of motion. Finger x-ray on my independent interpretation does not show any obvious dislocation or fracture. Patient agreeable to outpatient management with return precautions Discharge Plan Discharge Clinical Impression: Finger sprain Patient Disposition: Home Condition: Stable Instructions: Finger Sprain (ED) Additional Instructions: Please follow up with your doctor; you can take ibuprofen and Tylenol, you can always return to the emergency room for any further issues. Patient Language: Chinese Prescriptions: No Action ketoconazole 2 % shampoo TOPICAL tretinoin 0.025 % cream TOPICAL indomethacin 50 mg capsule montelukast 10 mg tablet clobetasol 0.05 % solution TOPICAL ciclopirox 1 % shampoo TOPICAL duloxetine 60 mg capsule,delayed release(DR/EC) PO Linzess 145 mcg capsule Ajovy Autoinjector 225 mg/1.5 mL auto-injector SUBCUT Kesimpta Pen 20 mg/0.4 mL pen injector SUBCUT cyclobenzaprine 5 mg tablet 5 mg PO TID PRN (Reason: muscle spasm) Qty: 8 0RF Rx Instructions: May take 1 or 2 tablets. dimethyl fumarate [Tecfidera] 240 mg capsule,delayed release(DR/EC) 240 mg PO BID gabapentin 300 mg capsule 300 mg PO DAILY cholecalciferol (vitamin D3) 50 mcg (2,000 unit) capsule 50 mcg PO DAILY nortriptyline 25 mg capsule 25 mg PO QHS cyclobenzaprine 5 mg tablet 5 mg PO TID PRN (Reason: Pain) celecoxib [Celebrex] 200 mg capsule 200 mg PO BID Qty: 14 0RF sumatriptan succinate 100 mg tablet PO lidocaine 4 % adhesive patch,medicated 1 patch TOPICAL Q24H PRN (Reason: pain) 10 Days Qty: 10 0RF Rx Instructions: may leave on for up to 12 hrs Follow-up/Referrals: Charisse,MD Romeo [Primary Care Provider] - 2 Days
== END 2025-01-28 01:46 | disposition home or self-care (01) ==
LOC: ANHED 01:24
PROVIDERS: Emergency Provider Emergency Medicine; PCP Family Medicine
DX: S63.612A Unspecified sprain of right middle finger, initial encounter (principal); G35 Multiple sclerosis; I10 Essential (primary) hypertension; F41.9 Anxiety disorder, unspecified; Z79.899 Other long term (current) drug therapy; X50.9XXA Other and unspecified overexertion or strenuous movements or postures, initial encounter; Y93.K1 Activity, walking an animal
CPT/HCPCS: 73130; 99283